=== PATIENT | female | born 1940 | race Caucasian/White ===

== ENCOUNTER 2017-02-14 12:35 | Inpatient (IN) | payer MEDICARE ==
[~2017-02-14] VITALS: Ht 157.5 cm; Wt 75.0 kg
[2017-02-14] MEDS ORDERED: FUROSEMIDE 40 MG INJ IV ONE (13:00)
--- NOTE | 2017-02-14 13:03 | ERD ---
ER Documentation Chief Complaint Chief Complaint SENT FROM [facility] FOR ELEVATED WBC. HPI 76-year-old woman with a history of congestive heart failure and tracheostomy, mechanical ventilator dependence presents with shortness of breath and pulmonary edema identified on recent chest x-ray. She was also sent here for evaluation of leukocytosis. She denies pain, no fevers or chills, no vomiting, no diarrhea, no headache or blurry vision. Patient was transported here by EMS without further complications ROS All systems reviewed and are negative except as per history of present illness. PMhx/Soc Obesity, CHF, atrial fibrillation, tracheostomy on mechanical ventilator dependence, hypertension, anemia, candidal infections of the urinary tract, GERD , hyperlipidemia, hypothyroidism, diffuse muscle weakness, depression, COPD Physical Exam Vitals Vital Signs Date Time Temp Pulse Resp B/P Pulse Ox O2 Delivery O2 Flow Rate FiO2 02/14/17 12:53 82 16 100 60 02/14/17 12:44 99.5 80 16 145/63 99 Physical Exam GENERAL: Well-developed, dyspneic, febrile HEENT: Moist mucous membranes, tracheostomy in place, pink conjunctiva, no cervical spine tenderness or step-off deformities, no goiter, no jaundice or icterus, extraocular movements intact without pain. No submandibular induration , and no pharyngeal erythema NEURO: Alert and oriented 3, cranial nerves II through XII intact bilaterally, pupils equal round reactive to light, no focal deficits or facial asymmetry, lower extremity paresis CARDIAC: Regular rate and rhythm, no murmurs rubs or gallops LUNGS: Poor breath sounds, crackles ABDOMEN: Soft nontender, no guarding, no rigidity, no rebound, no psoas sign no obturator sign. SKIN: Warm and dry to touch, no abrasions, contusions, or hematomas, no lacerations, no ecchymosis, no target lesions, and without ulcers EXTREMITIES: No clubbing cyanosis or edema, diffuse muscular wasting, calves are bilaterally symmetrical, no Homans sign, no popliteal cord sign. Distal pulses equal and bilateral PSYCH: Normal affect without agitation or irritability Result Diagram: 02/14/17 1300 02/14/17 1300 Results 24 hrs Laboratory Tests Test 02/14/17 13:00 02/14/17 13:51 White Blood Count 22.410^3/ul Red Blood Count 3.3110^6/ul Hemoglobin 10.3g/dl Hematocrit 32.4% Mean Corpuscular Volume 97.9fl Mean Corpuscular Hemoglobin 31.1pg Mean Corpuscular Hemoglobin Concent 31.8g/dl Red Cell Distribution Width 15.5% Platelet Count 37930^3/UL Mean Platelet Volume 9.9fl Neutrophils % 88.7% Lymphocytes % 3.7% Monocytes % 6.2% Eosinophils % 0.4% Basophils % 0.1% Nucleated Red Blood Cells % 0.0/100WBC Neutrophils # 19.810^3/ul Lymphocytes # 0.810^3/ul Monocytes # 1.410^3/ul Eosinophils # 0.110^3/ul Basophils # 0.010^3/ul Nucleated Red Blood Cells # 0.010^3/ul Prothrombin Time 16.4Sec Prothrombin Time Ratio 1.3 INR International Normalized Ratio 1.30 Sodium Level 134mmol/L Potassium Level 4.8mmol/L Chloride Level 96mmol/L Carbon Dioxide Level 24mmol/L Anion Gap 19 Blood Urea Nitrogen 20mg/dl Creatinine 0.70mg/dl Glucose Level 101mg/dl Lactic Acid Level 1.4mmol/L Calcium Level 9.0mg/dl Total Bilirubin 0.2mg/dl Direct Bilirubin 0.00mg/dl Indirect Bilirubin 0.2mg/dl Aspartate Amino Transf (AST/SGOT) 57IU/L Alanine Aminotransferase (ALT/SGPT) 63IU/L Alkaline Phosphatase 200IU/L Troponin I 0.041ng/ml B-Type Natriuretic Peptide 990PG/ML Total Protein 6.7g/dl Albumin 3.6g/dl Globulin 3.10g/dl Albumin/Globulin Ratio 1.16 Lipase 62U/L Urine Color YELLOW Urine Clarity CLEAR Urine pH 6.0 Urine Specific [place] 1.012 Urine Ketones NEGATIVEmg/dL Urine Nitrite NEGATIVEmg/dL Urine Bilirubin NEGATIVEmg/dL Urine Urobilinogen NEGATIVEmg/dL Urine Leukocyte Esterase NEGATIVELeu/ul Urine Microscopic RBC 6/HPF Urine Microscopic WBC 1/HPF Urine Hemoglobin 1+mg/dL Urine Glucose NEGATIVEmg/dL Urine Total Protein NEGATIVEmg/dl Current Medications Medications (Trade) Dose Ordered Sig/Kaykay Route PRN Reason Start Time Stop Time Status Last Admin Dose Admin Furosemide 60 mg 60 mg ONCE ONCE IV 02/14/17 13:00 02/14/17 13:01 DC 02/14/17 13:47 Cefepime HCl 50 ml @ 100 mls/hr ONCE ONCE IVPB 02/14/17 13:30 02/14/17 13:59 DC 02/14/17 13:47 Azithromycin (Zithromax 500mg/ NS (Pmx)) 250 ml @ 250 mls/hr ONCE ONCE IVPB 02/14/17 14:30 02/14/17 15:29 Procedures/MDM IV line was established patient was placed on bus driver/monitor rhythm strip revealed a sinus rhythm at about 80 bpm with upright P and T waves. Patient was febrile, blood and urine cultures have been ordered results are pending I will follow-up. I do not suspect sepsis. EKG performed, read by me revealed a normal sinus rhythm at 77 bpm, normal axis , narrow QRS complex, no concerning ST elevations or depressions noted. One view chest x-ray performed, read by me revealed pulmonary edema and early infiltrates at the bases bilaterally, no pneumothorax, no air under the diaphragm, tracheostomy tube in place. I administered cefepime 1 g IV and azithromycin 500 mg IV. Patient also also received furosemide 60 mg IV 1 for diuresis CBC revealed a leukocytosis at 22, electrolytes were unremarkable, liver function tests normal, troponin negative, BNP elevated consistent with decompensated heart failure. Lactic acid was low. Urine analysis was negative for infection. Patient is currently on a mechanical ventilator and has been treated with diuretics and IV antibiotics. She will be admitted to telemetry setting for continued medical management and antibiotic therapy. Departure Diagnosis: Primary Impression: Bilateral pneumonia Pneumonia type: due to unspecified organism Lung location: lower lobe of lung Qualified Code: J18.9 - Pneumonia of both lower lobes due to infectious organism Additional Impressions: Acute decompensated heart failure Tracheostomy tube present Leukocytosis Leukocytosis type: lymphocytosis Qualified Code: D72.820 - Lymphocytosis Condition: AMANDEEP Solomon MD Feb 14, 2017 13:03
--- NOTE | 2017-02-14 13:19 | RADRPT ---
PROCEDURE: XR Chest. CLINICAL INDICATION: Shortness of breath. TECHNIQUE: Single frontal view. COMPARISON: None. FINDINGS: The tracheostomy tube is noted. There is mild air space and interstitial disease at the lung bases. The lungs are otherwise clear. The heart size is normal. There is calcification in the aorta consistent with atherosclerosis. There is no pleural effusion. There is no pneumothorax. IMPRESSION: 1. Tracheostomy tube. 2. Mild air space and interstitial disease at the lung bases consistent with pulmonary edema or bib asilar pneumonia. 3. Atherosclerosis. 4. Otherwise unremarkable chest radiograph. RPTAT: QQ .Yahir Land MD, MD Date Time Electronically viewed and signed by .Yahir Land MD, MD on 02/14/2017 13:18 .R/
[2017-02-14] MEDS ORDERED: CEFEPIME 1GM/50 ML (PMX) 50 ML IVPB ONE (13:30)
[2017-02-14 13:31] LABS: BASOPHILS % 0.1 % (0.0-2.0); EOSINOPHILS # 0.1 10^3/ul (0.0-0.5); EOSINOPHILS % 0.4 % (0.0-7.0); HEMATOCRIT 32.4 % (37.0-47.0); HEMOGLOBIN 10.3 g/dl (12.0-16.0); LYMPHOCYTES # 0.8 10^3/ul (0.8-2.9); LYMPHOCYTES % 3.7 % (15.0-51.0); MEAN CORPUSCULAR HEMOGLOBIN 31.1 pg (29.0-33.0); MEAN CORPUSCULAR HGB CONC 31.8 g/dl (32.0-37.0); MEAN CORPUSCULAR VOLUME 97.9 fl (82.0-101.0); MEAN PLATELET VOLUME 9.9 fl (7.4-10.4); MONOCYTE # 1.4 10^3/ul (0.3-0.9); MONOCYTES % 6.2 % (0.0-11.0); NEUTROPHIL # 19.8 10^3/ul (1.6-7.5); NEUTROPHILS % 88.7 % (39.0-77.0); PLATELET COUNT 323 10^3/UL (140-415); RED BLOOD COUNT 3.31 10^6/ul (4.20-5.40); RED CELL DISTRIBUTION WIDTH 15.5 % (11.5-14.5); WHITE BLOOD COUNT 22.4 10^3/ul (4.8-10.8)
[2017-02-14 13:44] LABS: INR 1.3; PROTIME 16.4 Sec (11.9-14.9); PT RATIO 1.3
[2017-02-14 13:49] LABS: ALBUMIN 3.6 g/dl (3.3-4.9); ALBUMIN/GLOBULIN RATIO 1.16; BILIRUBIN,INDIRECT 0.2 mg/dl (0-1.1); BILIRUBIN,TOTAL 0.2 mg/dl (0.2-1.3); CREATININE 0.7 mg/dl (0.44-1.00); POTASSIUM 4.8 mmol/L (3.5-5.1); TOTAL PROTEIN 6.7 g/dl (6.1-8.1)
[2017-02-14 13:59] LABS: TROPONIN-I 0.041 ng/ml (0.00-0.12)
[2017-02-14 14:04] LABS: ADD UMIC YES; UR ASCORBIC ACID 40 mg/dL (NEGATIVE); UR BILIRUBIN (Dip) NEGATIVE (NEGATIVE); UR BLOOD (Dip) 1+ mg/dL (NEGATIVE); UR CLARITY CLEAR (CLEAR); UR COLOR YELLOW (YELLOW); UR GLUCOSE (Dip) NEGATIVE (NEGATIVE); UR KETONES (Dip) NEGATIVE (NEGATIVE); UR LEUKOCYTE ESTERASE (Dip) NEGATIVE Leu/ul (NEGATIVE); UR NITRITE (Dip) NEGATIVE (NEGATIVE); UR RBC 6 /HPF (0-5); UR SPECIFIC GRAVITY (Dip) 1.012 (1.003-1.030); UR TOTAL PROTEIN (Dip) NEGATIVE (NEGATIVE); UR UROBILINOGEN (Dip) NEGATIVE (NEGATIVE)
[2017-02-14] MEDS ORDERED: AZITHROMYCIN 500MG/NS (PMX) 250 ML IVPB ONE (14:30)
[2017-02-14] MEDS ORDERED: ALBU2.5V3 NEB (14:54)
[2017-02-14] MEDS ORDERED: ALLO100T GTB (14:54)
[2017-02-14] MEDS ORDERED: APIX2.5T GTB (14:54)
[2017-02-14] MEDS ORDERED: ASPI81TA3 GTB (14:55)
[2017-02-14] MEDS ORDERED: LORA-441 GTB (14:56)
[2017-02-14] MEDS ORDERED: ATOR20TA38 GTB (14:56)
[2017-02-14] MEDS ORDERED: CHLO473M4 MM (14:57)
[2017-02-14] MEDS ORDERED: DOCU-144 GTB (14:58)
[2017-02-14] MEDS ORDERED: BISA10SU75 PR (14:59)
--- NOTE | 2017-02-14 15:08 | HP ---
Date/Time of Note Date/Time of Note DATE: 02/14/17 TIME: 14:54 Assessment/Plan VTE Prophylaxis VTE Prophylaxis Intervention: other (eliquis) Assessment/Plan Assessment/Plan 76-year-old female who was sent from assisted facility for abnormal chest x-ray and leukocytosis chronically ventilator dependent now managed as follows: 1. Acute respiratory failure superimposed on chronic respiratory failure chronically ventilator dependent via tracheostomy (original indication unclear) 2. Sepsis evidenced by hypoxia, fever and leukocytosis secondary to #3 3. Bilateral pneumonia 4. Paroxysmal atrial fibrillation currently in sinus rhythm 5. GERD 6. Reported Hypothyroidism 7. Hyperlipidemia 8. History of CHF 9. Anemia of chronic disease stable 10. S/p PEG tube but eats using her mouth she says PLAN: * Admit patient for antibiotic treatment, ID review, also send pancultures. We will also continue ventilator management and get pulmonary consultation to help with that * Resume all home medications except aspirin as patient is on Eliquis * Also r/o ACS and get 2D echo to assess hx of CHF * Per reports patient has history of hypothyroidism but is not on any replacement, Send TSH. * Also provide gentle hydration and supportive care. * OK for icechips and meds for oral gratification otherwise patient will be n.p.o. for now until dietary and speech therapy review. * Patient will also require serial labs and interventions as indicated. * Further interventions per clinical course. Prognosis : Guarded HPI/ROS Admit Date/Time Admit Date/Time 02/14/17 Hx of Present Illness 76-year-old female who was sent from the assisted facility where she resides because of shortness of breath abnormal chest x-ray and leukocytosis. She has a history of chronic respiratory failure on mechanical ventilator dependent via tracheostomy. The reason is unclear, and the patient does not know either. Currently she is alert and oriented and in very good spirits and denies pain. She has a PEG tube but she assures me she eats via her mouth. She is able to move all extremities, but does not walk she tells me. Because of the tracheostomy it is very hard to get a good history from her. Her speech is interrupted by episodes of coughing. There was no report of fever, abdominal pain, hematuria, hematochezia, altered mentation or passing out episodes. ROS 12 point review if systems was done and pertinent findings are as noted. PMH/Family/Social Past Medical History 1. Chronic respiratory failure ventilator dependent 2. Paroxysmal atrial fibrillation 3. DYslipidemia 4. Congestive heart failure 5. GERD 6. Hypothyroidism 7. HLD 8. CHF 9. anemia of chronic disease Social History Smoking Status: Never smoker Exam/Review of Systems Vital Signs Vitals VS - Last 72 Hours, by Label Date Time Temp Pulse Resp B/P Pulse Ox O2 Delivery O2 Flow Rate FiO2 02/14/17 12:53 82 16 100 60 02/14/17 12:44 99.5 80 16 145/63 99 Vital Signs Date Time Temp Pulse Resp B/P Pulse Ox O2 Delivery O2 Flow Rate FiO2 02/14/17 12:53 82 16 100 60 02/14/17 12:44 99.5 145/63 Exam Constitutional: alert, oriented, other (obese), No distress Psych: nl mood/affect Head: normocephalic Eyes: PERRL Neck: other (trach to vent) Respiratory: diminished breath sounds, wheezing (occasional) Cardiovascular: regular rate and rhythm, No murmurs/extra sounds Gastrointestinal: bowel sounds, non-tender, other (PEG tube noted), soft Genitourinary - Female: other (motta to BS draining clear urine) Musculoskeletal: other (patient has arthritic changes in both hands) Extremities: No edema Neurological: No focal weakness Labs Result Diagram: 02/14/17 1300 02/14/17 1300 Medications Medications Current Medications Azithromycin (Zithromax 500mg/ NS (Pmx)) 250 ml @ 250 mls/hr ONCE ONCE IVPB ; Start 02/14/17 at 14:30; Stop 02/14/17 at 15:29 Procedures Procedures Laboratory Tests Test 02/14/17 13:00 02/14/17 13:51 White Blood Count 22.410^3/ul Red Blood Count 3.3110^6/ul Hemoglobin 10.3g/dl Hematocrit 32.4% Mean Corpuscular Volume 97.9fl Mean Corpuscular Hemoglobin 31.1pg Mean Corpuscular Hemoglobin Concent 31.8g/dl Red Cell Distribution Width 15.5% Platelet Count 12147^3/UL Mean Platelet Volume 9.9fl Neutrophils % 88.7% Lymphocytes % 3.7% Monocytes % 6.2% Eosinophils % 0.4% Basophils % 0.1% Nucleated Red Blood Cells % 0.0/100WBC Neutrophils # 19.810^3/ul Lymphocytes # 0.810^3/ul Monocytes # 1.410^3/ul Eosinophils # 0.110^3/ul Basophils # 0.010^3/ul Nucleated Red Blood Cells # 0.010^3/ul Prothrombin Time 16.4Sec Prothrombin Time Ratio 1.3 INR International Normalized Ratio 1.30 Sodium Level 134mmol/L Potassium Level 4.8mmol/L Chloride Level 96mmol/L Carbon Dioxide Level 24mmol/L Anion Gap 19 Blood Urea Nitrogen 20mg/dl Creatinine 0.70mg/dl Glucose Level 101mg/dl Lactic Acid Level 1.4mmol/L Calcium Level 9.0mg/dl Total Bilirubin 0.2mg/dl Direct Bilirubin 0.00mg/dl Indirect Bilirubin 0.2mg/dl Aspartate Amino Transf (AST/SGOT) 57IU/L Alanine Aminotransferase (ALT/SGPT) 63IU/L Alkaline Phosphatase 200IU/L Troponin I 0.041ng/ml B-Type Natriuretic Peptide 990PG/ML Total Protein 6.7g/dl Albumin 3.6g/dl Globulin 3.10g/dl Albumin/Globulin Ratio 1.16 Lipase 62U/L Urine Color YELLOW Urine Clarity CLEAR Urine pH 6.0 Urine Specific [place] 1.012 Urine Ketones NEGATIVEmg/dL Urine Nitrite NEGATIVEmg/dL Urine Bilirubin NEGATIVEmg/dL Urine Urobilinogen NEGATIVEmg/dL Urine Leukocyte Esterase NEGATIVELeu/ul Urine Microscopic RBC 6/HPF Urine Microscopic WBC 1/HPF Urine Hemoglobin 1+mg/dL Urine Glucose NEGATIVEmg/dL Urine Total Protein NEGATIVEmg/dl Current Medications Medications (Trade) Dose Ordered Sig/Kaykay Route PRN Reason Start Time Stop Time Status Last Admin Dose Admin Furosemide 60 mg 60 mg ONCE ONCE IV 02/14/17 13:00 02/14/17 13:01 DC 02/14/17 13:47 60 MG Cefepime HCl 50 ml @ 100 mls/hr ONCE ONCE IVPB 02/14/17 13:30 02/14/17 13:59 DC 02/14/17 13:47 100 MLS/HR Azithromycin (Zithromax 500mg/ NS (Pmx)) 250 ml @ 250 mls/hr ONCE ONCE IVPB 02/14/17 14:30 02/14/17 15:29 PROCEDURE: XR Chest. CLINICAL INDICATION: Shortness of breath. TECHNIQUE: Single frontal view. COMPARISON: None. FINDINGS: The tracheostomy tube is noted. There is mild air space and interstitial disease at the lung bases. The lungs are otherwise clear. The heart size is normal. There is calcification in the aorta consistent with atherosclerosis. There is no pleural effusion. There is no pneumothorax. IMPRESSION: 1. Tracheostomy tube. 2. Mild air space and interstitial disease at the lung bases consistent with pulmonary edema or bibasilar pneumonia. 3. Atherosclerosis. 4. Otherwise unremarkable chest radiograph. RPTAT: QQ .Yahir Land MD, MD Date Time Electronically viewed and signed by .Yahir Land MD, MD on 02/14/2017 13:18 .R/ CC: AMANDEEP GONZALEZ MD I reviewed EKG Rate: Within normal limits Rhythm: sinus Note: No ST elevation or depressions noted concerning for acute ischemic event. JEROME DUMAS Feb 14, 2017 15:05
[2017-02-14] MEDS ORDERED: FRS220B GTB (15:11)
[2017-02-14] MEDS ORDERED: MINE133E23 PR (15:13)
[2017-02-14] MEDS ORDERED: POTA20TA96 GTB (15:14)
[2017-02-14] MEDS ORDERED: HYDR-3670 PO (15:14)
[2017-02-14] MEDS ORDERED: LAMO200T GTB (15:15)
[2017-02-14] MEDS ORDERED: LEVO25TA53 GTB (15:16)
[2017-02-14] MEDS ORDERED: LOSA25TA5 GTB (15:17)
[2017-02-14] MEDS ORDERED: MAGN400O4 GTB (15:17)
[2017-02-14] MEDS ORDERED: MONT10TA24 GTB (15:17)
[2017-02-14] MEDS ORDERED: HYDR-906 GTB (15:18)
[2017-02-14] MEDS ORDERED: MULTI GTB (15:18)
[2017-02-14] MEDS ORDERED: PRAM0.5T GTB (15:19)
[2017-02-14] MEDS ORDERED: PRIM250T37 GTB (15:20)
[2017-02-14] MEDS ORDERED: BUDE1AMP INHALATION (15:20)
[2017-02-14] MEDS ORDERED: ACET-2047 GTB (15:21)
[2017-02-14] MEDS ORDERED: CRAN3875 GTB (15:21)
[2017-02-14] MEDS ORDERED: ASCO500C7 GTB (15:22)
[2017-02-14] MEDS ORDERED: BISACODYL 10 MG SUPP PR PRN (15:30)
[2017-02-14] MEDS ORDERED: ALBUTEROL 0.083% (NEB) 2.5 MG/3 ML AMP NEB PRN (15:30)
[2017-02-14] MEDS: SOD CHLORIDE 0.9% 1,000 ML IV SCH (15:30)
[2017-02-14] MEDS ORDERED: ONDANSETRON 4 MG INJ IV PRN (15:30)
[2017-02-14 19:32] LABS: PHOSPHORUS 3.4 mg/dl (2.5-4.9)
[2017-02-14 19:46] LABS: CK-MB 1.05 ng/ml (0.0-2.4); TROPONIN-I 0.037 ng/ml (0.00-0.12)
--- NOTE | 2017-02-14 20:34 | CONS ---
DATE OF ADMISSION: 02/14/2017 DATE OF CONSULTATION: 02/14/2017 TYPE FOR CONSULTATION: Infectious disease REASON FOR CONSULTATION: Antibiotic management. HISTORY OF PRESENT ILLNESS: Maribel Sin is an unfortunate 76-year-old female who was sent from [facility] for abnormal chest x-ray and leukocytosis. Her past problems include: 1. Chronic respiratory failure/ventilator dependent respiratory failure. 2. Status post tracheostomy. 3. Dysphagia status post G-tube placement. The patient is arousable and responsive. She has a G t ube as noted, but she can eat by mouth as well. She moves all extremities, but does not walk. She has a Kevin catheter in place at the present time as well. Other problems include dyslipidemia, TONY D, hypothyroidism, hyperlipidemia, congestive heart failure and anemia of chronic disease. PAST MEDICAL HISTORY: As outlined. FAMILY HISTORY: Noncontributory. SOCIAL HISTORY: She does not smoke, drink or abuse drugs. ALLERGIES: NONE TO PENICILLIN, SULFA OR FOODS. MEDICATIONS: Per chart. REVIEW OF SYSTEMS: As per HPI. PHYSICAL EXAMINATION: GENERAL: The patient is a well-developed, well-nourished elderly female who is awake, responsive, i n no acute distress. VITAL SIGNS: Stable. She is afebrile. SKIN: Without generalized rash. HEENT: Within normal limits. NECK: Supple. She has a tracheostomy without exudate. LYMPH NODES: None palpable. CHEST: Decreased breath sounds at the bases with occasional wheezes. HEART: Without murmur or gallop. ABDOMEN: Soft, nontender. G-tube in place without organosplenomegaly or masses. EXTREMITIES: Without cyanosis, clubbing, or edema. RECTAL AND GENITAL: Kevin catheter in place. NEUROLOGIC: No focal abnormalities. ANCILLARY LABORATORY DATA: Her white count was 22.4, H and H 10.3 and 32.4. Platelet count 323,000 . BUN and creatinine 20/0.7. Glucose is 101. Patient was initially started on azithromycin and ce fepime was added as well. Her chest x-ray shows some mild airspace and interstitial disease at the lung bases. We will continue her on her normal medications as well as cefepime. I will dictate my findings to Dr. Snyder.. Dictated By: LEVI STARK MD, JD/JORY Conf#: [id number] [facility]#: [id number] CC: LEVI STARK MD;*End*
[2017-02-14] MEDS ORDERED: CHLORHEXIDINE GLUCONATE 15 ML UD CUP MM SCH (21:00)
[2017-02-14] MEDS: DOCUSATE SODIUM 100 MG CAP PO SCH (21:00)
[2017-02-14] MEDS: ATORVASTATIN 20 MG TAB GTB SCH (22:04)
[2017-02-14] MEDS: CHLORHEXIDINE GLUCONATE 15 ML UD CUP MM SCH (22:04)
[2017-02-14] MEDS: FAMOTIDINE 20 MG INJ IV SCH (22:04)
[2017-02-14] MEDS: APIXABAN 5 MG TABLET GTB SCH (22:04)
[2017-02-14 23:00] VITALS: TEMP 98.9
[2017-02-14] MEDS: CEFEPIME 1GM/50 ML (PMX) 50 ML IVPB SCH (23:11)
[2017-02-15] VITALS (27 sets, daily range): BP systolic 91–164; BP diastolic 46–77; PULSE 46–89; RESP 16–20; Ht 157.5 cm; Wt 75.0 kg
[2017-02-15] MEDS ORDERED: ONDANSETRON 4 MG INJ IV PRN (01:30)
[2017-02-15] MEDS ORDERED: ACETAMINOPHEN 650MG/20.3ML CUP GTB PRN ×2 (01:30→17:30)
[2017-02-15 01:36] LABS: CK-MB 1.15 ng/ml (0.0-2.4); TROPONIN-I 0.045 ng/ml (0.00-0.12)
[2017-02-15] MEDS: TRIAMCINOLONE ACET 0.025% 15 GM OINT TOP SCH ×3 (03:06→20:36)
[2017-02-15] MEDS: DIPHENHYDRAMINE 1%/ZINC 28.3 GM CR TOP PRN ×2 (03:07→10:26)
[2017-02-15] MEDS: SOD CHLORIDE 0.9% 1,000 ML IV SCH (03:23)
[2017-02-15] MEDS: HYDROCODONE/APAP (5/325) TAB PO PRN (06:45)
[2017-02-15 08:29] LABS: BASOPHILS % 0.3 % (0.0-2.0); EOSINOPHILS # 0.2 10^3/ul (0.0-0.5); EOSINOPHILS % 1.6 % (0.0-7.0); HEMATOCRIT 27.4 % (37.0-47.0); HEMOGLOBIN 8.8 g/dl (12.0-16.0); LYMPHOCYTES # 0.7 10^3/ul (0.8-2.9); MEAN CORPUSCULAR HEMOGLOBIN 30.9 pg (29.0-33.0); MEAN CORPUSCULAR HGB CONC 32.1 g/dl (32.0-37.0); MEAN CORPUSCULAR VOLUME 96.1 fl (82.0-101.0); MEAN PLATELET VOLUME 9.9 fl (7.4-10.4); MONOCYTE # 0.9 10^3/ul (0.3-0.9); MONOCYTES % 7.4 % (0.0-11.0); NEUTROPHIL # 9.8 10^3/ul (1.6-7.5); NEUTROPHILS % 84.3 % (39.0-77.0); PLATELET COUNT 294 10^3/UL (140-415); RED BLOOD COUNT 2.85 10^6/ul (4.20-5.40); RED CELL DISTRIBUTION WIDTH 15.4 % (11.5-14.5); WHITE BLOOD COUNT 11.6 10^3/ul (4.8-10.8)
[2017-02-15] MEDS: CHLORHEXIDINE GLUCONATE 15 ML UD CUP MM SCH ×2 (08:50→20:31)
[2017-02-15] MEDS: CEFEPIME 1GM/50 ML (PMX) 50 ML IVPB SCH ×2 (08:51→20:30)
[2017-02-15] MEDS: ALLOPURINOL 100 MG TAB GTB SCH (08:51)
[2017-02-15] MEDS: APIXABAN 5 MG TABLET GTB SCH ×2 (08:51→20:32)
[2017-02-15] MEDS: FAMOTIDINE 20 MG INJ IV SCH ×2 (08:51→20:34)
[2017-02-15 08:57] LABS: IRON < 10 ug/dl (35-150)
[2017-02-15 09:00] LABS: CALCIUM 8.9 mg/dl (8.4-10.2); CHOL/HDL RATIO 2.1 RATIO; CREATININE 0.64 mg/dl (0.44-1.00); POTASSIUM 3.8 mmol/L (3.5-5.1); TOTAL IRON BINDING CAPACITY 229 ug/dl (241-421)
[2017-02-15 09:09] LABS: T3 UPTAKE 37.7 % (23.5-40.5)
[2017-02-15 09:35] LABS: THYROID STIMULATING HORMONE 2.84 MIU/L (0.465-4.680)
--- NOTE | 2017-02-15 12:16 | CONS ---
Date/Time of Note Date/Time of Note DATE: 02/15/17 TIME: 12:12 Assessment/Plan Assessment/Plan Additional Assessment/Plan Chest x-ray was reviewed which is showing bibasilar pneumonia more pronounced in the left lower lobe. Ventilator setting; AC of 16, tidal volume 600, PEEP of 5, 40% FiO2. Assessment and recommendations; 1. Patient with history of chronic respiratory failure admitted for bibasilar pneumonia, currently on appropriate antibiotic regimen. There has been significant decline in leukocytosis. 2. History of anemia, paroxysmal atrial fibrillation, patient however currently in sinus rhythm. 3. Compensated CHF. 4. History of hypothyroidism. 5. Generalized deconditioning. Continue current supportive care. She responding well to current treatment regimen. Consultation Date/Type/Reason Admit Date/Time 02/14/17 Date of Consultation: Feb 15, 2017 Type of Consultation: Pulmonary Reason for Consultation Pulmonary consultation requested for evaluation of chronic respiratory failure as well as pneumonia. Next History of presenting any; patient is a pleasant 76-year-old lady who was admitted yesterday from [facility] with complaints of fever. Upon evaluation further workup was done including a chest x-ray which is showing bibasilar pneumonia with significant leukocytosis. The patient has been started on appropriate antibiotic regimen with significant interval improvement over the last several hours. By the time I saw the patient the patient is on ventilator via tracheostomy is completely awake and alert and denies any shortness of breath or chest pain. Also denies any fever or chills. Denies any nausea or vomiting. Past medical history; 1. History of chronic respiratory failure which is ventilator dependent. 2. CHF. 3. Paroxysmal atrial fibrillation, patient currently in sinus rhythm. 4. Anemia. 5. Hypothyroidism. Medications; reviewed. Allergies; Quinolone antibiotics. Social history; no show any smoking. Family history; noncontributory. Review of systems; patient denies any headache, seizures. Any chest pain. Shortness of breath is improving. Denies any coughing or wheezing. Denies any abdominal pain. Any fever or chills. Any nausea or vomiting. Denies any orthopnea. General exam; elderly woman, on ventilator via tracheostomy, awake and alert. Currently in no distress. Social History Smoking Status: Never smoker Exam/Review of Systems Vital Signs Vitals Vital Signs Date Time Temp Pulse Resp B/P Pulse Ox O2 Delivery O2 Flow Rate FiO2 02/15/17 11:29 99.0 69 16 136/60 100 02/15/17 07:57 40 02/14/17 23:59 Mechanical Ventilator Intake and Output 02/14/17 02/14/17 02/15/17 15:00 23:00 07:00 Intake Total 1100 ml Output Total 450 ml Balance 650 ml Exam HEENT exam; supple neck, no JVD. No lymphadenopathy. Midline trachea. No thyromegaly. Patient has a tracheostomy in place insertion site is clean. Patient is edentulous and wears dentures. Chest exam; diminished breath sounds bilaterally. S1-S2 audible, no murmurs. Regular rhythm. Abdomen exam; soft, nondistended. No organomegaly. Bowel sounds audible. G- tube in place. Extremity exam; no edema. There is a small skin tear involving the left arm. 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 Results Result Diagram: 02/15/17 0759 02/15/17 0759 Results 24 hrs Laboratory Tests Test 02/14/17 13:00 02/14/17 13:51 02/14/17 19:05 02/15/17 01:01 White Blood Count 22.4 H Red Blood Count 3.31 L Hemoglobin 10.3 L Hematocrit 32.4 L Mean Corpuscular Volume 97.9 Mean Corpuscular Hemoglobin 31.1 Mean Corpuscular Hemoglobin Concent 31.8 L Red Cell Distribution Width 15.5 H Platelet Count 323 Mean Platelet Volume 9.9 Neutrophils % 88.7 H Lymphocytes % 3.7 L Monocytes % 6.2 Eosinophils % 0.4 Basophils % 0.1 Nucleated Red Blood Cells % 0.0 Neutrophils # 19.8 H Lymphocytes # 0.8 Monocytes # 1.4 H Eosinophils # 0.1 Basophils # 0.0 Nucleated Red Blood Cells # 0.0 Prothrombin Time 16.4 H Prothrombin Time Ratio 1.3 INR International Normalized Ratio 1.30 Sodium Level 134 L Potassium Level 4.8 Chloride Level 96 L Carbon Dioxide Level 24 Anion Gap 19 H Blood Urea Nitrogen 20 Creatinine 0.70 Glucose Level 101 Lactic Acid Level 1.4 1.8 Calcium Level 9.0 Total Bilirubin 0.2 Direct Bilirubin 0.00 Indirect Bilirubin 0.2 Aspartate Amino Transf (AST/SGOT) 57 H Alanine Aminotransferase (ALT/SGPT) 63 Alkaline Phosphatase 200 H Troponin I 0.041 0.037 0.045 B-Type Natriuretic Peptide 990 H Total Protein 6.7 Albumin 3.6 Globulin 3.10 Albumin/Globulin Ratio 1.16 Lipase 62 Urine Color YELLOW Urine Clarity CLEAR Urine pH 6.0 Urine Specific [place] 1.012 Urine Ketones NEGATIVE Urine Nitrite NEGATIVE Urine Bilirubin NEGATIVE Urine Urobilinogen NEGATIVE Urine Leukocyte Esterase NEGATIVE Urine Microscopic RBC 6 H Urine Microscopic WBC 1 Urine Hemoglobin 1+ H Urine Glucose NEGATIVE Urine Total Protein NEGATIVE Phosphorus Level 3.4 Magnesium Level 2.0 Creatine Kinase 45 31 Creatine Kinase Index 2.3 3.7 Creatinine Kinase MB (Mass) 1.05 1.15 Test 02/15/17 07:59 White Blood Count 11.6 #H Red Blood Count 2.85 L Hemoglobin 8.8 L Hematocrit 27.4 L Mean Corpuscular Volume 96.1 Mean Corpuscular Hemoglobin 30.9 Mean Corpuscular Hemoglobin Concent 32.1 Red Cell Distribution Width 15.4 H Platelet Count 294 Mean Platelet Volume 9.9 Neutrophils % 84.3 H Lymphocytes % 6.0 L Monocytes % 7.4 Eosinophils % 1.6 Basophils % 0.3 Nucleated Red Blood Cells % 0.0 Neutrophils # 9.8 H Lymphocytes # 0.7 L Monocytes # 0.9 Eosinophils # 0.2 Basophils # 0.0 Nucleated Red Blood Cells # 0.0 Sodium Level 136 Potassium Level 3.8 Chloride Level 102 Carbon Dioxide Level 26 Anion Gap 12 # Blood Urea Nitrogen 14 Creatinine 0.64 Glucose Level 97 Hemoglobin A1c 5.4 Calcium Level 8.9 Iron Level < 10 L Total Iron Binding Capacity 229 L Percent Iron Saturation Triglycerides Level 73 Cholesterol Level 148 LDL Cholesterol, Calculated 65 HDL Cholesterol 68 Cholesterol/HDL Ratio 2.1 Thyroid Stimulating Hormone (TSH) 2.840 Free Thyroxine Index 2.15 Thyroxine (T4) 5.7 Triiodothyronine (T3) Uptake 37.7 Medications Medications Current Medications Albuterol (Proventil 0.083% (Neb)) 2.5 mg Q3H PRN NEB WHEEZING AND SOB; Start 02/14/17 at 15:30 Allopurinol (Zyloprim) 100 mg DAILY GTB Last administered on 02/15/17 08:51; Admin Dose 100 MG; Start 02/15/17 at 09:00 Apixaban (Eliquis) 2.5 mg BID GTB Last administered on 02/15/17 08:51; Admin Dose 2.5 MG; Start 02/14/17 at 21:00 Atorvastatin Calcium (Lipitor) 20 mg QHS GTB Last administered on 02/14/17 22 :04; Admin Dose 20 MG; Start 02/14/17 at 21:00 Bisacodyl (Dulcolax Supp) 10 mg Q24H PRN [place] CONSTIPATION; Start 02/14/17 at 15 :30 Docusate Sodium (Colace) 100 mg QHS PO ; Start 02/14/17 at 21:00 Lorazepam (Ativan) 0.5 mg Q6 PRN GTB ANXIETY; Start 02/14/17 at 15:30 Famotidine 20 mg 20 mg BID IV Last administered on 02/15/17 08:51; Admin Dose 20 MG; Start 02/14/17 at 21:00 Cefepime HCl (Maxipime 1gm/50 ml (Pmx)) 50 ml @ 100 mls/hr Q12 IVPB Last administered on 02/15/17 08:51; Admin Dose 100 MLS/HR; Start 02/14/17 at 21: 00 Ondansetron HCl (Zofran Inj) 4 mg Q6H PRN IV NAUSEA AND/OR VOMITING Last administered on 02/15/17 03:06; Admin Dose 4 MG; Start 02/14/17 at 15:30 Chlorhexidine Gluconate (Peridex) 15 ml Q12 MM Last administered on 02/15/17 08:50; Admin Dose 15 ML; Start 02/14/17 at 22:00 Ondansetron HCl (Zofran Inj) 4 mg Q6H PRN IV NAUSEA AND/OR VOMITING; Start at 01:30 Triamcinolone Acetonide (Kenalog 0.025% Oint) 1 applic BID TOP Last administered on 02/15/17 08:51; Admin Dose 1 APPLIC; Start 02/15/17 at 01:30 ; Stop 02/17/17 at 08:00 Acetaminophen (Tylenol Liquid) 650 mg Q6H PRN GTB PAIN AND OR ELEVATED TEMP; Start 02/15/17 at 01:30 Diphenhydramine/ Zinc Oxide (Benadryl 1% Cr) 1 applic Q6H PRN TOP itching Last administered on 02/15/17 10:26; Admin Dose 1 APPLIC; Start 02/15/17 at 02:00 Acetaminophen/ Hydrocodone Bitart (Waite (5/325)) 1 tab Q6H PRN PO SEVERE PAIN LEVEL 7-10 Last administered on 02/15/17t 06:45; Admin Dose 1 TAB; Start 02/15 at 06:00 EDSON SOLORIO Feb 15, 2017 12:16
[2017-02-15] MEDS: HYDROCODONE/APAP (7.5/325) TAB GTB PRN ×2 (12:53→20:34)
[2017-02-15] MEDS: BACLOFEN 10 MG TAB PO SCH ×2 (12:53→20:32)
--- NOTE | 2017-02-15 13:52 | RADRPT ---
Echocardiogram Report Patient Name: EBONY ARAUJO Gender: Female Date: 1940 Study Date: 15-Feb-2017 Utility Specialist: MARIN Location: E Ref. Physician: JEROME DUMAS Quality: Technically Difficult Study Procedures: Transthoracic echocardiogram examination. Indications: Hypotension. 2D/M Mode Doppler Measurement Value Normal Range Measurement Value Normal Range IVSd 2D 1.4 0.6 - 1.1 cm AV Peak Geovanny 1.3 m/sec LA Dimen 2D 3.3 2.3 - 4.0 cm AV Peak PG 7.0 mmHg LVOT Peak Geovanny 1.1 m/sec MV E Peak Geovanny 0.5 m/sec MV A Peak Geovanny 0.6 m/sec MV E/A 0.9 MV Decel Time 319 msec MV Decel Daniels 2 MV E/A 0.9 Findings Left Ventricle: Normal left ventricular cavity size. Probably normal left ventricular systolic function, not all garcia are imaged clearly. Tissue Doppler/Mitral Doppler indices are consistent with impaired relaxation (Stage I diastolic dysfunction). Probably mild concentric left ventricular hypertrophy. The left ventricular ejection fraction is visually estimated at >60 %. Right Ventricle: Normal right ventricular size. Normal right ventricular systolic function. Left Atrium: The left atrium is normal in size and appearance. Right Atrium: The right atrium is normal in size and appearance. Atrial Septum: The atrial septum is not well visualized. Mitral Valve: The mitral valve is not well visualized. Mild mitral annular calcification. No mitral valve regurgitation is seen. Aortic Valve: The aortic valve is not well visualized. No aortic regurgitation. Tricuspid Valve: The tricuspid valve is not well visualized. No evidence of tricuspid regurgitation. Pulmonic Valve: The pulmonic valve is not well visualized. Pericardium: Normal pericardium with no significant pericardial effusion. Aorta: The aorta is not well visualized. IVC: The inferior vena cava is not well visualized. Pulmonary Artery: Pulmonary artery is not well visualized. Conclusions 1.Normal left ventricular cavity size. Probably normal left ventricular systolic function, not all garcia are imaged clearly. Tissue Doppler/Mitral Doppler indices are consistent with impaired relaxation (Stage I diastolic dysfunction). Probably mild concentric left ventricular hypertrophy. The left ventricular ejection fraction is visually estimated at >60 %. 2.The mitral valve is not well visualized. Mild mitral annular calcification. No mitral valve regurgitation is seen. 3.The aortic valve is not well visualized. No aortic regurgitation. 4.The tricuspid valve is not well visualized. No evidence of tricuspid regurgitation. 5.very suboptimal study. Electronically Signed By: Ankush Richard 15-Feb-2017 13:51:18 -0800 Patient Name: EBONY ARAUJO Study Date: 15-Feb-[id number]
--- NOTE | 2017-02-15 14:33 | PN ---
Date/Time of Note Date/Time of Note DATE: 02/15/17 TIME: 14:26 Assessment/Plan VTE Prophylaxis VTE Prophylaxis Intervention: other (Eliquis) Lines/Catheters IV Catheter Type (from Rust): Peripheral IV Urinary Cath still in place: Yes Reason Cath still needed: urinary retention Assessment/Plan Chief Complaint/Hosp Course S: Patient still on antibiotics, complaining of left arm rash. Had no acute events overnight, but in the last couple of hours as been having signs of possible suicidal ideation. O: VS (see below) PE: Constitutional: alert, oriented, lying in bed Head: normocephalic Eyes: PERRL Neck: other (trach to vent) Respiratory: some diminished breath sounds, wheezing (occasional) Cardiovascular: regular rate and rhythm, No murmurs/extra sounds Gastrointestinal: bowel sounds, non-tender, other (PEG tube noted), soft Genitourinary - Female: other (motta to BS draining clear urine) Musculoskeletal: other (patient has arthritic changes in both hands) Extremities: No edema Neurological: No focal weakness Assessment/Plan: 76-year-old female who was sent from senior care facility for abnormal chest x-ray and leukocytosis chronically ventilator dependent now managed as follows: 1. Acute respiratory failure superimposed on chronic respiratory failure chronically ventilator dependent via tracheostomy(original indication unclear) -Continue oxygen supplementation via mechanical ventilation, follow pulmonary recommendations -Duo nebs as needed 2. Sepsis evidenced by hypoxia, fever and leukocytosis secondary to bilateral pneumonia -WBC count slowly trending down, on antibiotic -Continue current antibiotics, follow pulmonary recommendations as well as infectious disease 3. Paroxysmal atrial fibrillation currently in sinus rhythm -Monitor heart rate, presently rate controlled, continue Eliquis as well 4. GERD -H2 brandy 5. Reported Hypothyroidism -thyroid labs are normal, continue to monitor 6. Hyperlipidemia -monitor 7. History of CHF -continue current meds 8. Anemia of chronic disease stable -for low iron levels, IV ferrous slit 9. S/p PEG tube but eats using her mouth she says -continue current feeds 10. Possible suicide ideation, social work assessment, and possible telemetry psychiatry consult Problems: Exam/Review of Systems Vital Signs Vitals Vital Signs Date Time Temp Pulse Resp B/P Pulse Ox O2 Delivery O2 Flow Rate FiO2 02/15/17 12:21 80 18 97 40 02/15/17 11:29 99.0 136/60 02/14/17 23:59 Mechanical Ventilator Intake and Output 02/14/17 02/14/17 02/15/17 14:59 22:59 06:59 Intake Total 1100 ml Output Total 450 ml Balance 650 ml Results Result Diagram: 02/15/17 0759 02/15/17 0759 Results 24 hrs Laboratory Tests Test 02/14/17 19:05 02/15/17 01:01 02/15/17 07:59 Lactic Acid Level 1.8 Phosphorus Level 3.4 Magnesium Level 2.0 Creatine Kinase 45 31 Creatine Kinase Index 2.3 3.7 Creatinine Kinase MB (Mass) 1.05 1.15 Troponin I 0.037 0.045 White Blood Count 11.6 #H Red Blood Count 2.85 L Hemoglobin 8.8 L Hematocrit 27.4 L Mean Corpuscular Volume 96.1 Mean Corpuscular Hemoglobin 30.9 Mean Corpuscular Hemoglobin Concent 32.1 Red Cell Distribution Width 15.4 H Platelet Count 294 Mean Platelet Volume 9.9 Neutrophils % 84.3 H Lymphocytes % 6.0 L Monocytes % 7.4 Eosinophils % 1.6 Basophils % 0.3 Nucleated Red Blood Cells % 0.0 Neutrophils # 9.8 H Lymphocytes # 0.7 L Monocytes # 0.9 Eosinophils # 0.2 Basophils # 0.0 Nucleated Red Blood Cells # 0.0 Sodium Level 136 Potassium Level 3.8 Chloride Level 102 Carbon Dioxide Level 26 Anion Gap 12 # Blood Urea Nitrogen 14 Creatinine 0.64 Glucose Level 97 Hemoglobin A1c 5.4 Calcium Level 8.9 Iron Level < 10 L Total Iron Binding Capacity 229 L Percent Iron Saturation Triglycerides Level 73 Cholesterol Level 148 LDL Cholesterol, Calculated 65 HDL Cholesterol 68 Cholesterol/HDL Ratio 2.1 Thyroid Stimulating Hormone (TSH) 2.840 Free Thyroxine Index 2.15 Thyroxine (T4) 5.7 Triiodothyronine (T3) Uptake 37.7 Medications Medications Current Medications Albuterol (Proventil 0.083% (Neb)) 2.5 mg Q3H PRN NEB WHEEZING AND SOB; Start 02/14/17 at 15:30 Allopurinol (Zyloprim) 100 mg DAILY GTB Last administered on 02/15/17 08:51; Admin Dose 100 MG; Start 02/15/17 at 09:00 Apixaban (Eliquis) 2.5 mg BID GTB Last administered on 02/15/17 08:51; Admin Dose 2.5 MG; Start 02/14/17 at 21:00 Atorvastatin Calcium (Lipitor) 20 mg QHS GTB Last administered on 02/14/17 22 :04; Admin Dose 20 MG; Start 02/14/17 at 21:00 Bisacodyl (Dulcolax Supp) 10 mg Q24H PRN [place] CONSTIPATION; Start 02/14/17 at 15 :30 Docusate Sodium (Colace) 100 mg QHS PO ; Start 02/14/17 at 21:00 Lorazepam (Ativan) 0.5 mg Q6 PRN GTB ANXIETY; Start 02/14/17 at 15:30 Famotidine 20 mg 20 mg BID IV Last administered on 02/15/17 08:51; Admin Dose 20 MG; Start 02/14/17 at 21:00 Cefepime HCl (Maxipime 1gm/50 ml (Pmx)) 50 ml @ 100 mls/hr Q12 IVPB Last administered on 02/15/17 08:51; Admin Dose 100 MLS/HR; Start 02/14/17 at 21: 00 Ondansetron HCl (Zofran Inj) 4 mg Q6H PRN IV NAUSEA AND/OR VOMITING Last administered on 02/15/17 03:06; Admin Dose 4 MG; Start 02/14/17 at 15:30 Chlorhexidine Gluconate (Peridex) 15 ml Q12 MM Last administered on 02/15/17 08:50; Admin Dose 15 ML; Start 02/14/17 at 22:00 Ondansetron HCl (Zofran Inj) 4 mg Q6H PRN IV NAUSEA AND/OR VOMITING; Start at 01:30 Triamcinolone Acetonide (Kenalog 0.025% Oint) 1 applic BID TOP Last administered on 02/15/17 08:51; Admin Dose 1 APPLIC; Start 02/15/17 at 01:30 ; Stop 02/17/17 at 08:00 Acetaminophen (Tylenol Liquid) 650 mg Q6H PRN GTB PAIN AND OR ELEVATED TEMP; Start 02/15/17 at 01:30 Diphenhydramine/ Zinc Oxide (Benadryl 1% Cr) 1 applic Q6H PRN TOP itching Last administered on 02/15/17 10:26; Admin Dose 1 APPLIC; Start 02/15/17 at 02:00 Acetaminophen/ Hydrocodone Bitart ([place] (5/325)) 1 tab Q6H PRN PO SEVERE PAIN LEVEL 7-10 Last administered on 02/15/17 06:45; Admin Dose 1 TAB; Start 02/15 at 06:00 Baclofen (Lioresal) 10 mg TID PO Last administered on 02/15/17 12:53; Admin Dose 10 MG; Start 02/15/17 at 13:00 Acetaminophen/ Hydrocodone Bitart ([place] (7.5-325)) 1 tab Q6H PRN GTB PAIN Last administered on 02/15/17 12:53; Admin Dose 1 TAB; Start 02/15/17 at 12: 30 Hydroxyzine HCl (Atarax) 25 mg Q8 PRN PO ITCHING; Start 02/15/17 at 12:30 ARETHA OSUNA Feb 15, 2017 14:33
[2017-02-15] MEDS: SOD FERRIC GLUC COMPLX 125 MG in SOD CHLORIDE 0.9% 100 ML IVPB SCH (16:52)
[2017-02-15] MEDS ORDERED: MINERAL OIL 133 ML ENEMA PR PRN (17:30)
[2017-02-15] MEDS ORDERED: MAGNESIUM HYDROXIDE 30ML CUP GTB PRN (17:30)
[2017-02-15] MEDS: POTASSIUM CHLORIDE 20 MEQ POWDER FOR ORAL SOLN GTB SCH (18:20)
[2017-02-15] MEDS: PRIMIDONE 250 MG TAB GTB SCH (20:31)
[2017-02-15] MEDS: FERROUS SULFATE 60 MG/ML 5ML CUP GTB SCH (20:31)
[2017-02-15] MEDS: ATORVASTATIN 20 MG TAB GTB SCH (20:32)
[2017-02-15] MEDS: PRAMIPEXOLE 0.25 MG TAB GTB SCH (20:33)
[2017-02-15] MEDS: MONTELUKAST 10 MG TAB GTB SCH (20:33)
[2017-02-15] MEDS: DOCUSATE SODIUM 100 MG CAP PO SCH (20:34)
[2017-02-15] MEDS: BUDESONIDE (NEB) 0.5MG/2ML AMP INH SCH (21:24)
[2017-02-16] VITALS (25 sets, daily range): BP systolic 98–145; BP diastolic 54–70; PULSE 55–91; RESP 16–24
--- NOTE | 2017-02-16 03:20 | PN ---
DATE: 02/15/2017 INFECTIOUS DISEASE PROGRESS NOTE SUBJECTIVE: No acute changes overnight. The patient is awake, looks comfortable, denies pain. She is afebrile. WBC today 11.6, H and H 8.8 and 27.4, platelets 294, neutrophils 84.3. BUN 14, creat inine 0.64. MICROBIOLOGY: Blood and urine culture preliminary negative. DIAGNOSTICS: Chest x-ray from admission revealed mild airspace and interstitial disease at the lung bases consistent with pulmonary edema or basilar pneumonia. INDWELLINGS: The patient has trach, PEG, Kevin catheter. ANTIMICROBIALS: She was started on cefepime. PHYSICAL EXAMINATION: GENERAL: This is an obese, well-developed, elderly woman who is awake, in no distress. HEENT: Head atraumatic, normocephalic. Sclerae anicteric. Buccal mucosa dry. NECK: Supple. CHEST: Rise symmetrical. Breath sounds diminished to bases. HEART: S1, S2. ABDOMEN: Soft. Bowel tones present. ASSESSMENT: 1. Sepsis secondary to #2. 2. Bibasilar healthcare-associated pneumonia. 3. Chronic respiratory failure. 4. Anemia. 5. Dysphagia. 6. Obesity. PLAN: The patient is doing better on appropriate antibiotics. Pulmonary on case. Continue present care. Dictated By: DAVID BEATTY MEDICAL BILLER for LEVI STARK MD NI/NTS Conf#: [id number] DID#: [id number] CC: JEROME DUMAS MD;*EndCC*
[2017-02-16 06:41] LABS: BASOPHILS % 0.2 % (0.0-2.0); EOSINOPHILS # 0.2 10^3/ul (0.0-0.5); EOSINOPHILS % 2.4 % (0.0-7.0); HEMATOCRIT 27.9 % (37.0-47.0); HEMOGLOBIN 8.9 g/dl (12.0-16.0); LYMPHOCYTES # 0.6 10^3/ul (0.8-2.9); LYMPHOCYTES % 7.1 % (15.0-51.0); MEAN CORPUSCULAR HEMOGLOBIN 31.1 pg (29.0-33.0); MEAN CORPUSCULAR HGB CONC 31.9 g/dl (32.0-37.0); MEAN CORPUSCULAR VOLUME 97.6 fl (82.0-101.0); MONOCYTE # 0.8 10^3/ul (0.3-0.9); MONOCYTES % 9.1 % (0.0-11.0); NEUTROPHIL # 7.1 10^3/ul (1.6-7.5); NEUTROPHILS % 80.7 % (39.0-77.0); PLATELET COUNT 292 10^3/UL (140-415); RED BLOOD COUNT 2.86 10^6/ul (4.20-5.40); RED CELL DISTRIBUTION WIDTH 15.4 % (11.5-14.5); WHITE BLOOD COUNT 8.8 10^3/ul (4.8-10.8)
[2017-02-16] MEDS: LEVOTHYROXINE 25 MCG TAB GTB SCH (07:05)
[2017-02-16 07:07] LABS: CALCIUM 9.4 mg/dl (8.4-10.2); CREATININE 0.61 mg/dl (0.44-1.00)
[2017-02-16] MEDS: MULTIVITAMINS 30 ML CUP GTB SCH (08:22)
[2017-02-16] MEDS: CHLORHEXIDINE GLUCONATE 15 ML UD CUP MM SCH ×2 (08:23→21:24)
[2017-02-16] MEDS: FERROUS SULFATE 60 MG/ML 5ML CUP GTB SCH ×3 (08:23→21:24)
[2017-02-16] MEDS: CEFEPIME 1GM/50 ML (PMX) 50 ML IVPB SCH ×2 (08:23→21:23)
[2017-02-16] MEDS: ASPIRIN 81 MG TAB GTB SCH (08:23)
[2017-02-16] MEDS: LAMOTRIGINE 100 MG TAB GTB SCH (08:23)
[2017-02-16] MEDS: ASCORBIC ACID 500 MG TAB GTB SCH (08:23)
[2017-02-16] MEDS: FAMOTIDINE 20 MG INJ IV SCH ×2 (08:23→21:23)
[2017-02-16] MEDS: POTASSIUM CHLORIDE 20 MEQ POWDER FOR ORAL SOLN GTB SCH (08:23)
[2017-02-16] MEDS: APIXABAN 5 MG TABLET GTB SCH ×2 (08:24→21:24)
[2017-02-16] MEDS: BACLOFEN 10 MG TAB PO SCH ×3 (08:24→21:25)
[2017-02-16] MEDS: ALLOPURINOL 100 MG TAB GTB SCH (08:24)
[2017-02-16] MEDS: TRIAMCINOLONE ACET 0.025% 15 GM OINT TOP SCH ×2 (08:24→21:25)
--- NOTE | 2017-02-16 10:07 | PSY ---
Date/Time of Note Date/Time of Note DATE: 02/16/17 TIME: 09:59 Psychiatric Subjective Eval Consent Pt consented to telemedicine: Yes Subjective Evaluation Patient location: inpatient Chief Complaint: SENT FROM [facility] FOR ELEVATED WBC. History of present illness d/w Dr eDnt. 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 Pt has tracheostomy. Pt told MD she is deprssed. Apparently there was a mentioning of Si even tough the pt denies it. Pt was evaluated with a help of MEGHAN Pozo at bedside since the patinet has difficulties speaking due to tracheostomy. Pt says she has been 'depressed" for 3 days since she was transferred to [facility] from [facility] because she left her makeup at the SNF. She says she doesn't like it here and wants to go back to SNF. She denies SI. She also said, she has not been able to speak due to tracheostomy and it makes her angry. Denies AH ro Vh. No paranoia. Orieted to month and date, place, but does not know the name of the hospital and doesn;t know the year. Pt denies feeling hopeless or helpless; she sys she was fine until admitted 3 days ago. Howver, later she stated, she feels upset because people can't understand her and she felt like that since the tracheostomy was placed. 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 Psychiatric Objective Eval Review of Systems: Review of Systems: Not Applicable Physical Examination: Physical Examination: Not Applicable Appetite: Adequate Energy: Adequate Interest: Adequate Mental Status Examination: Appearance: Groomed Eye Contact: Good Psychomotor Activity: Normal Behavior: Cooperative Speech: Clear Mood: Depressed Though Process: Linear Thought Content: Normal Suicidal: No Homicidal: No On 72 hour hold: No Orientation: x3 Cognition: Alert Insight: Impared Judgement: Intact Laboratory Results Laboratory Tests Test 02/14/17 13:00 02/14/17 13:51 02/14/17 19:05 02/15/17 01:01 White Blood Count 22.410^3/ul Red Blood Count 3.3110^6/ul Hemoglobin 10.3g/dl Hematocrit 32.4% Mean Corpuscular Volume 97.9fl Mean Corpuscular Hemoglobin 31.1pg Mean Corpuscular Hemoglobin Concent 31.8g/dl Red Cell Distribution Width 15.5% Platelet Count 66070^3/UL Mean Platelet Volume 9.9fl Neutrophils % 88.7% Lymphocytes % 3.7% Monocytes % 6.2% Eosinophils % 0.4% Basophils % 0.1% Nucleated Red Blood Cells % 0.0/100WBC Neutrophils # 19.810^3/ul Lymphocytes # 0.810^3/ul Monocytes # 1.410^3/ul Eosinophils # 0.110^3/ul Basophils # 0.010^3/ul Nucleated Red Blood Cells # 0.010^3/ul Prothrombin Time 16.4Sec Prothrombin Time Ratio 1.3 INR International Normalized Ratio 1.30 Sodium Level 134mmol/L Potassium Level 4.8mmol/L Chloride Level 96mmol/L Carbon Dioxide Level 24mmol/L Anion Gap 19 Blood Urea Nitrogen 20mg/dl Creatinine 0.70mg/dl Glucose Level 101mg/dl Lactic Acid Level 1.4mmol/L 1.8mmol/L Calcium Level 9.0mg/dl Total Bilirubin 0.2mg/dl Direct Bilirubin 0.00mg/dl Indirect Bilirubin 0.2mg/dl Aspartate Amino Transf (AST/SGOT) 57IU/L Alanine Aminotransferase (ALT/SGPT) 63IU/L Alkaline Phosphatase 200IU/L Troponin I 0.041ng/ml 0.037ng/ml 0.045ng/ml B-Type Natriuretic Peptide 990PG/ML Total Protein 6.7g/dl Albumin 3.6g/dl Globulin 3.10g/dl Albumin/Globulin Ratio 1.16 Lipase 62U/L Urine Color YELLOW Urine Clarity CLEAR Urine pH 6.0 Urine Specific Whitney 1.012 Urine Ketones NEGATIVEmg/dL Urine Nitrite NEGATIVEmg/dL Urine Bilirubin NEGATIVEmg/dL Urine Urobilinogen NEGATIVEmg/dL Urine Leukocyte Esterase NEGATIVELeu/ul Urine Microscopic RBC 6/HPF Urine Microscopic WBC 1/HPF Urine Hemoglobin 1+mg/dL Urine Glucose NEGATIVEmg/dL Urine Total Protein NEGATIVEmg/dl Phosphorus Level 3.4mg/dl Magnesium Level 2.0mg/dl Creatine Kinase 45IU/L 31IU/L Creatine Kinase Index 2.3 3.7 Creatinine Kinase MB (Mass) 1.05ng/ml 1.15ng/ml Test 02/15/17 07:59 02/16/17 06:02 White Blood Count 11.610^3/ul 8.810^3/ul Red Blood Count 2.8510^6/ul 2.8610^6/ul Hemoglobin 8.8g/dl 8.9g/dl Hematocrit 27.4% 27.9% Mean Corpuscular Volume 96.1fl 97.6fl Mean Corpuscular Hemoglobin 30.9pg 31.1pg Mean Corpuscular Hemoglobin Concent 32.1g/dl 31.9g/dl Red Cell Distribution Width 15.4% 15.4% Platelet Count 00179^3/UL 57270^3/UL Mean Platelet Volume 9.9fl 10.0fl Neutrophils % 84.3% 80.7% Lymphocytes % 6.0% 7.1% Monocytes % 7.4% 9.1% Eosinophils % 1.6% 2.4% Basophils % 0.3% 0.2% Nucleated Red Blood Cells % 0.0/100WBC 0.0/100WBC Neutrophils # 9.810^3/ul 7.110^3/ul Lymphocytes # 0.710^3/ul 0.610^3/ul Monocytes # 0.910^3/ul 0.810^3/ul Eosinophils # 0.210^3/ul 0.210^3/ul Basophils # 0.010^3/ul 0.010^3/ul Nucleated Red Blood Cells # 0.010^3/ul 0.010^3/ul Sodium Level 136mmol/L 140mmol/L Potassium Level 3.8mmol/L 4.0mmol/L Chloride Level 102mmol/L 103mmol/L Carbon Dioxide Level 26mmol/L 28mmol/L Anion Gap 12 13 Blood Urea Nitrogen 14mg/dl 11mg/dl Creatinine 0.64mg/dl 0.61mg/dl Glucose Level 97mg/dl 90mg/dl Hemoglobin A1c 5.4% Calcium Level 8.9mg/dl 9.4mg/dl Iron Level < 10ug/dl Total Iron Binding Capacity 229ug/dl Percent Iron Saturation % SAT Triglycerides Level 73mg/dl Cholesterol Level 148mg/dl LDL Cholesterol, Calculated 65mg/dl HDL Cholesterol 68mg/dl Cholesterol/HDL Ratio 2.1RATIO Thyroid Stimulating Hormone (TSH) 2.840MIU/L Free Thyroxine Index 2.15ug/ml Thyroxine (T4) 5.7ug/dl Triiodothyronine (T3) Uptake 37.7% Assessment and Plan Assessment/Diagnosis Finlayson I: Adjustment disorder with depressed mood. Finlayson II: defered Finlayson III: as per record Finlayson IV: severe Finlayson V: gaf 35 Recommendation/Plan Medication Management Please consider starting on an ssri, i.e. Lexapro 5 mg poqhs or paxil 10 mg poqhs Psychotherapy defer to outpt Pt. Caregiver/Family Education n/a Follow-up/Disposition no dts, dto,gd; pt can be discharged to snf after medically cleared. ANKIT BEAN MD Feb 16, 2017 10:07
--- NOTE | 2017-02-16 10:11 | PN ---
Date/Time of Note Date/Time of Note DATE: 02/16/17 TIME: 10:08 Assessment/Plan VTE Prophylaxis VTE Prophylaxis Intervention: other (Eliquis) Lines/Catheters IV Catheter Type (from Nrs): Peripheral IV Urinary Cath still in place: Yes Reason Cath still needed: urinary retention Assessment/Plan Chief Complaint/Hosp Course S: Patient still on antibiotics, complaining of left arm rash. Had no acute events overnight, but in the last couple of hours as been having signs of possible suicidal ideation. O: VS (see below) PE: Constitutional: alert, oriented, lying in bed Head: normocephalic Eyes: PERRL Neck: other (trach to vent) Respiratory: less diminished breath sounds, mild + wheezing L>R Cardiovascular: regular rate and rhythm, No murmurs/extra sounds Gastrointestinal: bowel sounds, non-tender, other (PEG tube noted), soft Genitourinary - Female: other (motta to BS draining clear urine) Musculoskeletal: other (patient has arthritic changes in both hands) Extremities: No edema Neurological: No focal weakness Assessment/Plan: 76-year-old female who was sent from [facility] for abnormal chest x-ray and leukocytosis chronically ventilator dependent now managed as follows: 1. Acute respiratory failure superimposed on chronic respiratory failure chronically ventilator dependent via tracheostomy (original indication unclear) -Continue oxygen supplementation via mechanical ventilation, follow pulmonary recommendations -Duo nebs as needed 2. Sepsis evidenced by hypoxia, fever and leukocytosis secondary to bilateral pneumonia -WBC count slowly trending down, on antibiotic -Continue current antibiotics, follow pulmonary recommendations as well as infectious disease 3. Paroxysmal atrial fibrillation currently in sinus rhythm -Monitor heart rate, presently rate controlled, continue Eliquis as well 4. GERD -H2 brandy 5. Reported Hypothyroidism -thyroid labs are normal, continue to monitor 6. Hyperlipidemia -monitor 7. History of CHF -continue current meds 8. Anemia of chronic disease stable -for low iron levels, IV ferrous slit 9. S/p PEG tube but eats using her mouth she says -continue current feeds 10. Possible suicide ideation -evaluated by social work and now telemetry psychiatry consult -Follow-up final results of telemetry psychiatrist Problems: Exam/Review of Systems Vital Signs Vitals Vital Signs Date Time Temp Pulse Resp B/P Pulse Ox O2 Delivery O2 Flow Rate FiO2 02/16/17 08:05 62 02/16/17 07:50 16 99 30 02/16/17 07:33 98.6 127/56 02/15/17 16:22 Mechanical Ventilator Intake and Output 02/15/17 02/15/17 02/16/17 15:00 23:00 07:00 Intake Total 150 ml Output Total 300 ml Balance -150 ml Results Result Diagram: 02/16/17 0602 02/16/17 0602 Results 24 hrs Laboratory Tests Test 02/16/17 06:02 White Blood Count 8.8 # Red Blood Count 2.86 L Hemoglobin 8.9 L Hematocrit 27.9 L Mean Corpuscular Volume 97.6 Mean Corpuscular Hemoglobin 31.1 Mean Corpuscular Hemoglobin Concent 31.9 L Red Cell Distribution Width 15.4 H Platelet Count 292 Mean Platelet Volume 10.0 Neutrophils % 80.7 H Lymphocytes % 7.1 L Monocytes % 9.1 Eosinophils % 2.4 Basophils % 0.2 Nucleated Red Blood Cells % 0.0 Neutrophils # 7.1 Lymphocytes # 0.6 L Monocytes # 0.8 Eosinophils # 0.2 Basophils # 0.0 Nucleated Red Blood Cells # 0.0 Sodium Level 140 Potassium Level 4.0 Chloride Level 103 Carbon Dioxide Level 28 Anion Gap 13 Blood Urea Nitrogen 11 Creatinine 0.61 Glucose Level 90 Calcium Level 9.4 Medications Medications Current Medications Albuterol (Proventil 0.083% (Neb)) 2.5 mg Q3H PRN NEB WHEEZING AND SOB; Start 02/14/17 at 15:30 Allopurinol (Zyloprim) 100 mg DAILY GTB Last administered on 02/16/17 08:24; Admin Dose 100 MG; Start 02/15/17 at 09:00 Apixaban (Eliquis) 2.5 mg BID GTB Last administered on 02/16/17 08:24; Admin Dose 2.5 MG; Start 02/14/17 at 21:00 Atorvastatin Calcium (Lipitor) 20 mg QHS GTB Last administered on 02/15/17 20 :32; Admin Dose 20 MG; Start 02/14/17 at 21:00 Bisacodyl (Dulcolax Supp) 10 mg Q24H PRN [place] CONSTIPATION; Start 02/14/17 at 15 :30 Docusate Sodium (Colace) 100 mg QHS PO Last administered on 02/15/17 20:34; Admin Dose 100 MG; Start 02/14/17 at 21:00 Lorazepam (Ativan) 0.5 mg Q6 PRN GTB ANXIETY; Start 02/14/17 at 15:30 Famotidine 20 mg 20 mg BID IV Last administered on 02/16/17 08:23; Admin Dose 20 MG; Start 02/14/17 at 21:00 Cefepime HCl (Maxipime 1gm/50 ml (Pmx)) 50 ml @ 100 mls/hr Q12 IVPB Last administered on 02/16/17 08:23; Admin Dose 100 MLS/HR; Start 02/14/17 at 21: 00 Chlorhexidine Gluconate (Peridex) 15 ml Q12 MM Last administered on 02/16/17 08:23; Admin Dose 15 ML; Start 02/14/17 at 22:00 Ondansetron HCl (Zofran Inj) 4 mg Q6H PRN IV NAUSEA AND/OR VOMITING; Start at 01:30 Triamcinolone Acetonide (Kenalog 0.025% Oint) 1 applic BID TOP Last administered on 02/16/17 08:24; Admin Dose 1 APPLIC; Start 02/15/17 at 01:30 ; Stop 02/17/17 at 08:00 Diphenhydramine/ Zinc Oxide (Benadryl 1% Cr) 1 applic Q6H PRN TOP itching Last administered on 02/15/17 10:26; Admin Dose 1 APPLIC; Start 02/15/17 at 02:00 Acetaminophen/ Hydrocodone Bitart ([place] (5/325)) 1 tab Q6H PRN PO SEVERE PAIN LEVEL 7-10 Last administered on 02/15/17 06:45; Admin Dose 1 TAB; Start 02/15 at 06:00 Baclofen (Lioresal) 10 mg TID PO Last administered on 02/16/17 08:24; Admin Dose 10 MG; Start 02/15/17 at 13:00 Acetaminophen/ Hydrocodone Bitart ([place] (7.5-325)) 1 tab Q6H PRN GTB PAIN Last administered on 02/15/17 20:34; Admin Dose 1 TAB; Start 02/15/17 at 12: 30 Hydroxyzine HCl 25 mg 25 mg Q8 PRN PO ITCHING; Start 02/15/17 at 12:30 Ferric Sodium Gluconate Complex/ Sodium Chloride (Ferrlecit/NS) 110 ml @ 100 mls/hr Q24H IVPB Last administered on 02/15/17 16:52; Admin Dose 100 MLS/HR; Start 02/15/17 at 16:00; Stop 02/17/17 at 17:05 Acetaminophen (Tylenol Liquid) 650 mg Q6H PRN GTB PAIN AND OR ELEVATED TEMP; Start 02/15/17 at 17:30 Ascorbic Acid (Vitamin C) 500 mg DAILY GTB Last administered on 02/16/17 08: 23; Admin Dose 500 MG; Start 02/16/17 at 09:00 Aspirin (Aspirin) 81 mg DAILY GTB Last administered on 02/16/17 08:23; Admin Dose 81 MG; Start 02/16/17 at 09:00 Budesonide (Pulmicort (Neb)) 1 mg BID INH Last administered on 02/15/17 21:24 ; Admin Dose 1 MG; Start 02/15/17 at 21:00 Ferrous Sulfate (Feosol Liquid Cup) 300 mg TID GTB Last administered on 08:23; Admin Dose 300 MG; Start 02/15/17 at 21:00 Lamotrigine (Lamictal) 200 mg DAILY GTB Last administered on 02/16/17 08:23; Admin Dose 200 MG; Start 02/16/17 at 09:00 Magnesium Hydroxide (Milk Of Mag) 30 ml DAILY PRN GTB CONSTIPATION; Start at 17:30 Mineral Oil (Fleet Mineral Oil Enema) 133 ml DAILY PRN [place] CONSTIPATION; Start 02/15/17 at 17:30 Montelukast Sodium (Singulair) 10 mg QHS GTB Last administered on 02/15/17 20 :33; Admin Dose 10 MG; Start 02/15/17 at 21:00 Multivitamins (Multivitamin) 30 ml DAILY GTB Last administered on 02/16/17 08 :22; Admin Dose 30 ML; Start 02/16/17 at 09:00 Potassium Chloride (Potassium Chloride Pwd/Soln) 20 meq DAILY GTB Last administered on 02/16/17 08:23; Admin Dose 20 MEQ; Start 12/23/17 at 18:00 Pramipexole (Mirapex) 0.5 mg HS GTB Last administered on 02/15/17 20:33; Admin Dose 0.5 MG; Start 02/15/17 at 21:00 Primidone (Mysoline) 250 mg QHS GTB Last administered on 02/15/17 20:31; Admin Dose 250 MG; Start 02/15/17 at 21:00 ARETHA OSUNA Feb 16, 2017 10:11
[2017-02-16] MEDS: BUDESONIDE (NEB) 0.5MG/2ML AMP INH SCH ×2 (10:54→21:04)
--- NOTE | 2017-02-16 11:40 | CONS ---
Date/Time of Note Date/Time of Note DATE: 02/16/17 TIME: 11:38 Assessment/Plan Assessment/Plan Additional Assessment/Plan Ventilator setting; AC of 16, tidal volume 600, PEEP of 5, 30% FiO2. Assessment and recommendations; 1. Patient admitted with bibasilar pneumonia currently on appropriate antibiotic regimen. 2. Chronic respiratory failure. 3. Paroxysmal atrial fibrillation, patient currently in sinus rhythm. 4. History of hypothyroidism. 5. Anemia. Continue current treatment. Will obtain follow-up chest x-ray in 48 hours. I did have a detailed discussion with the patient's at bedside and answered all his questions. Consultation Date/Type/Reason Admit Date/Time Feb 14, 2017 at 14:32 Initial Consult Date 02/15/17 Type of Consultation: Pulmonary 24 HR Interval Summary Free Text/Dictation Patient's condition is stable. Complains of occasional shortness of breath. General exam; elderly woman, on ventilator via tracheostomy, awake and alert. Currently in no distress. Exam/Review of Systems Vital Signs Vitals Vital Signs Date Time Temp Pulse Resp B/P Pulse Ox O2 Delivery O2 Flow Rate FiO2 02/16/17 11:24 98.0 64 16 108/55 99 02/16/17 10:56 30 02/15/17 16:22 Mechanical Ventilator Intake and Output 02/15/17 02/15/17 02/16/17 15:00 23:00 07:00 Intake Total 150 ml Output Total 300 ml Balance -150 ml Exam HEENT exam; supple neck, no JVD. No lymphadenopathy. Midline trachea. No thyromegaly. Tracheostomy in place. Patient is edentulous and wears dentures. Chest exam; diminished but clear breath sounds. S1-S2 audible, no murmurs. Regular rhythm. Abdomen exam; soft, nondistended. Nontender. No organomegaly. G-tube in place. Bowel sounds audible. Extremity exam; no edema. 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 Results Result Diagram: 02/16/17 0602 02/16/17 0602 Results 24 hrs Laboratory Tests Test 02/16/17 06:02 White Blood Count 8.8 # Red Blood Count 2.86 L Hemoglobin 8.9 L Hematocrit 27.9 L Mean Corpuscular Volume 97.6 Mean Corpuscular Hemoglobin 31.1 Mean Corpuscular Hemoglobin Concent 31.9 L Red Cell Distribution Width 15.4 H Platelet Count 292 Mean Platelet Volume 10.0 Neutrophils % 80.7 H Lymphocytes % 7.1 L Monocytes % 9.1 Eosinophils % 2.4 Basophils % 0.2 Nucleated Red Blood Cells % 0.0 Neutrophils # 7.1 Lymphocytes # 0.6 L Monocytes # 0.8 Eosinophils # 0.2 Basophils # 0.0 Nucleated Red Blood Cells # 0.0 Sodium Level 140 Potassium Level 4.0 Chloride Level 103 Carbon Dioxide Level 28 Anion Gap 13 Blood Urea Nitrogen 11 Creatinine 0.61 Glucose Level 90 Calcium Level 9.4 Medications Medications Current Medications Albuterol (Proventil 0.083% (Neb)) 2.5 mg Q3H PRN NEB WHEEZING AND SOB; Start 02/14/17 at 15:30 Allopurinol (Zyloprim) 100 mg DAILY GTB Last administered on 02/16/17 08:24; Admin Dose 100 MG; Start 02/15/17 at 09:00 Apixaban (Eliquis) 2.5 mg BID GTB Last administered on 02/16/17 08:24; Admin Dose 2.5 MG; Start 02/14/17 at 21:00 Atorvastatin Calcium (Lipitor) 20 mg QHS GTB Last administered on 02/15/17 20 :32; Admin Dose 20 MG; Start 02/14/17 at 21:00 Bisacodyl (Dulcolax Supp) 10 mg Q24H PRN [place] CONSTIPATION; Start 02/14/17 at 15 :30 Docusate Sodium (Colace) 100 mg QHS PO Last administered on 02/15/17 20:34; Admin Dose 100 MG; Start 02/14/17 at 21:00 Lorazepam (Ativan) 0.5 mg Q6 PRN GTB ANXIETY; Start 02/14/17 at 15:30 Famotidine 20 mg 20 mg BID IV Last administered on 02/16/17 08:23; Admin Dose 20 MG; Start 02/14/17 at 21:00 Cefepime HCl (Maxipime 1gm/50 ml (Pmx)) 50 ml @ 100 mls/hr Q12 IVPB Last administered on 02/16/17 08:23; Admin Dose 100 MLS/HR; Start 02/14/17 at 21: 00 Chlorhexidine Gluconate (Peridex) 15 ml Q12 MM Last administered on 02/16/17 08:23; Admin Dose 15 ML; Start 02/14/17 at 22:00 Ondansetron HCl (Zofran Inj) 4 mg Q6H PRN IV NAUSEA AND/OR VOMITING; Start at 01:30 Triamcinolone Acetonide (Kenalog 0.025% Oint) 1 applic BID TOP Last administered on 02/16/17 08:24; Admin Dose 1 APPLIC; Start 02/15/17 at 01:30 ; Stop 02/17/17 at 08:00 Diphenhydramine/ Zinc Oxide (Benadryl 1% Cr) 1 applic Q6H PRN TOP itching Last administered on 02/15/17 10:26; Admin Dose 1 APPLIC; Start 02/15/17 at 02:00 Acetaminophen/ Hydrocodone Bitart ([place] (5/325)) 1 tab Q6H PRN PO SEVERE PAIN LEVEL 7-10 Last administered on 02/15/17 06:45; Admin Dose 1 TAB; Start 02/15 at 06:00 Baclofen (Lioresal) 10 mg TID PO Last administered on 02/16/17 08:24; Admin Dose 10 MG; Start 02/15/17 at 13:00 Acetaminophen/ Hydrocodone Bitart ([place] (7.5-325)) 1 tab Q6H PRN GTB PAIN Last administered on 02/15/17 20:34; Admin Dose 1 TAB; Start 02/15/17 at 12: 30 Hydroxyzine HCl 25 mg 25 mg Q8 PRN PO ITCHING; Start 02/15/17 at 12:30 Ferric Sodium Gluconate Complex/ Sodium Chloride (Ferrlecit/NS) 110 ml @ 100 mls/hr Q24H IVPB Last administered on 02/15/17 16:52; Admin Dose 100 MLS/HR; Start 02/15/17 at 16:00; Stop 02/17/17 at 17:05 Acetaminophen (Tylenol Liquid) 650 mg Q6H PRN GTB PAIN AND OR ELEVATED TEMP; Start 02/15/17 at 17:30 Ascorbic Acid (Vitamin C) 500 mg DAILY GTB Last administered on 02/16/17 08: 23; Admin Dose 500 MG; Start 02/16/17 at 09:00 Aspirin (Aspirin) 81 mg DAILY GTB Last administered on 02/16/17 08:23; Admin Dose 81 MG; Start 02/16/17 at 09:00 Budesonide (Pulmicort (Neb)) 1 mg BID INH Last administered on 02/16/17 10:54 ; Admin Dose 1 MG; Start 02/15/17 at 21:00 Ferrous Sulfate (Feosol Liquid Cup) 300 mg TID GTB Last administered on 08:23; Admin Dose 300 MG; Start 02/15/17 at 21:00 Lamotrigine (Lamictal) 200 mg DAILY GTB Last administered on 02/16/17 08:23; Admin Dose 200 MG; Start 02/16/17 at 09:00 Magnesium Hydroxide (Milk Of Mag) 30 ml DAILY PRN GTB CONSTIPATION; Start at 17:30 Mineral Oil (Fleet Mineral Oil Enema) 133 ml DAILY PRN [place] CONSTIPATION; Start 02/15/17 at 17:30 Montelukast Sodium (Singulair) 10 mg QHS GTB Last administered on 02/15/17 20 :33; Admin Dose 10 MG; Start 02/15/17 at 21:00 Multivitamins (Multivitamin) 30 ml DAILY GTB Last administered on 02/16/17 08 :22; Admin Dose 30 ML; Start 02/16/17 at 09:00 Potassium Chloride (Potassium Chloride Pwd/Soln) 20 meq DAILY GTB Last administered on 02/16/17 08:23; Admin Dose 20 MEQ; Start 02/15/17 at 18:00 Pramipexole (Mirapex) 0.5 mg HS GTB Last administered on 02/15/17 20:33; Admin Dose 0.5 MG; Start 02/15/17 at 21:00 Primidone (Mysoline) 250 mg QHS GTB Last administered on 02/15/17 20:31; Admin Dose 250 MG; Start 02/15/17 at 21:00 EDSON SOLORIO Feb 16, 2017 11:40
[2017-02-16] MEDS: SOD FERRIC GLUC COMPLX 125 MG in SOD CHLORIDE 0.9% 100 ML IVPB SCH (15:41)
[2017-02-16] MEDS: ESCITALOPRAM 10 MG TAB PO SCH (17:40)
--- NOTE | 2017-02-16 18:11 | CONS ---
Date/Time of Note Date/Time of Note DATE: 02/16/17 TIME: 18:09 Assessment/Plan Assessment/Plan Chief Complaint/Hosp Course SUBJECTIVE: No acute changes overnight. The patient is alert, feels ok, no fevers MICROBIOLOGY: Blood and urine culture negative. DIAGNOSTICS: Chest x-ray from admission revealed mild airspace and interstitial disease at the lung bases consistent with pulmonary edema or basilar pneumonia. INDWELLINGS: The patient has trach, PEG, Kevin catheter. ANTIMICROBIALS: Cefepime. PHYSICAL EXAMINATION: GENERAL: This is an obese, well-developed, elderly woman who is awake, in no distress. HEENT: Head atraumatic, normocephalic. Sclerae anicteric. Buccal mucosa dry. NECK: Supple. CHEST: Rise symmetrical. Breath sounds diminished to bases. HEART: S1, S2. ABDOMEN: Soft. Bowel tones present. ASSESSMENT: 1. Sepsis secondary to #2. 2. Bibasilar healthcare-associated pneumonia. 3. Chronic respiratory failure. 4. Anemia. 5. Dysphagia. 6. Obesity. PLAN: The patient is doing better, continue antibiotics. DW staff Problems: Consultation Date/Type/Reason Admit Date/Time Feb 14, 2017 at 14:32 Initial Consult Date 02/15/17 Type of Consultation: ID Exam/Review of Systems Vital Signs Vitals Vital Signs Date Time Temp Pulse Resp B/P Pulse Ox O2 Delivery O2 Flow Rate FiO2 02/16/17 18:06 56 24 98 30 02/16/17 15:04 98.4 145/63 02/15/17 16:22 Mechanical Ventilator Intake and Output 02/15/17 02/15/17 02/16/17 15:00 23:00 07:00 Intake Total 150 ml Output Total 300 ml Balance -150 ml Results Result Diagram: 02/16/17 0602 02/16/17 0602 Results 24 hrs Laboratory Tests Test 02/16/17 06:02 White Blood Count 8.8 # Red Blood Count 2.86 L Hemoglobin 8.9 L Hematocrit 27.9 L Mean Corpuscular Volume 97.6 Mean Corpuscular Hemoglobin 31.1 Mean Corpuscular Hemoglobin Concent 31.9 L Red Cell Distribution Width 15.4 H Platelet Count 292 Mean Platelet Volume 10.0 Neutrophils % 80.7 H Lymphocytes % 7.1 L Monocytes % 9.1 Eosinophils % 2.4 Basophils % 0.2 Nucleated Red Blood Cells % 0.0 Neutrophils # 7.1 Lymphocytes # 0.6 L Monocytes # 0.8 Eosinophils # 0.2 Basophils # 0.0 Nucleated Red Blood Cells # 0.0 Sodium Level 140 Potassium Level 4.0 Chloride Level 103 Carbon Dioxide Level 28 Anion Gap 13 Blood Urea Nitrogen 11 Creatinine 0.61 Glucose Level 90 Calcium Level 9.4 Medications Medications Current Medications Albuterol (Proventil 0.083% (Neb)) 2.5 mg Q3H PRN NEB WHEEZING AND SOB; Start 02/14/17 at 15:30 Allopurinol (Zyloprim) 100 mg DAILY GTB Last administered on 02/16/17 08:24; Admin Dose 100 MG; Start 02/15/17 at 09:00 Apixaban (Eliquis) 2.5 mg BID GTB Last administered on 02/16/17 08:24; Admin Dose 2.5 MG; Start 02/14/17 at 21:00 Atorvastatin Calcium (Lipitor) 20 mg QHS GTB Last administered on 02/15/17 20 :32; Admin Dose 20 MG; Start 02/14/17 at 21:00 Bisacodyl (Dulcolax Supp) 10 mg Q24H PRN [place] CONSTIPATION; Start 02/14/17 at 15 :30 Docusate Sodium (Colace) 100 mg QHS PO Last administered on 02/15/17 20:34; Admin Dose 100 MG; Start 02/14/17 at 21:00 Lorazepam (Ativan) 0.5 mg Q6 PRN GTB ANXIETY; Start 02/14/17 at 15:30 Famotidine 20 mg 20 mg BID IV Last administered on 02/16/17 08:23; Admin Dose 20 MG; Start 02/14/17 at 21:00 Cefepime HCl (Maxipime 1gm/50 ml (Pmx)) 50 ml @ 100 mls/hr Q12 IVPB Last administered on 02/16/17 08:23; Admin Dose 100 MLS/HR; Start 02/14/17 at 21: 00 Chlorhexidine Gluconate (Peridex) 15 ml Q12 MM Last administered on 02/16/17 08:23; Admin Dose 15 ML; Start 02/14/17 at 22:00 Ondansetron HCl (Zofran Inj) 4 mg Q6H PRN IV NAUSEA AND/OR VOMITING; Start at 01:30 Triamcinolone Acetonide (Kenalog 0.025% Oint) 1 applic BID TOP Last administered on 02/16/17 08:24; Admin Dose 1 APPLIC; Start 02/15/17 at 01:30 ; Stop 02/17/17 at 08:00 Diphenhydramine/ Zinc Oxide (Benadryl 1% Cr) 1 applic Q6H PRN TOP itching Last administered on 02/15/17 10:26; Admin Dose 1 APPLIC; Start 02/15/17 at 02:00 Acetaminophen/ Hydrocodone Bitart ([place] (5/325)) 1 tab Q6H PRN PO SEVERE PAIN LEVEL 7-10 Last administered on 02/15/17 06:45; Admin Dose 1 TAB; Start 02/15 at 06:00 Baclofen (Lioresal) 10 mg TID PO Last administered on 02/16/17 12:45; Admin Dose 10 MG; Start 02/15/17 at 13:00 Acetaminophen/ Hydrocodone Bitart ([place] (7.5-325)) 1 tab Q6H PRN GTB PAIN Last administered on 02/15/17 20:34; Admin Dose 1 TAB; Start 02/15/17 at 12: 30 Hydroxyzine HCl 25 mg 25 mg Q8 PRN PO ITCHING; Start 02/15/17 at 12:30 Ferric Sodium Gluconate Complex/ Sodium Chloride (Ferrlecit/NS) 110 ml @ 100 mls/hr Q24H IVPB Last administered on 02/16/17 15:41; Admin Dose 100 MLS/HR; Start 02/15/17 at 16:00; Stop 02/17/17 at 17:05 Acetaminophen (Tylenol Liquid) 650 mg Q6H PRN GTB PAIN AND OR ELEVATED TEMP; Start 02/15/17 at 17:30 Ascorbic Acid (Vitamin C) 500 mg DAILY GTB Last administered on 02/16/17 08: 23; Admin Dose 500 MG; Start 02/16/17 at 09:00 Aspirin (Aspirin) 81 mg DAILY GTB Last administered on 02/16/17 08:23; Admin Dose 81 MG; Start 02/16/17 at 09:00 Budesonide (Pulmicort (Neb)) 1 mg BID INH Last administered on 02/16/17 10:54 ; Admin Dose 1 MG; Start 02/15/17 at 21:00 Ferrous Sulfate (Feosol Liquid Cup) 300 mg TID GTB Last administered on 12:45; Admin Dose 300 MG; Start 02/15/17 at 21:00 Lamotrigine (Lamictal) 200 mg DAILY GTB Last administered on 02/16/17 08:23; Admin Dose 200 MG; Start 02/16/17 at 09:00 Magnesium Hydroxide (Milk Of Mag) 30 ml DAILY PRN GTB CONSTIPATION; Start at 17:30 Mineral Oil (Fleet Mineral Oil Enema) 133 ml DAILY PRN [place] CONSTIPATION; Start 02/15/17 at 17:30 Montelukast Sodium (Singulair) 10 mg QHS GTB Last administered on 02/15/17 20 :33; Admin Dose 10 MG; Start 02/15/17 at 21:00 Multivitamins (Multivitamin) 30 ml DAILY GTB Last administered on 02/16/17 08 :22; Admin Dose 30 ML; Start 02/16/17 at 09:00 Potassium Chloride (Potassium Chloride Pwd/Soln) 20 meq DAILY GTB Last administered on 02/16/17 08:23; Admin Dose 20 MEQ; Start 02/15/17 at 18:00 Pramipexole (Mirapex) 0.5 mg HS GTB Last administered on 02/15/17 20:33; Admin Dose 0.5 MG; Start 02/15/17 at 21:00 Primidone (Mysoline) 250 mg QHS GTB Last administered on 02/15/17 20:31; Admin Dose 250 MG; Start 02/15/17 at 21:00 Escitalopram Oxalate (Lexapro) 5 mg DAILY@17 PO Last administered on 17:40; Admin Dose 5 MG; Start 02/16/17 at 17:00 DAVID BEATTY NP Feb 16, 2017 18:11
[2017-02-16] MEDS: HYDROCODONE/APAP (5/325) TAB PO PRN (18:31)
[2017-02-16] MEDS: PRAMIPEXOLE 0.25 MG TAB GTB SCH (21:24)
[2017-02-16] MEDS: ATORVASTATIN 20 MG TAB GTB SCH (21:24)
[2017-02-16] MEDS: PRIMIDONE 250 MG TAB GTB SCH (21:25)
[2017-02-16] MEDS: DOCUSATE SODIUM 100 MG CAP PO SCH (21:25)
[2017-02-16] MEDS: MONTELUKAST 10 MG TAB GTB SCH (21:25)
[2017-02-17] VITALS (22 sets, daily range): BP systolic 108–137; BP diastolic 58–71; PULSE 59–97; RESP 16–20
[2017-02-17] MEDS: LEVOTHYROXINE 25 MCG TAB GTB SCH (07:23)
[2017-02-17] MEDS: BUDESONIDE (NEB) 0.5MG/2ML AMP INH SCH (08:41)
[2017-02-17] MEDS: MULTIVITAMINS 30 ML CUP GTB SCH (08:57)
[2017-02-17] MEDS: POTASSIUM CHLORIDE 20 MEQ POWDER FOR ORAL SOLN GTB SCH (08:57)
[2017-02-17] MEDS: CHLORHEXIDINE GLUCONATE 15 ML UD CUP MM SCH ×2 (08:57→22:29)
[2017-02-17] MEDS: CEFEPIME 1GM/50 ML (PMX) 50 ML IVPB SCH ×2 (08:57→22:22)
[2017-02-17] MEDS: ALLOPURINOL 100 MG TAB GTB SCH (08:58)
[2017-02-17] MEDS: FERROUS SULFATE 60 MG/ML 5ML CUP GTB SCH ×3 (08:58→22:00)
[2017-02-17] MEDS: LAMOTRIGINE 100 MG TAB GTB SCH (08:58)
[2017-02-17] MEDS: DIPHENHYDRAMINE 1%/ZINC 28.3 GM CR TOP PRN (08:58)
[2017-02-17] MEDS: BACLOFEN 10 MG TAB PO SCH ×3 (09:00→22:22)
[2017-02-17] MEDS: APIXABAN 5 MG TABLET GTB SCH ×2 (09:00→22:23)
[2017-02-17] MEDS: FAMOTIDINE 20 MG TAB GTB SCH ×2 (09:00→22:33)
[2017-02-17] MEDS: ASPIRIN 81 MG TAB GTB SCH (09:00)
[2017-02-17] MEDS: ASCORBIC ACID 500 MG TAB GTB SCH (09:00)
[2017-02-17 10:23] LABS: BASOPHIL # 0.1 10^3/ul (0.0-0.1); BASOPHILS % 0.7 % (0.0-2.0); EOSINOPHILS # 0.2 10^3/ul (0.0-0.5); EOSINOPHILS % 2.1 % (0.0-7.0); HEMATOCRIT 32.8 % (37.0-47.0); HEMOGLOBIN 10.5 g/dl (12.0-16.0); LYMPHOCYTES # 0.8 10^3/ul (0.8-2.9); LYMPHOCYTES % 9.7 % (15.0-51.0); MEAN CORPUSCULAR VOLUME 96.8 fl (82.0-101.0); MEAN PLATELET VOLUME 10.2 fl (7.4-10.4); MONOCYTE # 0.8 10^3/ul (0.3-0.9); MONOCYTES % 9.9 % (0.0-11.0); NEUTROPHIL # 6.4 10^3/ul (1.6-7.5); PLATELET COUNT 364 10^3/UL (140-415); RED BLOOD COUNT 3.39 10^6/ul (4.20-5.40); WHITE BLOOD COUNT 8.3 10^3/ul (4.8-10.8)
[2017-02-17 10:53] LABS: CALCIUM 9.9 mg/dl (8.4-10.2); CREATININE 0.58 mg/dl (0.44-1.00); POTASSIUM 4.1 mmol/L (3.5-5.1)
--- NOTE | 2017-02-17 12:20 | CONS ---
Date/Time of Note Date/Time of Note DATE: 02/17/17 TIME: 12:18 Assessment/Plan Assessment/Plan Additional Assessment/Plan Ventilator setting; AC of 16, tidal volume 600, PEEP of 5, 30% FiO2. Assessment and recommendations; 1. Patient admitted with sepsis likely from pneumonia with significant clinical improvement. Patient off antibiotics now. 2. Likely interstitial lung disease. 3. Chronic respiratory failure which is ventilator dependent. 4. History of paroxysmal atrial fibrillation, patient currently in sinus rhythm. Continue current treatment. Consider discharge. Consultation Date/Type/Reason Admit Date/Time Feb 14, 2017 at 14:32 Initial Consult Date 02/15/17 Type of Consultation: Pulmonary 24 HR Interval Summary Free Text/Dictation Patient's condition is stable. Remains awake and alert. Complains of occasional shortness of breath. Denies any fever or chills. General exam; elderly woman, on ventilator via tracheostomy, currently in no distress. Awake and alert. Exam/Review of Systems Vital Signs Vitals Vital Signs Date Time Temp Pulse Resp B/P Pulse Ox O2 Delivery O2 Flow Rate FiO2 02/17/17 12:16 97.0 74 18 134/58 97 02/17/17 11:15 30 02/15/17 16:22 Mechanical Ventilator Intake and Output 02/16/17 02/16/17 02/17/17 15:00 23:00 07:00 Intake Total 460 ml 100 ml Output Total 700 ml 800 ml Balance -240 ml -700 ml Exam H ENT exam; supple neck, no JVD. No lymphadenopathy. Midline trachea. No thyromegaly. Patient is edentulous and wears dentures. Tracheostomy in place. Chest exam; diminished but clear breath sounds. S1-S2 audible, no murmurs. Regular rhythm. Abdomen exam; soft, nondistended. G-tube in place. Bowel sounds audible. Extremity exam; no edema. DIAL PRINTER exam; no focal motor deficit. Results Result Diagram: 02/17/1748 02/17/17 0948 Results 24 hrs Laboratory Tests Test 02/17/17 09:48 White Blood Count 8.3 Red Blood Count 3.39 L Hemoglobin 10.5 L Hematocrit 32.8 L Mean Corpuscular Volume 96.8 Mean Corpuscular Hemoglobin 31.0 Mean Corpuscular Hemoglobin Concent 32.0 Red Cell Distribution Width 15.0 H Platelet Count 364 # Mean Platelet Volume 10.2 Neutrophils % 77.0 Lymphocytes % 9.7 L Monocytes % 9.9 Eosinophils % 2.1 Basophils % 0.7 Nucleated Red Blood Cells % 0.0 Neutrophils # 6.4 Lymphocytes # 0.8 Monocytes # 0.8 Eosinophils # 0.2 Basophils # 0.1 Nucleated Red Blood Cells # 0.0 Sodium Level 138 Potassium Level 4.1 Chloride Level 101 Carbon Dioxide Level 26 Anion Gap 15 Blood Urea Nitrogen 8 Creatinine 0.58 Glucose Level 147 # Calcium Level 9.9 Medications Medications Current Medications Albuterol (Proventil 0.083% (Neb)) 2.5 mg Q3H PRN NEB WHEEZING AND SOB; Start 02/14/17 at 15:30 Allopurinol (Zyloprim) 100 mg DAILY GTB Last administered on 02/17/17 08:58; Admin Dose 100 MG; Start 02/15/17 at 09:00 Apixaban (Eliquis) 2.5 mg BID GTB Last administered on 02/17/17 09:00; Admin Dose 2.5 MG; Start 02/14/17 at 21:00 Atorvastatin Calcium (Lipitor) 20 mg QHS GTB Last administered on 02/16/17 21 :24; Admin Dose 20 MG; Start 02/14/17 at 21:00 Bisacodyl (Dulcolax Supp) 10 mg Q24H PRN [place] CONSTIPATION; Start 02/14/17 at 15 :30 Docusate Sodium (Colace) 100 mg QHS PO Last administered on 02/16/17 21:25; Admin Dose 100 MG; Start 02/14/17 at 21:00 Lorazepam (Ativan) 0.5 mg Q6 PRN GTB ANXIETY; Start 02/14/17 at 15:30 Chlorhexidine Gluconate (Peridex) 15 ml Q12 MM Last administered on 02/17/17 08:57; Admin Dose 15 ML; Start 02/14/17 at 22:00 Ondansetron HCl (Zofran Inj) 4 mg Q6H PRN IV NAUSEA AND/OR VOMITING; Start at 01:30 Diphenhydramine/ Zinc Oxide (Benadryl 1% Cr) 1 applic Q6H PRN TOP itching Last administered on 02/17/17 08:58; Admin Dose 1 APPLIC; Start 02/15/17 at 02:00 Acetaminophen/ Hydrocodone Bitart ([place] (5/325)) 1 tab Q6H PRN PO SEVERE PAIN LEVEL 7-10 Last administered on 02/16/17 18:31; Admin Dose 1 TAB; Start 02/15 at 06:00 Baclofen (Lioresal) 10 mg TID PO Last administered on 02/17/17 09:00; Admin Dose 10 MG; Start 02/15/17 at 13:00 Acetaminophen/ Hydrocodone Bitart ([place] (7.5-325)) 1 tab Q6H PRN GTB PAIN Last administered on 02/15/17 20:34; Admin Dose 1 TAB; Start 02/15/17 at 12: 30 Hydroxyzine HCl 25 mg 25 mg Q8 PRN PO ITCHING; Start 02/15/17 at 12:30 Ferric Sodium Gluconate Complex/ Sodium Chloride (Ferrlecit/NS) 110 ml @ 100 mls/hr Q24H IVPB Last administered on 02/16/17 15:41; Admin Dose 100 MLS/HR; Start 02/15/17 at 16:00; Stop 02/17/17 at 17:05 Acetaminophen (Tylenol Liquid) 650 mg Q6H PRN GTB PAIN AND OR ELEVATED TEMP; Start 02/15/17 at 17:30 Ascorbic Acid (Vitamin C) 500 mg DAILY GTB Last administered on 02/17/17 09: 00; Admin Dose 500 MG; Start 02/16/17 at 09:00 Aspirin (Aspirin) 81 mg DAILY GTB Last administered on 02/17/17 09:00; Admin Dose 81 MG; Start 02/16/17 at 09:00 Budesonide (Pulmicort (Neb)) 1 mg BID INH Last administered on 02/17/17 08:41 ; Admin Dose 0.5 MG; Start 02/15/17 at 21:00 Ferrous Sulfate (Feosol Liquid Cup) 300 mg TID GTB Last administered on 08:58; Admin Dose 300 MG; Start 02/15/17 at 21:00 Lamotrigine (Lamictal) 200 mg DAILY GTB Last administered on 02/17/17 08:58; Admin Dose 200 MG; Start 02/16/17 at 09:00 Magnesium Hydroxide (Milk Of Mag) 30 ml DAILY PRN GTB CONSTIPATION; Start at 17:30 Mineral Oil (Fleet Mineral Oil Enema) 133 ml DAILY PRN [place] CONSTIPATION; Start 02/15/17 at 17:30 Montelukast Sodium (Singulair) 10 mg QHS GTB Last administered on 02/16/17 21 :25; Admin Dose 10 MG; Start 02/15/17 at 21:00 Multivitamins (Multivitamin) 30 ml DAILY GTB Last administered on 02/17/17 08 :57; Admin Dose 30 ML; Start 02/16/17 at 09:00 Potassium Chloride (Potassium Chloride Pwd/Soln) 20 meq DAILY GTB Last administered on 02/17/17 08:57; Admin Dose 20 MEQ; Start 02/15/17 at 18:00 Pramipexole (Mirapex) 0.5 mg HS GTB Last administered on 02/16/17 21:24; Admin Dose 0.5 MG; Start 02/15/17 at 21:00 Primidone (Mysoline) 250 mg QHS GTB Last administered on 02/16/17 21:25; Admin Dose 250 MG; Start 02/15/17 at 21:00 Escitalopram Oxalate (Lexapro) 5 mg DAILY@17 PO Last administered on 17:40; Admin Dose 5 MG; Start 02/16/17 at 17:00 Famotidine (Pepcid) 20 mg BID GTB Last administered on 02/17/17 09:00; Admin Dose 20 MG; Start 02/17/17 at 09:00 Nystatin (Nystatin Powder) 1 applic BID TOP ; Start 02/17/17 at 21:00 EDSON SOLORIO Feb 17, 2017 12:20
--- NOTE | 2017-02-17 15:35 | PN ---
Date/Time of Note Date/Time of Note DATE: 02/17/17 TIME: 15:32 Assessment/Plan VTE Prophylaxis VTE Prophylaxis Intervention: SCD's Lines/Catheters IV Catheter Type (from Nrsg): Peripheral IV Urinary Cath still in place: Yes Reason Cath still needed: skin wounds contaminated by urine Assessment/Plan Assessment/Plan 76 yo F with chronic respiratory failure with trach transferred from facility for sepsis, found to have pulm infiltrate concerning for VAP #VAP: cont cefepime. anticipate 7 days of therapy. -respiratory culture ordered (unclear why not done earlier) #chronic conditions including pAF, CHF, HTN, HL: cint home meds #depression: sp telepsych eval. no indication for psych hospitalization. SSRI started Pt medically stable for xfer to [facility] IV abx course ends 12. Subjective 24 Hr Interval Summary Free Text/Dictation Requesting some powder for rash under L breast Exam/Review of Systems Vital Signs Vitals Vital Signs Date Time Temp Pulse Resp B/P Pulse Ox O2 Delivery O2 Flow Rate FiO2 02/17/17 13:50 87 20 96 30 02/17/17 12:16 97.0 134/58 02/15/17 16:22 Mechanical Ventilator Intake and Output 02/16/17 02/16/17 02/17/17 15:00 23:00 07:00 Intake Total 460 ml 100 ml Output Total 700 ml 800 ml Balance -240 ml -700 ml Exam nad trach site c/d/i. able to repsond to questions appropriately coarse breath sounds +tuan under L breast no edema Results Result Diagram: 02/17/17 0948 02/17/17 0948 Results 24 hrs Laboratory Tests Test 02/17/17 09:48 White Blood Count 8.3 Red Blood Count 3.39 L Hemoglobin 10.5 L Hematocrit 32.8 L Mean Corpuscular Volume 96.8 Mean Corpuscular Hemoglobin 31.0 Mean Corpuscular Hemoglobin Concent 32.0 Red Cell Distribution Width 15.0 H Platelet Count 364 # Mean Platelet Volume 10.2 Neutrophils % 77.0 Lymphocytes % 9.7 L Monocytes % 9.9 Eosinophils % 2.1 Basophils % 0.7 Nucleated Red Blood Cells % 0.0 Neutrophils # 6.4 Lymphocytes # 0.8 Monocytes # 0.8 Eosinophils # 0.2 Basophils # 0.1 Nucleated Red Blood Cells # 0.0 Sodium Level 138 Potassium Level 4.1 Chloride Level 101 Carbon Dioxide Level 26 Anion Gap 15 Blood Urea Nitrogen 8 Creatinine 0.58 Glucose Level 147 # Calcium Level 9.9 Medications Medications Current Medications Albuterol (Proventil 0.083% (Neb)) 2.5 mg Q3H PRN NEB WHEEZING AND SOB; Start 02/14/17 at 15:30 Allopurinol (Zyloprim) 100 mg DAILY GTB Last administered on 02/17/17 08:58; Admin Dose 100 MG; Start 02/15/17 at 09:00 Apixaban (Eliquis) 2.5 mg BID GTB Last administered on 02/17/17 09:00; Admin Dose 2.5 MG; Start 02/14/17 at 21:00 Atorvastatin Calcium (Lipitor) 20 mg QHS GTB Last administered on 02/16/17 21 :24; Admin Dose 20 MG; Start 02/14/17 at 21:00 Bisacodyl (Dulcolax Supp) 10 mg Q24H PRN [place] CONSTIPATION; Start 02/14/17 at 15 :30 Docusate Sodium (Colace) 100 mg QHS PO Last administered on 02/16/17 21:25; Admin Dose 100 MG; Start 02/14/17 at 21:00 Lorazepam (Ativan) 0.5 mg Q6 PRN GTB ANXIETY; Start 02/14/17 at 15:30 Chlorhexidine Gluconate (Peridex) 15 ml Q12 MM Last administered on 02/17/17 08:57; Admin Dose 15 ML; Start 02/14/17 at 22:00 Ondansetron HCl (Zofran Inj) 4 mg Q6H PRN IV NAUSEA AND/OR VOMITING; Start at 01:30 Diphenhydramine/ Zinc Oxide (Benadryl 1% Cr) 1 applic Q6H PRN TOP itching Last administered on 02/17/17 08:58; Admin Dose 1 APPLIC; Start 02/15/17 at 02:00 Acetaminophen/ Hydrocodone Bitart ([place] (5/325)) 1 tab Q6H PRN PO SEVERE PAIN LEVEL 7-10 Last administered on 02/16/17 18:31; Admin Dose 1 TAB; Start 02/15 at 06:00 Baclofen (Lioresal) 10 mg TID PO Last administered on 02/17/17 12:36; Admin Dose 10 MG; Start 02/15/17 at 13:00 Acetaminophen/ Hydrocodone Bitart ([place] (7.5-325)) 1 tab Q6H PRN GTB PAIN Last administered on 02/15/17 20:34; Admin Dose 1 TAB; Start 02/15/17 at 12: 30 Hydroxyzine HCl 25 mg 25 mg Q8 PRN PO ITCHING; Start 02/15/17 at 12:30 Ferric Sodium Gluconate Complex/ Sodium Chloride (Ferrlecit/NS) 110 ml @ 100 mls/hr Q24H IVPB Last administered on 02/16/17 15:41; Admin Dose 100 MLS/HR; Start 02/15/17 at 16:00; Stop 02/17/17 at 17:05 Acetaminophen (Tylenol Liquid) 650 mg Q6H PRN GTB PAIN AND OR ELEVATED TEMP; Start 02/15/17 at 17:30 Ascorbic Acid (Vitamin C) 500 mg DAILY GTB Last administered on 02/17/17 09: 00; Admin Dose 500 MG; Start 02/16/17 at 09:00 Aspirin (Aspirin) 81 mg DAILY GTB Last administered on 02/17/17 09:00; Admin Dose 81 MG; Start 02/16/17 at 09:00 Budesonide (Pulmicort (Neb)) 1 mg BID INH Last administered on 02/17/17 08:41 ; Admin Dose 0.5 MG; Start 02/15/17 at 21:00 Ferrous Sulfate (Feosol Liquid Cup) 300 mg TID GTB Last administered on 12:36; Admin Dose 300 MG; Start 02/15/17 at 21:00 Lamotrigine (Lamictal) 200 mg DAILY GTB Last administered on 02/17/17 08:58; Admin Dose 200 MG; Start 02/16/17 at 09:00 Magnesium Hydroxide (Milk Of Mag) 30 ml DAILY PRN GTB CONSTIPATION; Start at 17:30 Mineral Oil (Fleet Mineral Oil Enema) 133 ml DAILY PRN [place] CONSTIPATION; Start 02/15/17 at 17:30 Montelukast Sodium (Singulair) 10 mg QHS GTB Last administered on 02/16/17 21 :25; Admin Dose 10 MG; Start 02/15/17 at 21:00 Multivitamins (Multivitamin) 30 ml DAILY GTB Last administered on 02/17/17 08 :57; Admin Dose 30 ML; Start 02/16/17 at 09:00 Potassium Chloride (Potassium Chloride Pwd/Soln) 20 meq DAILY GTB Last administered on 02/17/17 08:57; Admin Dose 20 MEQ; Start 02/15/17 at 18:00 Pramipexole (Mirapex) 0.5 mg HS GTB Last administered on 02/16/17 21:24; Admin Dose 0.5 MG; Start 02/15/17 at 21:00 Primidone (Mysoline) 250 mg QHS GTB Last administered on 02/16/17 21:25; Admin Dose 250 MG; Start 02/15/17 at 21:00 Escitalopram Oxalate (Lexapro) 5 mg DAILY@17 PO Last administered on 17:40; Admin Dose 5 MG; Start 02/16/17 at 17:00 Famotidine (Pepcid) 20 mg BID GTB Last administered on 02/17/17 09:00; Admin Dose 20 MG; Start 02/17/17 at 09:00 Nystatin (Nystatin Powder) 1 applic BID TOP ; Start 02/17/17 at 21:00 ANNABEL COLLINS MD Feb 17, 2017 15:35
[2017-02-17] MEDS: SOD FERRIC GLUC COMPLX 125 MG in SOD CHLORIDE 0.9% 100 ML IVPB SCH (15:54)
[2017-02-17] MEDS: hydrOXYzine HCL 25 MG TAB PO PRN (15:55)
[2017-02-17] MEDS: ESCITALOPRAM 10 MG TAB PO SCH (16:33)
--- NOTE | 2017-02-17 17:51 | CONS ---
Date/Time of Note Date/Time of Note DATE: 02/17/17 TIME: 17:50 Assessment/Plan Assessment/Plan Chief Complaint/Hosp Course SUBJECTIVE: No acute changes overnight. The patient is alert, feels better, no fevers MICROBIOLOGY: Blood and urine culture negative. DIAGNOSTICS: Chest x-ray from admission revealed mild airspace and interstitial disease at the lung bases consistent with pulmonary edema or basilar pneumonia. INDWELLINGS: The patient has trach, PEG, Kevin catheter. ANTIMICROBIALS: Cefepime. PHYSICAL EXAMINATION: GENERAL: This is an obese, well-developed, elderly woman who is awake, in no distress. HEENT: Head atraumatic, normocephalic. Sclerae anicteric. Buccal mucosa dry. NECK: Supple. CHEST: Rise symmetrical. Breath sounds diminished to bases. HEART: S1, S2. ABDOMEN: Soft. Bowel tones present. ASSESSMENT: 1. Sepsis secondary to #2. 2. Bibasilar healthcare-associated pneumonia. 3. Chronic respiratory failure. 4. Anemia. 5. Dysphagia. 6. Obesity. PLAN: The patient is doing better, continue antibiotics, f/u pulmonary rec-s. DW staff Problems: Consultation Date/Type/Reason Admit Date/Time Feb 14, 2017 at 14:32 Initial Consult Date 02/15/17 Type of Consultation: id Exam/Review of Systems Vital Signs Vitals Vital Signs Date Time Temp Pulse Resp B/P Pulse Ox O2 Delivery O2 Flow Rate FiO2 02/17/17 17:20 84 16 97 30 02/17/17 15:53 98.4 125/60 02/15/17 16:22 Mechanical Ventilator Intake and Output 02/16/17 02/16/17 02/17/17 15:00 23:00 07:00 Intake Total 460 ml 100 ml Output Total 700 ml 800 ml Balance -240 ml -700 ml Results Result Diagram: 02/17/1748 02/17/17 0948 Results 24 hrs Laboratory Tests Test 02/17/17 09:48 White Blood Count 8.3 Red Blood Count 3.39 L Hemoglobin 10.5 L Hematocrit 32.8 L Mean Corpuscular Volume 96.8 Mean Corpuscular Hemoglobin 31.0 Mean Corpuscular Hemoglobin Concent 32.0 Red Cell Distribution Width 15.0 H Platelet Count 364 # Mean Platelet Volume 10.2 Neutrophils % 77.0 Lymphocytes % 9.7 L Monocytes % 9.9 Eosinophils % 2.1 Basophils % 0.7 Nucleated Red Blood Cells % 0.0 Neutrophils # 6.4 Lymphocytes # 0.8 Monocytes # 0.8 Eosinophils # 0.2 Basophils # 0.1 Nucleated Red Blood Cells # 0.0 Sodium Level 138 Potassium Level 4.1 Chloride Level 101 Carbon Dioxide Level 26 Anion Gap 15 Blood Urea Nitrogen 8 Creatinine 0.58 Glucose Level 147 # Calcium Level 9.9 Medications Medications Current Medications Albuterol (Proventil 0.083% (Neb)) 2.5 mg Q3H PRN NEB WHEEZING AND SOB; Start 02/14/17 at 15:30 Allopurinol (Zyloprim) 100 mg DAILY GTB Last administered on 02/17/17 08:58; Admin Dose 100 MG; Start 02/15/17 at 09:00 Apixaban (Eliquis) 2.5 mg BID GTB Last administered on 02/17/17 09:00; Admin Dose 2.5 MG; Start 02/14/17 at 21:00 Atorvastatin Calcium (Lipitor) 20 mg QHS GTB Last administered on 02/16/17 21 :24; Admin Dose 20 MG; Start 02/14/17 at 21:00 Bisacodyl (Dulcolax Supp) 10 mg Q24H PRN [place] CONSTIPATION; Start 02/14/17 at 15 :30 Docusate Sodium (Colace) 100 mg QHS PO Last administered on 02/16/17 21:25; Admin Dose 100 MG; Start 02/14/17 at 21:00 Lorazepam (Ativan) 0.5 mg Q6 PRN GTB ANXIETY; Start 02/14/17 at 15:30 Chlorhexidine Gluconate (Peridex) 15 ml Q12 MM Last administered on 02/17/17 08:57; Admin Dose 15 ML; Start 02/14/17 at 22:00 Ondansetron HCl (Zofran Inj) 4 mg Q6H PRN IV NAUSEA AND/OR VOMITING; Start at 01:30 Diphenhydramine/ Zinc Oxide (Benadryl 1% Cr) 1 applic Q6H PRN TOP itching Last administered on 02/17/17 08:58; Admin Dose 1 APPLIC; Start 02/15/17 at 02:00 Acetaminophen/ Hydrocodone Bitart ([place] (5/325)) 1 tab Q6H PRN PO SEVERE PAIN LEVEL 7-10 Last administered on 02/16/17 18:31; Admin Dose 1 TAB; Start 02/15 at 06:00 Baclofen (Lioresal) 10 mg TID PO Last administered on 02/17/17 12:36; Admin Dose 10 MG; Start 02/15/17 at 13:00 Acetaminophen/ Hydrocodone Bitart ([place] (7.5-325)) 1 tab Q6H PRN GTB PAIN Last administered on 02/15/17 20:34; Admin Dose 1 TAB; Start 02/15/17 at 12: 30 Hydroxyzine HCl (Atarax) 25 mg Q8 PRN PO ITCHING Last administered on 15:55; Admin Dose 25 MG; Start 02/15/17 at 12:30 Acetaminophen (Tylenol Liquid) 650 mg Q6H PRN GTB PAIN AND OR ELEVATED TEMP; Start 02/15/17 at 17:30 Ascorbic Acid (Vitamin C) 500 mg DAILY GTB Last administered on 02/17/17 09: 00; Admin Dose 500 MG; Start 02/16/17 at 09:00 Aspirin (Aspirin) 81 mg DAILY GTB Last administered on 02/17/17 09:00; Admin Dose 81 MG; Start 02/16/17 at 09:00 Budesonide (Pulmicort (Neb)) 1 mg BID INH Last administered on 02/17/17 08:41 ; Admin Dose 0.5 MG; Start 02/15/17 at 21:00 Ferrous Sulfate (Feosol Liquid Cup) 300 mg TID GTB Last administered on 12:36; Admin Dose 300 MG; Start 02/15/17 at 21:00 Lamotrigine (Lamictal) 200 mg DAILY GTB Last administered on 02/17/17 08:58; Admin Dose 200 MG; Start 02/16/17 at 09:00 Magnesium Hydroxide (Milk Of Mag) 30 ml DAILY PRN GTB CONSTIPATION; Start at 17:30 Mineral Oil (Fleet Mineral Oil Enema) 133 ml DAILY PRN [place] CONSTIPATION; Start 02/15/17 at 17:30 Montelukast Sodium (Singulair) 10 mg QHS GTB Last administered on 02/16/17 21 :25; Admin Dose 10 MG; Start 02/15/17 at 21:00 Multivitamins (Multivitamin) 30 ml DAILY GTB Last administered on 02/17/17 08 :57; Admin Dose 30 ML; Start 02/16/17 at 09:00 Potassium Chloride (Potassium Chloride Pwd/Soln) 20 meq DAILY GTB Last administered on 02/17/17 08:57; Admin Dose 20 MEQ; Start 02/15/17 at 18:00 Pramipexole (Mirapex) 0.5 mg HS GTB Last administered on 02/16/17 21:24; Admin Dose 0.5 MG; Start 02/15/17 at 21:00 Primidone (Mysoline) 250 mg QHS GTB Last administered on 02/16/17 21:25; Admin Dose 250 MG; Start 02/15/17 at 21:00 Escitalopram Oxalate (Lexapro) 5 mg DAILY@17 PO Last administered on 16:33; Admin Dose 5 MG; Start 02/16/17 at 17:00 Famotidine (Pepcid) 20 mg BID GTB Last administered on 02/17/17 09:00; Admin Dose 20 MG; Start 02/17/17 at 09:00 Nystatin 1 applic 1 applic BID TOP ; Start 02/17/17 at 21:00 Cefepime HCl (Maxipime 1gm/50 ml (Pmx)) 50 ml @ 100 mls/hr Q12 IVPB ; Start at 21:00 DAVID BEATTY NP Feb 17, 2017 17:51
[2017-02-17] MEDS: LORAZEPAM 0.5 MG TAB GTB PRN (18:35)
[2017-02-17] MEDS ORDERED: LORAZEPAM 2 MG INJ IV ONE (19:30)
--- NOTE | 2017-02-17 20:43 | RADRPT ---
PROCEDURE: XR Chest. CLINICAL INDICATION: Shortness of breath. TECHNIQUE: Single frontal view. COMPARISON: February 14, 2017. FINDINGS: The tracheostomy tube is in satisfactory position. There is mild air space and interstitial disease at the lung bases, unchanged. The lungs are otherwise clear. The heart size is normal. There is calcification in the aorta consistent with atherosclerosis. There is no pleural effusion. There is no pneumothorax. IMPRESSION: 1. No change from the February 14, 2017 chest radiograph. RPTAT: QQ .Yahir Land MD, MD Date Time Electronically viewed and signed by .Yahir Land MD, MD on 02/17/2017 20:43 .R/
[2017-02-17] MEDS: PRAMIPEXOLE 0.25 MG TAB GTB SCH (22:22)
[2017-02-17] MEDS: MONTELUKAST 10 MG TAB GTB SCH (22:23)
[2017-02-17] MEDS: PRIMIDONE 250 MG TAB GTB SCH (22:23)
[2017-02-17] MEDS: ATORVASTATIN 20 MG TAB GTB SCH (22:23)
[2017-02-17] MEDS: DOCUSATE SODIUM 100 MG CAP PO SCH (22:23)
[2017-02-17] MEDS: NYSTATIN 30 GM POWDER BTL TOP SCH (22:27)
[2017-02-18] VITALS (25 sets, daily range): BP systolic 98–144; BP diastolic 56–87; PULSE 40–60; RESP 16–18
[2017-02-18] MEDS: DIPHENHYDRAMINE 1%/ZINC 28.3 GM CR TOP PRN ×2 (02:16→20:55)
[2017-02-18] MEDS: LORAZEPAM 0.5 MG TAB GTB PRN ×2 (02:16→12:33)
[2017-02-18] MEDS: BUDESONIDE (NEB) 0.5MG/2ML AMP INH SCH ×4 (05:13→21:27)
[2017-02-18] MEDS: LEVOTHYROXINE 25 MCG TAB GTB SCH (07:43)
[2017-02-18] MEDS: MULTIVITAMINS 30 ML CUP GTB SCH (09:38)
[2017-02-18] MEDS: CHLORHEXIDINE GLUCONATE 15 ML UD CUP MM SCH ×2 (09:38→20:51)
[2017-02-18] MEDS: FERROUS SULFATE 60 MG/ML 5ML CUP GTB SCH ×3 (09:38→20:51)
[2017-02-18] MEDS: NYSTATIN 30 GM POWDER BTL TOP SCH ×2 (09:39→20:51)
[2017-02-18] MEDS: FAMOTIDINE 20 MG TAB GTB SCH ×2 (09:39→20:52)
[2017-02-18] MEDS: ALLOPURINOL 100 MG TAB GTB SCH (09:39)
[2017-02-18] MEDS: POTASSIUM CHLORIDE 20 MEQ POWDER FOR ORAL SOLN GTB SCH (09:39)
[2017-02-18] MEDS: CEFEPIME 1GM/50 ML (PMX) 50 ML IVPB SCH ×2 (09:39→20:54)
[2017-02-18] MEDS: ASPIRIN 81 MG TAB GTB SCH (09:39)
[2017-02-18] MEDS: ASCORBIC ACID 500 MG TAB GTB SCH (09:40)
[2017-02-18] MEDS: APIXABAN 5 MG TABLET GTB SCH ×2 (09:40→20:52)
[2017-02-18] MEDS: LAMOTRIGINE 100 MG TAB GTB SCH (09:40)
[2017-02-18] MEDS: BACLOFEN 10 MG TAB PO SCH ×3 (09:40→20:53)
--- NOTE | 2017-02-18 12:54 | CONS ---
Date/Time of Note Date/Time of Note DATE: 02/18/17 TIME: 12:52 Consult Date/Type/Reason Admit Date/Time Feb 14, 2017 at 14:32 Initial Consult Date 02/15/17 Type of Consultation: Pulmonary Subjective Anxious complaining of headache. Objective Vital Signs Date Time Temp Pulse Resp B/P Pulse Ox O2 Delivery O2 Flow Rate FiO2 02/18/17 11:48 98.7 52 16 98/56 98 02/18/17 05:10 30 02/15/17 16:22 Mechanical Ventilator Intake and Output 02/17/17 02/17/17 02/18/17 15:00 23:00 07:00 Intake Total 320 ml 400 ml Output Total 650 ml 400 ml Balance -330 ml 0 ml Exam PHYSICAL EXAMINATION GENERAL: Elderly lady comfortable at rest no acute distress VITAL SIGNS: see below. HEENT: Pupils equal, round, and reactive to light. Tracheostomy site clean and intact. CARDIAC: S1, S2, 1/6 systolic ejection murmur CHEST: Diminished air entry bilaterally. ABDOMEN: Mildly distended. Bowel sounds present no guarding or rebound EXTREMITIES: No cyanosis, clubbing edema +1 NEUROLOGIC: Generalized weakness Results/Medications Result Diagram: 02/17/1748 02/17/1748 Results 24 hrs Laboratory Tests Test 02/17/17 22:39 02/18/17 06:36 Bedside Glucose 95 Lab Scanned Report REFERENCE LAB Medications Current Medications Albuterol (Proventil 0.083% (Neb)) 2.5 mg Q3H PRN NEB WHEEZING AND SOB; Start 02/14/17 at 15:30 Allopurinol (Zyloprim) 100 mg DAILY GTB Last administered on 02/18/17 09:39; Admin Dose 100 MG; Start 02/15/17 at 09:00 Apixaban (Eliquis) 2.5 mg BID GTB Last administered on 02/18/17 09:40; Admin Dose 2.5 MG; Start 02/14/17 at 21:00 Atorvastatin Calcium (Lipitor) 20 mg QHS GTB Last administered on 02/17/17 22 :23; Admin Dose 20 MG; Start 02/14/17 at 21:00 Bisacodyl (Dulcolax Supp) 10 mg Q24H PRN [place] CONSTIPATION; Start 02/14/17 at 15 :30 Docusate Sodium (Colace) 100 mg QHS PO Last administered on 02/17/17 22:23; Admin Dose 100 MG; Start 02/14/17 at 21:00 Lorazepam (Ativan) 0.5 mg Q6 PRN GTB ANXIETY Last administered on 02/18/17 12 :33; Admin Dose 0.5 MG; Start 02/14/17 at 15:30 Chlorhexidine Gluconate (Peridex) 15 ml Q12 MM Last administered on 02/18/17 09:38; Admin Dose 15 ML; Start 02/14/17 at 22:00 Ondansetron HCl (Zofran Inj) 4 mg Q6H PRN IV NAUSEA AND/OR VOMITING; Start at 01:30 Diphenhydramine/ Zinc Oxide (Benadryl 1% Cr) 1 applic Q6H PRN TOP itching Last administered on 02/18/17 02:16; Admin Dose 1 APPLIC; Start 02/15/17 at 02:00 Acetaminophen/ Hydrocodone Bitart ([place] (5/325)) 1 tab Q6H PRN PO SEVERE PAIN LEVEL 7-10 Last administered on 02/16/17 18:31; Admin Dose 1 TAB; Start 02/15 at 06:00 Baclofen (Lioresal) 10 mg TID PO Last administered on 02/18/17 12:42; Admin Dose 10 MG; Start 02/15/17 at 13:00 Acetaminophen/ Hydrocodone Bitart ([place] (7.5-325)) 1 tab Q6H PRN GTB PAIN Last administered on 02/15/17 20:34; Admin Dose 1 TAB; Start 02/15/17 at 12: 30 Hydroxyzine HCl (Atarax) 25 mg Q8 PRN PO ITCHING Last administered on 15:55; Admin Dose 25 MG; Start 02/15/17 at 12:30 Acetaminophen (Tylenol Liquid) 650 mg Q6H PRN GTB PAIN AND OR ELEVATED TEMP; Start 02/15/17 at 17:30 Ascorbic Acid (Vitamin C) 500 mg DAILY GTB Last administered on 02/18/17 09: 40; Admin Dose 500 MG; Start 02/16/17 at 09:00 Aspirin (Aspirin) 81 mg DAILY GTB Last administered on 02/18/17 09:39; Admin Dose 81 MG; Start 02/16/17 at 09:00 Budesonide (Pulmicort (Neb)) 1 mg BID INH Last administered on 02/18/17 05:13 ; Admin Dose 1 MG; Start 02/15/17 at 21:00 Ferrous Sulfate (Feosol Liquid Cup) 300 mg TID GTB Last administered on 12:41; Admin Dose 300 MG; Start 02/15/17 at 21:00 Lamotrigine (Lamictal) 200 mg DAILY GTB Last administered on 02/18/17 09:40; Admin Dose 200 MG; Start 02/16/17 at 09:00 Magnesium Hydroxide (Milk Of Mag) 30 ml DAILY PRN GTB CONSTIPATION; Start at 17:30 Mineral Oil (Fleet Mineral Oil Enema) 133 ml DAILY PRN [place] CONSTIPATION; Start 02/15/17 at 17:30 Montelukast Sodium (Singulair) 10 mg QHS GTB Last administered on 02/17/17 22 :23; Admin Dose 10 MG; Start 02/15/17 at 21:00 Multivitamins (Multivitamin) 30 ml DAILY GTB Last administered on 02/18/17 09 :38; Admin Dose 30 ML; Start 02/16/17 at 09:00 Potassium Chloride (Potassium Chloride Pwd/Soln) 20 meq DAILY GTB Last administered on 02/18/17 09:39; Admin Dose 20 MEQ; Start 02/15/17 at 18:00 Pramipexole (Mirapex) 0.5 mg HS GTB Last administered on 02/17/17 22:22; Admin Dose 0.5 MG; Start 02/15/17 at 21:00 Primidone (Mysoline) 250 mg QHS GTB Last administered on 02/17/17 22:23; Admin Dose 250 MG; Start 02/15/17 at 21:00 Escitalopram Oxalate (Lexapro) 5 mg DAILY@17 PO Last administered on 16:33; Admin Dose 5 MG; Start 02/16/17 at 17:00 Famotidine (Pepcid) 20 mg BID GTB Last administered on 02/18/17 09:39; Admin Dose 20 MG; Start 02/17/17 at 09:00 Nystatin 1 applic 1 applic BID TOP Last administered on 02/18/17 09:39; Admin Dose 1 APPLIC; Start 02/17/17 at 21:00 Cefepime HCl (Maxipime 1gm/50 ml (Pmx)) 50 ml @ 100 mls/hr Q12 IVPB Last administered on 02/18/17 09:39; Admin Dose 100 MLS/HR; Start 02/17/17 at 21: 00 Assessment/Plan Chief Complaint/Hosp Course Assessment 1. Acute on chronic hypoxemic respiratory failure 2. Possible healthcare associated pneumonia 3. History of dysphagia, G-tube in place Plan 1. Speech therapy recommendations 2. Resume tube feeding if not for video swallow 3. Return back to snf facility Stable for transfer back to snf facility from pulmonary standpoint Problems: MARCOS LEIVA MD, [facility] Feb 18, 2017 12:54
[2017-02-18] MEDS: ESCITALOPRAM 10 MG TAB PO SCH (17:08)
--- NOTE | 2017-02-18 17:42 | PN ---
Date/Time of Note Date/Time of Note DATE: 02/18/17 TIME: 17:37 Assessment/Plan VTE Prophylaxis VTE Prophylaxis Intervention: SCD's Lines/Catheters IV Catheter Type (from Nrs): Peripheral IV Urinary Cath still in place: Yes Reason Cath still needed: other (indicate) (chronic?) Assessment/Plan Assessment/Plan 76 yo F with chronic respiratory failure with trach transferred from facility for sepsis, found to have pulm infiltrate concerning for VAP #VAP: cont cefepime. anticipate 7 days of therapy. respiratory culture in process #?dysphagia? unclear where this issue arose from. was allegedly coughing last night? ST to see #fungal infection under breast: cont topical nystatin #chronic conditions including pAF, CHF, HTN, HL: cont home meds #depression: sp telepsych eval. no indication for psych hospitalization. SSRI started Pt medically stable for xfer to LTAC IV abx course ends 12. Subjective 24 Hr Interval Summary Free Text/Dictation sleeping this AM Exam/Review of Systems Vital Signs Vitals Vital Signs Date Time Temp Pulse Resp B/P Pulse Ox O2 Delivery O2 Flow Rate FiO2 02/18/17 16:30 59 02/18/17 16:30 16 98 30 02/18/17 15:22 97.8 144/87 02/15/17 16:22 Mechanical Ventilator Intake and Output 02/17/17 02/17/17 02/18/17 15:00 23:00 07:00 Intake Total 320 ml 400 ml Output Total 650 ml 400 ml Balance -330 ml 0 ml Exam trach site c/d/i no mrg lungs clear abd soft no rashes Results Result Diagram: 02/17/1748 02/17/17 0948 Results 24 hrs Laboratory Tests Test 02/17/17 22:39 02/18/17 06:36 Bedside Glucose 95 Lab Scanned Report REFERENCE LAB Medications Medications Current Medications Albuterol (Proventil 0.083% (Neb)) 2.5 mg Q3H PRN NEB WHEEZING AND SOB; Start 02/14/17 at 15:30 Allopurinol (Zyloprim) 100 mg DAILY GTB Last administered on 02/18/17 09:39; Admin Dose 100 MG; Start 02/15/17 at 09:00 Apixaban (Eliquis) 2.5 mg BID GTB Last administered on 02/18/17 09:40; Admin Dose 2.5 MG; Start 02/14/17 at 21:00 Atorvastatin Calcium (Lipitor) 20 mg QHS GTB Last administered on 02/17/17 22 :23; Admin Dose 20 MG; Start 02/14/17 at 21:00 Bisacodyl (Dulcolax Supp) 10 mg Q24H PRN [place] CONSTIPATION; Start 02/14/17 at 15 :30 Docusate Sodium (Colace) 100 mg QHS PO Last administered on 02/17/17 22:23; Admin Dose 100 MG; Start 02/14/17 at 21:00 Lorazepam (Ativan) 0.5 mg Q6 PRN GTB ANXIETY Last administered on 02/18/17 12 :33; Admin Dose 0.5 MG; Start 02/14/17 at 15:30 Chlorhexidine Gluconate (Peridex) 15 ml Q12 MM Last administered on 02/18/17 09:38; Admin Dose 15 ML; Start 02/14/17 at 22:00 Ondansetron HCl (Zofran Inj) 4 mg Q6H PRN IV NAUSEA AND/OR VOMITING; Start at 01:30 Diphenhydramine/ Zinc Oxide (Benadryl 1% Cr) 1 applic Q6H PRN TOP itching Last administered on 02/18/17 02:16; Admin Dose 1 APPLIC; Start 02/15/17 at 02:00 Acetaminophen/ Hydrocodone Bitart ([place] (5/325)) 1 tab Q6H PRN PO SEVERE PAIN LEVEL 7-10 Last administered on 02/16/17 18:31; Admin Dose 1 TAB; Start 02/15 at 06:00 Baclofen (Lioresal) 10 mg TID PO Last administered on 02/18/17 12:42; Admin Dose 10 MG; Start 02/15/17 at 13:00 Acetaminophen/ Hydrocodone Bitart ([place] (7.5-325)) 1 tab Q6H PRN GTB PAIN Last administered on 02/15/17 20:34; Admin Dose 1 TAB; Start 02/15/17 at 12: 30 Hydroxyzine HCl (Atarax) 25 mg Q8 PRN PO ITCHING Last administered on 15:55; Admin Dose 25 MG; Start 02/15/17 at 12:30 Acetaminophen (Tylenol Liquid) 650 mg Q6H PRN GTB PAIN AND OR ELEVATED TEMP; Start 02/15/17 at 17:30 Ascorbic Acid (Vitamin C) 500 mg DAILY GTB Last administered on 02/18/17 09: 40; Admin Dose 500 MG; Start 02/16/17 at 09:00 Aspirin (Aspirin) 81 mg DAILY GTB Last administered on 02/18/17 09:39; Admin Dose 81 MG; Start 02/16/17 at 09:00 Budesonide (Pulmicort (Neb)) 1 mg BID INH Last administered on 02/18/17 13:49 ; Admin Dose 1 MG; Start 02/15/17 at 21:00 Ferrous Sulfate (Feosol Liquid Cup) 300 mg TID GTB Last administered on 12:41; Admin Dose 300 MG; Start 02/15/17 at 21:00 Lamotrigine (Lamictal) 200 mg DAILY GTB Last administered on 02/18/17 09:40; Admin Dose 200 MG; Start 02/16/17 at 09:00 Magnesium Hydroxide (Milk Of Mag) 30 ml DAILY PRN GTB CONSTIPATION; Start at 17:30 Mineral Oil (Fleet Mineral Oil Enema) 133 ml DAILY PRN [place] CONSTIPATION; Start 02/15/17 at 17:30 Montelukast Sodium (Singulair) 10 mg QHS GTB Last administered on 02/17/17 22 :23; Admin Dose 10 MG; Start 02/15/17 at 21:00 Multivitamins (Multivitamin) 30 ml DAILY GTB Last administered on 02/18/17 09 :38; Admin Dose 30 ML; Start 02/16/17 at 09:00 Potassium Chloride (Potassium Chloride Pwd/Soln) 20 meq DAILY GTB Last administered on 02/18/17 09:39; Admin Dose 20 MEQ; Start 02/15/17 at 18:00 Pramipexole (Mirapex) 0.5 mg HS GTB Last administered on 02/17/17 22:22; Admin Dose 0.5 MG; Start 02/15/17 at 21:00 Primidone (Mysoline) 250 mg QHS GTB Last administered on 02/17/17 22:23; Admin Dose 250 MG; Start 02/15/17 at 21:00 Escitalopram Oxalate (Lexapro) 5 mg DAILY@17 PO Last administered on 17:08; Admin Dose 5 MG; Start 02/16/17 at 17:00 Famotidine (Pepcid) 20 mg BID GTB Last administered on 02/18/17 09:39; Admin Dose 20 MG; Start 02/17/17 at 09:00 Nystatin 1 applic 1 applic BID TOP Last administered on 02/18/17 09:39; Admin Dose 1 APPLIC; Start 02/17/17 at 21:00 Cefepime HCl (Maxipime 1gm/50 ml (Pmx)) 50 ml @ 100 mls/hr Q12 IVPB Last administered on 02/18/17 09:39; Admin Dose 100 MLS/HR; Start 02/17/17 at 21: 00 ANNABEL COLLINS MD Feb 18, 2017 17:42
--- NOTE | 2017-02-18 19:19 | CONS ---
Date/Time of Note Date/Time of Note DATE: 02/18/17 TIME: 19:17 Assessment/Plan Assessment/Plan Chief Complaint/Hosp Course SUBJECTIVE: No acute changes, awake, looks comfortable MICROBIOLOGY: Blood and urine culture negative. DIAGNOSTICS: Chest x-ray from admission revealed mild airspace and interstitial disease at the lung bases consistent with pulmonary edema or basilar pneumonia. INDWELLINGS: The patient has trach, PEG, Kevin catheter. ANTIMICROBIALS: Cefepime. PHYSICAL EXAMINATION: GENERAL: This is an obese, well-developed, elderly woman who is awake, in no distress. HEENT: Head atraumatic, normocephalic. Sclerae anicteric. Buccal mucosa dry. NECK: Supple. CHEST: Rise symmetrical. Breath sounds diminished to bases. HEART: S1, S2. ABDOMEN: Soft. Bowel tones present. ASSESSMENT: 1. Sepsis secondary to #2. 2. Bibasilar healthcare-associated pneumonia. 3. Chronic respiratory failure. 4. Anemia. 5. Dysphagia. 6. Obesity. PLAN: The patient is doing better, continue antibiotics, f/u pulmonary rec-s. DW staff Problems: Consultation Date/Type/Reason Admit Date/Time Feb 14, 2017 at 14:32 Initial Consult Date 02/15/17 Type of Consultation: id Exam/Review of Systems Vital Signs Vitals Vital Signs Date Time Temp Pulse Resp B/P Pulse Ox O2 Delivery O2 Flow Rate FiO2 02/18/17 16:30 59 02/18/17 16:30 16 98 30 02/18/17 15:22 97.8 144/87 02/15/17 16:22 Mechanical Ventilator Intake and Output 02/17/17 02/17/17 02/18/17 15:00 23:00 07:00 Intake Total 320 ml 400 ml Output Total 650 ml 400 ml Balance -330 ml 0 ml Results Result Diagram: 02/17/1748 02/17/1748 Results 24 hrs Laboratory Tests Test 02/17/17 22:39 02/18/17 06:36 Bedside Glucose 95 Lab Scanned Report REFERENCE LAB Medications Medications Current Medications Albuterol (Proventil 0.083% (Neb)) 2.5 mg Q3H PRN NEB WHEEZING AND SOB; Start 02/14/17 at 15:30 Allopurinol (Zyloprim) 100 mg DAILY GTB Last administered on 02/18/17t 09:39; Admin Dose 100 MG; Start 02/15/17 at 09:00 Apixaban (Eliquis) 2.5 mg BID GTB Last administered on 02/18/17 09:40; Admin Dose 2.5 MG; Start 02/14/17 at 21:00 Atorvastatin Calcium (Lipitor) 20 mg QHS GTB Last administered on 02/17/17 22 :23; Admin Dose 20 MG; Start 02/14/17 at 21:00 Bisacodyl (Dulcolax Supp) 10 mg Q24H PRN [place] CONSTIPATION; Start 02/14/17 at 15 :30 Docusate Sodium (Colace) 100 mg QHS PO Last administered on 02/17/17 22:23; Admin Dose 100 MG; Start 02/14/17 at 21:00 Lorazepam (Ativan) 0.5 mg Q6 PRN GTB ANXIETY Last administered on 02/18/17 12 :33; Admin Dose 0.5 MG; Start 02/14/17 at 15:30 Chlorhexidine Gluconate (Peridex) 15 ml Q12 MM Last administered on 02/18/17 09:38; Admin Dose 15 ML; Start 02/14/17 at 22:00 Ondansetron HCl (Zofran Inj) 4 mg Q6H PRN IV NAUSEA AND/OR VOMITING; Start at 01:30 Diphenhydramine/ Zinc Oxide (Benadryl 1% Cr) 1 applic Q6H PRN TOP itching Last administered on 02/18/17 02:16; Admin Dose 1 APPLIC; Start 02/15/17 at 02:00 Acetaminophen/ Hydrocodone Bitart ([place] (5/325)) 1 tab Q6H PRN PO SEVERE PAIN LEVEL 7-10 Last administered on 02/16/17 18:31; Admin Dose 1 TAB; Start 02/15 at 06:00 Baclofen (Lioresal) 10 mg TID PO Last administered on 02/18/17 12:42; Admin Dose 10 MG; Start 02/15/17 at 13:00 Acetaminophen/ Hydrocodone Bitart ([place] (7.5-325)) 1 tab Q6H PRN GTB PAIN Last administered on 02/15/17 20:34; Admin Dose 1 TAB; Start 02/15/17 at 12: 30 Hydroxyzine HCl (Atarax) 25 mg Q8 PRN PO ITCHING Last administered on 15:55; Admin Dose 25 MG; Start 02/15/17 at 12:30 Acetaminophen (Tylenol Liquid) 650 mg Q6H PRN GTB PAIN AND OR ELEVATED TEMP; Start 02/15/17 at 17:30 Ascorbic Acid (Vitamin C) 500 mg DAILY GTB Last administered on 02/18/17 09: 40; Admin Dose 500 MG; Start 02/16/17 at 09:00 Aspirin (Aspirin) 81 mg DAILY GTB Last administered on 02/18/17 09:39; Admin Dose 81 MG; Start 02/16/17 at 09:00 Budesonide (Pulmicort (Neb)) 1 mg BID INH Last administered on 02/18/17 13:49 ; Admin Dose 1 MG; Start 02/15/17 at 21:00 Ferrous Sulfate (Feosol Liquid Cup) 300 mg TID GTB Last administered on 12:41; Admin Dose 300 MG; Start 02/15/17 at 21:00 Lamotrigine (Lamictal) 200 mg DAILY GTB Last administered on 02/18/17 09:40; Admin Dose 200 MG; Start 02/16/17 at 09:00 Magnesium Hydroxide (Milk Of Mag) 30 ml DAILY PRN GTB CONSTIPATION; Start at 17:30 Mineral Oil (Fleet Mineral Oil Enema) 133 ml DAILY PRN [place] CONSTIPATION; Start 02/15/17 at 17:30 Montelukast Sodium (Singulair) 10 mg QHS GTB Last administered on 02/17/17 22 :23; Admin Dose 10 MG; Start 02/15/17 at 21:00 Multivitamins (Multivitamin) 30 ml DAILY GTB Last administered on 02/18/17 09 :38; Admin Dose 30 ML; Start 02/16/17 at 09:00 Potassium Chloride (Potassium Chloride Pwd/Soln) 20 meq DAILY GTB Last administered on 02/18/17 09:39; Admin Dose 20 MEQ; Start 02/15/17 at 18:00 Pramipexole (Mirapex) 0.5 mg HS GTB Last administered on 02/17/17 22:22; Admin Dose 0.5 MG; Start 02/15/17 at 21:00 Primidone (Mysoline) 250 mg QHS GTB Last administered on 02/17/17 22:23; Admin Dose 250 MG; Start 02/15/17 at 21:00 Escitalopram Oxalate (Lexapro) 5 mg DAILY@17 PO Last administered on 17:08; Admin Dose 5 MG; Start 02/16/17 at 17:00 Famotidine (Pepcid) 20 mg BID GTB Last administered on 02/18/17 09:39; Admin Dose 20 MG; Start 02/17/17 at 09:00 Nystatin 1 applic 1 applic BID TOP Last administered on 02/18/17 09:39; Admin Dose 1 APPLIC; Start 02/17/17 at 21:00 Cefepime HCl (Maxipime 1gm/50 ml (Pmx)) 50 ml @ 100 mls/hr Q12 IVPB Last administered on 02/18/17 09:39; Admin Dose 100 MLS/HR; Start 02/17/17 at 21: 00; Stop 02/21/17 at 23:59 DAVID BEATTY NP Feb 18, 2017 19:19
[2017-02-18] MEDS: PRAMIPEXOLE 0.25 MG TAB GTB SCH (20:50)
[2017-02-18] MEDS: PRIMIDONE 250 MG TAB GTB SCH (20:50)
[2017-02-18] MEDS: DOCUSATE SODIUM 100 MG CAP PO SCH (20:51)
[2017-02-18] MEDS: hydrOXYzine HCL 25 MG TAB PO PRN (20:51)
[2017-02-18] MEDS: ATORVASTATIN 20 MG TAB GTB SCH (20:53)
[2017-02-18] MEDS: MONTELUKAST 10 MG TAB GTB SCH (20:53)
[2017-02-19] VITALS (18 sets, daily range): BP systolic 118–138; BP diastolic 60–65; PULSE 30–81; RESP 16–21
[2017-02-19] MEDS: HYDROCODONE/APAP (7.5/325) TAB GTB PRN (01:53)
[2017-02-19] MEDS: LEVOTHYROXINE 25 MCG TAB GTB SCH (06:13)
[2017-02-19] MEDS: hydrOXYzine HCL 25 MG TAB PO PRN ×2 (06:13→12:36)
[2017-02-19] MEDS: BUDESONIDE (NEB) 0.5MG/2ML AMP INH SCH (08:47)
[2017-02-19] MEDS: ASPIRIN 81 MG TAB GTB SCH (09:33)
[2017-02-19] MEDS: CHLORHEXIDINE GLUCONATE 15 ML UD CUP MM SCH (09:33)
[2017-02-19] MEDS: FERROUS SULFATE 60 MG/ML 5ML CUP GTB SCH ×2 (09:33→12:32)
[2017-02-19] MEDS: FAMOTIDINE 20 MG TAB GTB SCH (09:33)
[2017-02-19] MEDS: MULTIVITAMINS 30 ML CUP GTB SCH (09:33)
[2017-02-19] MEDS: POTASSIUM CHLORIDE 20 MEQ POWDER FOR ORAL SOLN GTB SCH (09:33)
[2017-02-19] MEDS: NYSTATIN 30 GM POWDER BTL TOP SCH (09:34)
[2017-02-19] MEDS: BACLOFEN 10 MG TAB PO SCH ×2 (09:34→12:32)
[2017-02-19] MEDS: LAMOTRIGINE 100 MG TAB GTB SCH (09:34)
[2017-02-19] MEDS: ALLOPURINOL 100 MG TAB GTB SCH (09:34)
[2017-02-19] MEDS: ASCORBIC ACID 500 MG TAB GTB SCH (09:34)
[2017-02-19] MEDS: APIXABAN 5 MG TABLET GTB SCH (09:34)
[2017-02-19] MEDS: CEFEPIME 1GM/50 ML (PMX) 50 ML IVPB SCH (09:35)
--- NOTE | 2017-02-19 13:12 | CONS ---
Date/Time of Note Date/Time of Note DATE: 02/19/17 TIME: 13:07 Consult Date/Type/Reason Admit Date/Time Feb 14, 2017 at 14:32 Initial Consult Date 02/15/17 Type of Consultation: Pulmonary Subjective No significant changes. Patient remained stable. Objective Vital Signs Date Time Temp Pulse Resp B/P Pulse Ox O2 Delivery O2 Flow Rate FiO2 02/19/17 11:53 99.2 92 21 124/60 98 02/19/17 10:30 30 02/15/17 16:22 Mechanical Ventilator Intake and Output 02/18/17 02/18/17 02/19/17 15:00 23:00 07:00 Intake Total 50 ml 150 ml 120 ml Output Total 450 ml 300 ml Balance 50 ml -300 ml -180 ml Exam PHYSICAL EXAMINATION GENERAL: Elderly lady comfortable at rest no acute distress VITAL SIGNS: see below. HEENT: Pupils equal, round, and reactive to light. Tracheostomy site clean and intact. CARDIAC: S1, S2, 1/6 systolic ejection murmur CHEST: Diminished air entry bilaterally. ABDOMEN: Mildly distended. Bowel sounds present no guarding or rebound EXTREMITIES: No cyanosis, clubbing edema +1 NEUROLOGIC: Generalized weakness Results/Medications Result Diagram: 02/17/1748 02/17/1748 Medications Current Medications Albuterol (Proventil 0.083% (Neb)) 2.5 mg Q3H PRN NEB WHEEZING AND SOB; Start 02/14/17 at 15:30 Allopurinol (Zyloprim) 100 mg DAILY GTB Last administered on 02/19/17 09:34; Admin Dose 100 MG; Start 02/15/17 at 09:00 Apixaban (Eliquis) 2.5 mg BID GTB Last administered on 02/19/17 09:34; Admin Dose 2.5 MG; Start 02/14/17 at 21:00 Atorvastatin Calcium (Lipitor) 20 mg QHS GTB Last administered on 02/18/17 20 :53; Admin Dose 20 MG; Start 02/14/17 at 21:00 Bisacodyl (Dulcolax Supp) 10 mg Q24H PRN [place] CONSTIPATION; Start 02/14/17 at 15 :30 Docusate Sodium (Colace) 100 mg QHS PO Last administered on 02/18/17 20:51; Admin Dose 100 MG; Start 02/14/17 at 21:00 Lorazepam (Ativan) 0.5 mg Q6 PRN GTB ANXIETY Last administered on 02/18/17 12 :33; Admin Dose 0.5 MG; Start 02/14/17 at 15:30 Chlorhexidine Gluconate (Peridex) 15 ml Q12 MM Last administered on 02/19/17 09:33; Admin Dose 15 ML; Start 02/14/17 at 22:00 Ondansetron HCl (Zofran Inj) 4 mg Q6H PRN IV NAUSEA AND/OR VOMITING; Start at 01:30 Diphenhydramine/ Zinc Oxide (Benadryl 1% Cr) 1 applic Q6H PRN TOP itching Last administered on 02/18/17 20:55; Admin Dose 1 APPLIC; Start 02/15/17 at 02:00 Acetaminophen/ Hydrocodone Bitart ([place] (5/325)) 1 tab Q6H PRN PO SEVERE PAIN LEVEL 7-10 Last administered on 02/16/17 18:31; Admin Dose 1 TAB; Start 02/15 at 06:00 Baclofen (Lioresal) 10 mg TID PO Last administered on 02/19/17 12:32; Admin Dose 10 MG; Start 02/15/17 at 13:00 Acetaminophen/ Hydrocodone Bitart ([place] (7.5-325)) 1 tab Q6H PRN GTB PAIN Last administered on 02/19/17 01:53; Admin Dose 1 TAB; Start 02/15/17 at 12: 30 Hydroxyzine HCl (Atarax) 25 mg Q8 PRN PO ITCHING Last administered on 12:36; Admin Dose 25 MG; Start 02/15/17 at 12:30 Acetaminophen (Tylenol Liquid) 650 mg Q6H PRN GTB PAIN AND OR ELEVATED TEMP; Start 02/15/17 at 17:30 Ascorbic Acid (Vitamin C) 500 mg DAILY GTB Last administered on 02/19/17 09: 34; Admin Dose 500 MG; Start 02/16/17 at 09:00 Aspirin (Aspirin) 81 mg DAILY GTB Last administered on 02/19/17 09:33; Admin Dose 81 MG; Start 02/16/17 at 09:00 Budesonide (Pulmicort (Neb)) 1 mg BID INH Last administered on 02/19/17 08:47 ; Admin Dose 1 MG; Start 02/15/17 at 21:00 Ferrous Sulfate (Feosol Liquid Cup) 300 mg TID GTB Last administered on 12:32; Admin Dose 300 MG; Start 02/15/17 at 21:00 Lamotrigine (Lamictal) 200 mg DAILY GTB Last administered on 02/19/17 09:34; Admin Dose 200 MG; Start 02/16/17 at 09:00 Magnesium Hydroxide (Milk Of Mag) 30 ml DAILY PRN GTB CONSTIPATION; Start at 17:30 Mineral Oil (Fleet Mineral Oil Enema) 133 ml DAILY PRN [place] CONSTIPATION; Start 02/15/17 at 17:30 Montelukast Sodium (Singulair) 10 mg QHS GTB Last administered on 02/18/17 20 :53; Admin Dose 10 MG; Start 02/15/17 at 21:00 Multivitamins (Multivitamin) 30 ml DAILY GTB Last administered on 02/19/17 09 :33; Admin Dose 30 ML; Start 02/16/17 at 09:00 Potassium Chloride (Potassium Chloride Pwd/Soln) 20 meq DAILY GTB Last administered on 02/19/17 09:33; Admin Dose 20 MEQ; Start 02/15/17 at 18:00 Pramipexole (Mirapex) 0.5 mg HS GTB Last administered on 02/18/17 20:50; Admin Dose 0.5 MG; Start 02/15/17 at 21:00 Primidone (Mysoline) 250 mg QHS GTB Last administered on 02/18/17 20:50; Admin Dose 250 MG; Start 02/15/17 at 21:00 Escitalopram Oxalate (Lexapro) 5 mg DAILY@17 PO Last administered on 17:08; Admin Dose 5 MG; Start 02/16/17 at 17:00 Famotidine (Pepcid) 20 mg BID GTB Last administered on 02/19/17 09:33; Admin Dose 20 MG; Start 02/17/17 at 09:00 Nystatin 1 applic 1 applic BID TOP Last administered on 02/19/17 09:34; Admin Dose 1 APPLIC; Start 02/17/17 at 21:00 Cefepime HCl (Maxipime 1gm/50 ml (Pmx)) 50 ml @ 100 mls/hr Q12 IVPB Last administered on 02/19/17t 09:35; Admin Dose 100 MLS/HR; Start 02/17/17 at 21: 00; Stop 02/21/17 at 23:59 Assessment/Plan Chief Complaint/Hosp Course Assessment 1. Acute on chronic hypoxemic respiratory failure 2. Possible healthcare associated pneumonia 3. History of dysphagia, G-tube in place Plan 1. Speech therapy recommendations 2. Resume tube feeding if not for video swallow 3. Return back to assisted facility Stable for transfer back to assisted facility from pulmonary standpoint Problems: MARC[facility] LE[facility] Feb 19, 2017 13:12
--- NOTE | 2017-02-19 16:57 | DS ---
Date/Time of Note Date/Time of Note DATE: 02/19/17 TIME: 16:49 Discharge Summary Admission/Discharge Info Admit Date/Time Feb 14, 2017 at 14:32 Discharge Date/Time Discharge Diagnosis sepsis from pulmonary infiltrate concerning for VAP, dysphagia, depression Patient Condition: Stable Consults ID, pulm, speech therapy, telepsychiatry Procedures CXR 02.14 IMPRESSION: 1. Tracheostomy tube. 2. Mild air space and interstitial disease at the lung bases consistent with pulmonary edema or bibasilar pneumonia. 3. Atherosclerosis. 4. Otherwise unremarkable chest radiograph. 02.14 blood culture and urine culture ng 12. tracheal aspirate with GNRs Hx of Present Illness 76-year-old female who was sent from the assisted facility where she resides because of shortness of breath abnormal chest x-ray and leukocytosis. She has a history of chronic respiratory failure on mechanical ventilator dependent via tracheostomy. The reason is unclear, and the patient does not know either. Currently she is alert and oriented and in very good spirits and denies pain. She has a PEG tube but she assures me she eats via her mouth. She is able to move all extremities, but does not walk she tells me. Because of the tracheostomy it is very hard to get a good history from her. Her speech is interrupted by episodes of coughing. There was no report of fever, abdominal pain, hematuria, hematochezia, altered mentation or passing out episodes. Hospital Course 76 yo F with chronic respiratory failure with trach transferred from facility for sepsis, found to have pulm infiltrate concerning for VAP. Pt started on a course of cefepime, to be continued at her facility. Pt noted to have a rash under her L breast consistent with topical yeast, nystatin powder was started. Pt noted to be coughing when eating. ST saw pt and advised TFs pending video swallow which could not be arranged prior to dc. Pt to f/u with ST at her facility. Pt with depression on admission, seen by psychiatry. No active SI. SSRI was started and outpatient f/u advised. Home Meds Reported Medications Ascorbic Acid* (Vitamin C*) 500 Mg Capsule.sa, 500 MG GTB DAILY, CAP 02/14/17 Cran/Vitc/Mannose/Inulin/Brom (Uti-Stat Liquid) 3,875 Mg/30 Ml Liquid, 3875 MG GTB BID 02/14/17 Acetaminophen* (Acetaminophen*) 650 Mg Tablet, 650 MG GTB Q6H Y for PAIN AND OR ELEVATED TEMP, #30 TAB 02/14/17 Budesonide* (Pulmicort*) 1 Mg/2 Ml Ampul.neb, 1 MG INHALATION BID, #60 AMP 02/14/17 Primidone* (Mysoline*) 250 Mg Tablet, 250 MG GTB QHS, TAB 02/14/17 Pramipexole* (Pramipexole*) 0.5 Mg Tablet, 0.5 MG GTB HS, TAB 02/14/17 Hydrocodone/Acetaminophen ([place] 5-325 Tablet) 1 Each Tablet, 1 EACH GTB Q8 Y for SEVERE PAIN LEVEL 7-10, TAB 02/14/17 Multivitamins* (Theragran*) 1 Tab Tab, 1 TAB GTB DAILY, TAB 02/14/17 Montelukast Sodium* (Montelukast Sodium*) 10 Mg Tablet, 10 MG GTB QHS, #30 TAB 02/14/17 Magnesium Hydroxide* (Milk Of Magnesia*) 400 Mg/5 Ml Oral.susp, 30 ML GTB DAILY Y for CONSTIPATION, ML 02/14/17 Losartan Potassium* (Losartan Potassium*) 25 Mg Tablet, 25 MG GTB DAILY, TAB 02/14/17 Levothyroxine Sodium* (Levothyroxine Sodium*) 25 Mcg Tablet, 25 MCG GTB BEFORE BREAKFAST, #30 TAB 02/14/17 Lamotrigine* (Lamotrigine*) 200 Mg Tablet, 200 MG GTB DAILY, TAB 02/14/17 Potassium Chloride* (Potassium Chloride*) 20 Meq Tablet.er, 20 MEQ GTB DAILY, TAB.SA 02/14/17 Hydralazine Hcl* (Hydralazine Hcl*) 10 Mg Tablet, 10 MG PO Q8 Y for ELEVATED BLOOD PRESSURE, #90 TAB 02/14/17 Mineral Oil* (Fleet* Mineral Oil Enema) 133 Ml Oil, 133 ML [place] DAILY Y for CONSTIPATION, ENEMA 02/14/17 Ferrous Sulfate (Ferrous Sulfate) 220 Mg/5 Ml Elixir, 330 MG GTB TID, BOTTLE 02/14/17 Bisacodyl* (Bisacodyl*) 10 Mg Supp, 10 MG NJ Q24H Y for CONSTIPATION, SUPP 02/14/17 Docusate Sodium* (Colace*) 100 Mg Capsule, 100 MG GTB QHS Y for CONSTIPATION, # 30 CAP 02/14/17 Chlorhexidine Gluconate (Peridex) 473 Ml Mouthwash, 473 ML MM Q12, BOTTLE 02/14/17 Atorvastatin Calcium* (Atorvastatin Calcium*) 20 Mg Tablet, 20 MG GTB QHS, #30 TAB 02/14/17 Lorazepam* (Ativan*) 0.5 Mg Tablet, 0.5 MG GTB Q6 Y for ANXIETY, #30 TAB 02/14/17 Aspirin* (Aspirin* Chew) 81 Mg Tab.chew, 81 MG GTB DAILY, TAB.CHEW 02/14/17 Apixaban* (Eliquis*) 2.5 Mg Tablet, 2.5 MG GTB BID, TAB 02/14/17 Allopurinol* (Allopurinol*) 100 Mg Tablet, 100 MG GTB DAILY, TAB 02/14/17 Albuterol Sulfate* (Albuterol Sulfate* Neb) 0.083%-3 Ml Neb, 2.5 MG NEB Q3H Y for WHEEZING AND SOB, #30 VIAL 02/14/17 Follow-up Plan PCP at facility speech PCP ref to mental health Primary Care Provider Care Physician No Primary Time spent on discharge: > 30 minutes ANNABEL COLLINS MD Feb 19, 2017 16:57
--- NOTE | 2017-02-19 16:58 | PDOCDIS ---
Discharge Instructions DIAGNOSIS Discharge Diagnosis sepsis from pulmonary infiltrate concerning for VAP, dysphagia, depression CONDITION Patient Condition: Stable HOME CARE INSTRUCTIONS: Special Diet: NPO, NEED VIDEO SWALOW EVAL FOLLOW UP/APPOINTMENTS Follow-up Plan ask the doctor at your facility for a referral to a mental health provider to help with your depression ANNABEL COLLINS MD Feb 19, 2017 16:58
--- NOTE | 2017-02-19 20:16 | CONS ---
Date/Time of Note Date/Time of Note DATE: 02/19/17 TIME: 20:15 Assessment/Plan Assessment/Plan Chief Complaint/Hosp Course SUBJECTIVE: Awake, looks comfortable, no fevers MICROBIOLOGY: Blood and urine culture negative, sputum cx + GNR. DIAGNOSTICS: Chest x-ray from admission revealed mild airspace and interstitial disease at the lung bases consistent with pulmonary edema or basilar pneumonia. INDWELLINGS: The patient has trach, PEG, Kevin catheter. ANTIMICROBIALS: Cefepime. PHYSICAL EXAMINATION: GENERAL: This is an obese, well-developed, elderly woman who is awake, in no distress. HEENT: Head atraumatic, normocephalic. Sclerae anicteric. Buccal mucosa dry. NECK: Supple. CHEST: Rise symmetrical. Breath sounds diminished to bases. HEART: S1, S2. ABDOMEN: Soft. Bowel tones present. ASSESSMENT: 1. Sepsis secondary to #2. 2. Bibasilar healthcare-associated pneumonia. 3. Chronic respiratory failure. 4. Anemia. 5. Dysphagia. 6. Obesity. PLAN: The patient continues to improve, continue antibiotics, f/u sputum cx [facility] staff Problems: Consultation Date/Type/Reason Admit Date/Time Feb 14, 2017 at 14:32 Initial Consult Date 02/15/17 Type of Consultation: ID Exam/Review of Systems Vital Signs Vitals Vital Signs Date Time Temp Pulse Resp B/P Pulse Ox O2 Delivery O2 Flow Rate FiO2 02/19/17 17:30 62 20 100 30 02/19/17 11:53 99.2 124/60 02/15/17 16:22 Mechanical Ventilator Intake and Output 02/18/17 02/18/17 02/19/17 15:00 23:00 07:00 Intake Total 50 ml 150 ml 120 ml Output Total 450 ml 300 ml Balance 50 ml -300 ml -180 ml Results Result Diagram: 02/17/17 0948 02/17/17 0948 DAVID BEATTY NP Feb 19, 2017 20:16
[2017-02-20] MEDS ORDERED: ESCI5TAB PO (12:38)
[2017-02-20] MEDS ORDERED: ZINC220C5 GTB (12:40)
== END 2017-02-19 19:11 | DRG 870 ==
LOC: E/R 12:35 → TEL 14:32
PROVIDERS: ADMIT Family Medicine; ATTEND Family Medicine
PROC: 5A1955Z Respiratory Ventilation, Greater than 96 Consecutive Hours (ICD-10-PCS; principal; 2017-02-15)
DX: A41.9 Sepsis, unspecified organism (principal); J96.21 Acute and chronic respiratory failure with hypoxia; J18.9 Pneumonia, unspecified organism; Z99.11 Dependence on respirator [ventilator] status; Z93.0 Tracheostomy status; D63.8 Anemia in other chronic diseases classified elsewhere; I48.0 Paroxysmal atrial fibrillation; I50.9 Heart failure, unspecified; E66.9 Obesity, unspecified; Z68.30 Body mass index [BMI] 30.0-30.9, adult; K21.9 Gastro-esophageal reflux disease without esophagitis; E03.9 Hypothyroidism, unspecified; E78.5 Hyperlipidemia, unspecified; Z93.1 Gastrostomy status; R13.10 Dysphagia, unspecified; B36.9 Superficial mycosis, unspecified; F32.9 Major depressive disorder, single episode, unspecified
CPT/HCPCS: 36415; 71010; 80048; 80053; 80061; 81001; 82550; 82553; 82962; 83036; 83540; 83605; 83690; 83735; 83880; 84100; 84436; 84443; 84479; 84484; 85025; 85610; 87040; 87070; 87081; 87086; 92526; 92610; 93005; 93306; 94002; 94003; 94640; 94664; 96365; 96375; 97163; J0456; J0692; J1940; J2405; J2916; J7030

== ENCOUNTER 2017-02-20 12:25 | Inpatient (IN) | END 2017-02-22 18:05 | DRG 208 ==

== ENCOUNTER 2018-04-11 15:14 | Inpatient (IN) | payer MEDICARE, OTHER ==
[~2018-04-11] VITALS: Ht 160 cm; Wt 84.9 kg
[~2018-04-11 15:14] MED LIST: ACET-2047 GTB; ALBU2.5V3 NEB; ALLO100T GTB; ASCO500C7 GTB; ATOR20TA38 GTB; BISA10SU75 PR; CHLO473M4 MM; CRAN3875 GTB; DOCU-144 GTB; DULO60CA6 GTB; FURO40TA4 GTB; HYDR-3670 GTB; HYDR-4011 GTB; LACTINEX PO; LAMO200T2 GTB; LEVO25TA6 PO; LORA-441 GTB; MAGN400O19 GTB; MINE133E23 PR; MONT10TA21 GTB; MULTI GTB; OMEP20CA16 GTB; PRAM0.5T GTB; PRIM250T37 GTB; SERT25TA83 GTB; SIME80TA60 GTB
[2018-04-11] MEDS ORDERED: SODIUM CHLORIDE 0.9% 1L BAG IV* STA (15:29)
[2018-04-11] MEDS ORDERED: IPRATROPIUM (NEB) 0.5 MG/2.5 ML AMP INH STA (15:33)
[2018-04-11] MEDS ORDERED: ALBUTEROL 0.5% (NEB) 2.5 MG/0.5 ML AMP INH STA (15:33)
--- NOTE | 2018-04-11 15:43 | ERD ---
ER Documentation Chief Complaint Chief Complaint Respiratory distress hypoxia HPI 77-year-old female history of hypertension, hyperlipidemia, Parkinson's disease, hypothyroidism, respiratory failure, ventilator dependent status post tracheostomy, recent admission for healthcare acquired pneumonia secondary to Pseudomonas discharged on 04/02/2018, severe sepsis, seizures, atrial fibrillation, NSTEMI, CHF, COPD, depression, dementia, encephalopathy and GERD presents to the ED via rescue ambulance for evaluation of shortness of breath and hypoxia. Patient was in her usual state of health until 30 minutes prior to arrival when she developed acute respiratory distress with tachypnea and O2 saturations dropping into the 80s. Presents to the ED with bag ventilation via tracheostomy in progress. Limited history is obtained from paramedics and review of snf facility records as patient is unable to provide any history due to clinical condition. ROS Unobtainable except as per HPI due to patient's clinical condition Medications Home Meds Reported Medications Lactobacillus Acidophilus* (Lactinex*) 1 Tab Chew, 1 TAB GTB BID, TAB 04/11/18 Famotidine* (Famotidine*) 20 Mg Tablet, 20 MG GTB DAILY, #30 TAB 04/11/18 Clopidogrel Bisulfate (Clopidogrel) 75 Mg Tablet, 75 MG GTB DAILY, #30 TAB 04/11/18 Aspirin* (Aspirin* Chew) 81 Mg Tab.chew, 81 MG PO DAILY, TAB.CHEW 04/11/18 Levothyroxine Sodium* (Levothyroxine Sodium*) 25 Mcg Tablet, 25 MCG PO BEFORE BREAKFAST, #30 TAB 03/30/18 Montelukast Sodium* (Singulair*) 10 Mg Tablet, 10 MG GTB QHS, #30 TAB 03/30/18 Simethicone* (Mylicon*) 80 Mg Tab, 80 MG GTB Q6H PRN for DISTENSION/GAS/BLOATIN G, TAB 03/30/18 Sertraline Hcl* (Sertraline Hcl*) 25 Mg Tablet, 25 MG GTB DAILY, #30 TAB 03/30/18 Omeprazole* (Omeprazole*) 20 Mg Capsule.dr, 20 MG GTB AC BREAKFAST, #30 CAP 03/30/18 Furosemide* (Furosemide*) 40 Mg Tablet, 40 MG GTB DAILY, TAB 03/30/18 Duloxetine Hcl* (Cymbalta*) 60 Mg Capsule.dr, 60 MG GTB DAILY, CAP 03/30/18 Ascorbic Acid* (Vitamin C*) 500 Mg Capsule.sa, 500 MG GTB DAILY, CAP 02/14/17 Cran/Vitc/Mannose/Inulin/Brom (Uti-Stat Liquid) 3,875 Mg/30 Ml Liquid, 3875 MG GTB BID 02/14/17 Acetaminophen* (Acetaminophen*) 650 Mg Tablet, 650 MG GTB Q4 PRN for PAIN AND OR ELEVATED TEMP, #30 TAB 02/14/17 Primidone* (Mysoline*) 250 Mg Tablet, 250 MG GTB QHS, TAB 02/14/17 Pramipexole* (Pramipexole*) 0.5 Mg Tablet, 0.5 MG GTB HS, TAB 02/14/17 Hydrocodone/Acetaminophen ([place] 5-325 Tablet) 1 Each Tablet, 1 EACH GTB Q8 PRN for SEVERE PAIN LEVEL 7-10, TAB 02/14/17 Multivitamins* (Theragran*) 1 Tab Tab, 1 TAB GTB DAILY, TAB 02/14/17 Magnesium Hydroxide* (Milk Of Magnesia*) 400 Mg/5 Ml Oral.susp, 30 ML GTB DAILY PRN for CONSTIPATION, ML 02/14/17 Lamotrigine* (Lamotrigine*) 200 Mg Tablet, 200 MG GTB DAILY, TAB 02/14/17 Hydralazine Hcl* (Hydralazine Hcl*) 10 Mg Tablet, 10 MG GTB Q8 PRN for ELEVATED BLOOD PRESSURE, #90 TAB 02/14/17 Mineral Oil* (Fleet* Mineral Oil Enema) 133 Ml Oil, 133 ML [place] DAILY PRN for CONSTIPATION, ENEMA 02/14/17 Bisacodyl* (Bisacodyl*) 10 Mg Supp, 10 MG SC Q24H PRN for CONSTIPATION, SUPP 02/14/17 Docusate Sodium* (Colace*) 100 Mg Capsule, 100 MG GTB QHS PRN for CONSTIPATION, #30 CAP 02/14/17 Chlorhexidine Gluconate (Peridex) 473 Ml Mouthwash, 473 ML MM Q12, BOTTLE 02/14/17 Atorvastatin Calcium* (Atorvastatin Calcium*) 20 Mg Tablet, 20 MG GTB QHS, #30 TAB 02/14/17 Lorazepam* (Ativan*) 0.5 Mg Tablet, 0.5 MG GTB Q6 PRN for ANXIETY, #30 TAB 02/14/17 Allopurinol* (Allopurinol*) 100 Mg Tablet, 100 MG GTB DAILY, TAB 02/14/17 Albuterol Sulfate* (Albuterol Sulfate* Neb) 0.083%-3 Ml Neb, 2.5 MG NEB Q6 PRN for WHEEZING AND SOB, #30 VIAL 02/14/17 Discontinued Reported Medications Lactobacillus Acidophilus* (Lactinex*) 1 Tab Chew, 1 TAB PO BID, TAB 03/30/18 Allergies Allergies: Coded Allergies: levofloxacin (Verified Allergy, Severe, 04/11/18) regadenoson (Verified Allergy, Severe, 04/11/18) PMhx/Soc Reviewed in chart. As per HPI. History of Surgery: Yes (LAPAROTOMY, COLONOSCOPY, TRACHEOSTOMY) Anesthesia Reaction: No Hx Neurological Disorder: Yes (ENCEPHALOPATHY, DYSPHAGIA) Hx Respiratory Disorders: Yes (COPD) Hx Cardiac Disorders: Yes (CHF, HTN, AFIB, HYPERLIPIDEMIA) Hx Psychiatric Problems: Yes (DEMENTIA) Hx Miscellaneous Medical Probl: Yes (HTN, OBESITY) Hx Alcohol Use: No Hx Substance Use: No Hx Tobacco Use: No FmHx Unobtainable due to patient's clinical condition Physical Exam Vitals Vital Signs Date Temp Pulse Resp B/P (MAP) Pulse Ox O2 O2 Flow FiO2 Time Delivery Rate 04/11/18 Bag Valve 15 16:15 Mask 04/11/18 96 19 16:07 04/11/18 100.2 15:57 04/11/18 136 27 100 100 15:45 04/11/18 97.9 115 30 156/111 100 15:19 (126) Physical Exam Const: Alert, severe respiratory distress. Chronically ill-appearing Head: Atraumatic Eyes: Normal Conjunctiva ENT: Normal External Ears, Nose and Mouth. Neck: Full range of motion. No meningismus. Tracheostomy site without erythema, induration or drainage. Resp: Tachypnea decreased breath sounds especially at the left base with diffuse rhonchi and referred upper airway sounds. Mild expiratory wheezing. Cardio: Tachycardic. Regular rate and rhythm, no murmurs Abd: Soft, obese, non tender, non distended. Normal bowel sounds Skin: No petechiae or rashes Back: No midline or flank tenderness Ext: 1+ pretibial edema. No cyanosis. Double-lumen PICC line left antecubital fossa. No erythema, induration or drainage. Neur: Awake and alert. Responsive. No facial droop. Psych: Cooperative. Anxious. Result Diagram: 04/13/18 0504/13/18 0511 Results 24 hrs Laboratory Tests Test 04/11/18 15:29 04/11/18 15:57 04/11/18 16:15 Blood Gas Specimen Source Blood arterial Arterial Blood Date Drawn 04/11/2018 4:12:04 PM Arterial Blood pH 7.316 (Temp corrected) Arterial Blood pCO2 58.7 mmhg (Temp correct) Arterial Blood pO2 67.8 mmHG (Temp corrected) Arterial Blood HCO3 29.3 mmol/L Arterial Blood Base Excess 1.8 mmol/L Arterial Blood 93.2 mmHG Oxygen Saturation [place] Test ACCEPTAB Arterial Blood Gas Right Radial Puncture Site Arterial 0.5 % Blood Carboxyhemoglobin Arterial Blood 0.3 % Methemoglobin Blood Gas A-a O2 586.5 mmHg Differential Oxyhemoglobin Percent 92.5 % Blood Gas Temperature 37.0 C Blood Gas Respiration Rate 16.0 Blood Gas Actual 25 Respiration Rate Blood Gas Modality VENT - AC FiO2 100.0 % Blood Gas Tidal Volume 500.0 mL Blood Gas Low PEEP Setting 5.0 cmH2O Blood Gas Notified Whom MDA Blood Gas Notified Time 04/11/2018 4:15:00 PM POC Venous Lactate 2.1 mmol/L White Blood Count 12.2 10^3/ul Red Blood Count 3.59 10^6/ul Hemoglobin 11.4 g/dl Hematocrit 36.2 % Mean Corpuscular Volume 100.8 fl Mean Corpuscular Hemoglobin 31.8 pg Mean Corpuscular 31.5 g/dl Hemoglobin Concent Red Cell Distribution Width 14.8 % Platelet Count 285 10^3/UL Mean Platelet Volume 9.8 fl Immature Granulocytes % 1.400 % Neutrophils % 87.1 % Lymphocytes % 5.0 % Monocytes % 5.2 % Eosinophils % 0.9 % Basophils % 0.4 % Nucleated Red Blood Cells % 0.0 /100WBC Immature Granulocytes # 0.170 10^3/ul Neutrophils # 10.7 10^3/ul Lymphocytes # 0.6 10^3/ul Monocytes # 0.6 10^3/ul Eosinophils # 0.1 10^3/ul Basophils # 0.1 10^3/ul Nucleated Red Blood Cells # 0.0 10^3/ul Prothrombin Time 12.8 Sec Prothrombin Time Ratio 1.0 INR International 0.95 Normalized Ratio Activated 24.2 Sec Partial Thromboplast Time Sodium Level 141 mmol/L Potassium Level 4.1 mmol/L Chloride Level 98 mmol/L Carbon Dioxide Level 27 mmol/L Anion Gap 16 Blood Urea Nitrogen 21 mg/dl Creatinine 0.85 mg/dl Est Glomerular Filtrat mL/min Rate mL/min Glucose Level 159 mg/dl Calcium Level 9.4 mg/dl Total Bilirubin 0.1 mg/dl Direct Bilirubin 0.00 mg/dl Indirect Bilirubin 0.1 mg/dl Aspartate Amino 35 IU/L Transf (AST/SGOT) Alanine 23 IU/L Aminotransferase (ALT/SGPT) Alkaline Phosphatase 146 IU/L Troponin I 0.020 ng/ml B-Type Natriuretic Peptide 1380 PG/ML Total Protein 7.9 g/dl Albumin 4.5 g/dl Globulin 3.40 g/dl Albumin/Globulin Ratio 1.32 Free Thyroxine 1.11 ng/dl Current Medications Medications Dose Sig/Kaykay Start Time Status Last (Trade) Ordered Route PRN Stop Time Admin Dose Reason Admin Sodium 1,640 ml BOLUS OVER 2 04/11/18 DC 04/11/18 Chloride HOURS STAT 15:29 16:20 (NS) IV* 04/11/18 15:33 Albuterol 15 mg ONCE STAT 04/11/18 DC 04/11/18 (Proventil INH 15:33 16:00 0.5% (Neb)) 04/11/18 15:35 Ipratropium 1 mg ONCE STAT 04/11/18 DC 04/11/18 [place] INH 15:33 16:00 (Atrovent 04/11/18 15:35 0.02% (Neb)) Vancomycin 250 ml @ ONCE STAT 04/11/18 DC 04/11/18 HCl 125 mls/hr IVPB 16:35 20:25 04/11/18 18:34 Ceftazidime 50 ml @ ONCE ONCE 04/11/18 DC 04/11/18 100 mls/hr IVPB 17:00 18:05 04/11/18 17:29 Tobramycin 110 ml @ ONCE ONCE 04/11/18 DC 04/11/18 400 mg/ 110 mls/hr IVPB 17:00 19:26 Sodium 04/11/18 17:59 Chloride Procedures/MDM DOCUMENTS REVIEWED: ED nurse, skilled nurse facility records, EMS report and pr ior hospital records EKG: Time: 1726. Sinus rhythm. Ventricular rate 90. Occasional PACs. Normal SC and QRS. Nonspecific T wave changes although interpretation is limited due to baseline artifact. No acute ST segment elevation or depression. My Interpretation IMAGING: PROCEDURE: XR Chest. CLINICAL INDICATION: Difficulty breathing TECHNIQUE: Single frontal view of the chest was obtained COMPARISON: 04/02/2018 FINDINGS: The tracheostomy is again seen with the tip 6.9 cm above the luna. A left-sided PICC line is again seen with the tip in the distal superior vena cava. Atherosclerotic changes are seen in the aortic arch. The cardiac silhouette is unremarkable. There has been development of an extensive left lower lobe infiltrate. A small left pleural effusion is suggested. Mild pulmonary vascular congestion is also suggested. The right pleural space is clear. The bones and soft tissue show no acute change. IMPRESSION: 1. Stable tracheostomy and left PICC line. 2. Development of an extensive left lower lobe infiltrate with small left pleural effusion. 3. Mild pulmonary vascular congestion is suggested. RPTAT:AAJJ Physician Orly Date Time Electronically viewed and signed by Dm Bermudez Physician on 04/11/2018 16:30 MEDICAL DECISION MAKIN-year-old female history of hypertension, hyperlipidemia, Parkinson's disease, hypothyroidism, respiratory failure, ventilator dependent status post tracheostomy, recent admission for healthcare acquired pneumonia secondary to Pseudomonas discharged on 04/02/2018, severe sepsis, seizures, atrial fibrillation, NSTEMI, CHF, COPD, depression, dementia, encephalopathy and GERD presents to the ED via rescue ambulance for evaluation of shortness of breath and hypoxia. CBC reveals mild leukocytosis and anemia but no thrombocytopenia. Chemistry is significant for elevated BUN with normal creatinine but no electrolyte abnormalities. Troponin is 0.020. BNP is 1380. Lactate is elevated at 2.1 mmol/L EKG is negative for acute ischemic EKG changes or dysrhythmia. Chest x-ray findings as above consistent with pneumonia although congestive heart failure is also considered. Patient with multiple criteria for systemic inflammatory response syndrome. Severe epsis secondary to pneumonia although a PICC line infection is also possible. Antibiotics for healthcare acquired pneumonia initiated with the addition of tobramycin for Pseudomonas coverage. No hypotension or criteria for septic shock. Patient's respiratory status improved after vigorous suctioning and nebulized beta ago nist. Admit to telemetry for further evaluation and management. Sepsis Documentation: Patient's infectious symptoms have not stabilized and the patient is at risk of rapid decompensation. The patient will be admitted for careful hydration, antibiotic therapy, and infectious source control. SEVERE SEPSIS CRITERIA: Infectious source: Pneumonia End organ damage indicated by: Lactate > 2.0 mmol/L Acute Resp Failure (sat < 92% w/o oxygen) SEPSIS MANAGEMENT Time of recognition of sepsis: 15:57 Time of recognition of severe sepsis: 15:57. No criteria for septic shock at this time. 3 HOUR BUNDLE Blood cultures x 2 before broad-spectrum antibiotics: Yes 30 ml/kg NS bolus: Completed Initial lactate: 2.1mmol/L Repeat lactate 1.5 mmol/L SEPTIC SHOCK ASSESSMENT: Lactic acid > 4.0: No Persistent hypotension (SBP < 90 or 40 mmHg drop, MAP < 65) despite 30 mL/kg IV fluid bolus: No CRITICAL CARE Critical care time 35 minutes Emergent fluid management while maintaining close respiratory support. Provision of immediate and broad-spectrum antibiotic therapy. Simultaneous assessment for possible sources in order to direct targeted therapy. Consideration for invasive and chemical support to prevent cardiopulmonary collapse. Additional critical care time was spent in interpretation of relevant clinical data, extensive review of prior medical records as well as arranging for admission and ongoing care. Critical care time is independent of procedures performed. PATIENT CARE TRANSITIONED: Time: 17:07, Dr. Weiss. Counseled patient regarding diagnosis, diagnostic results and plan for admission. Departure Diagnosis: Primary Impression: Acute and chronic respiratory failure Additional Impressions: Severe sepsis SIRS (systemic inflammatory response syndrome) Pneumonia Pneumonia type: due to unspecified organism Laterality: left Lung location: lower lobe of lung Qualified Codes: J18.1 - Lobar pneumonia, unspecified organism Ventilator dependent Parkinsons disease Condition: Serious AIRAM OLIVO MD Apr 11, 2018 15:42
[2018-04-11] MEDS ORDERED: ASPI-903 PO (16:30)
[2018-04-11] MEDS ORDERED: CLOP75TA27 GTB (16:30)
[2018-04-11] MEDS ORDERED: FAMO20TA18 GTB (16:31)
[2018-04-11] MEDS ORDERED: LACTINEX GTB (16:34)
[2018-04-11] MEDS ORDERED: VANCOMYCIN 1 GM (PMX) 250 ML IVPB STA (16:35)
[2018-04-11] MEDS ORDERED: TOBRAMYCIN 400 MG in SOD CHLORIDE 0.9% 100 ML IVPB ONE (17:00)
[2018-04-11] MEDS ORDERED: CEFTAZIDIME 1GM/50 ML (PMX) 50 ML IVPB ONE (17:00)
[2018-04-11] MEDS ORDERED: ONDANSETRON 4 MG INJ IV PRN ×2 (17:30→18:30)
[2018-04-11] MEDS ORDERED: ACETAMINOPHEN 325 MG TAB PO PRN ×2 (17:30→18:30)
[2018-04-11] MEDS ORDERED: ALTEPLASE (CATHFLO) 2 MG INJ CATHETER PRN (18:30)
[2018-04-11] MEDS ORDERED: BISACODYL 10 MG SUPP PR PRN (18:30)
[2018-04-11] MEDS ORDERED: TOBRAMYCIN IV PER PHARMACY XX SCH (18:30)
[2018-04-11] MEDS ORDERED: NITROGLYCERIN (SL) 0.4 MG TAB SL PRN (18:30)
[2018-04-11] MEDS ORDERED: NACL 0.9% 3 ML SYG IV SCH (18:30)
[2018-04-11] MEDS ORDERED: HYDROCODONE/APAP (5/325) TAB PO PRN (18:30)
[2018-04-11] MEDS ORDERED: ALTEPLASE (CATHFLO) 2 MG INJ CATHETER ONE (18:30)
[2018-04-11] MEDS ORDERED: MAGNESIUM HYDROXIDE 30ML CUP PO PRN (18:30)
[2018-04-11] MEDS ORDERED: MAGNESIUM HYDROXIDE 30ML CUP GTB PRN (18:30)
[2018-04-11] MEDS ORDERED: DOCUSATE SODIUM 100 MG CAP PO PRN (18:30)
[2018-04-11] MEDS ORDERED: MINERAL OIL 133 ML ENEMA PR PRN (18:30)
[2018-04-11] MEDS ORDERED: VANCOMYCIN IV PER PHARMACY XX SCH (19:30)
--- NOTE | 2018-04-11 20:16 | HP ---
DATE OF ADMISSION: 04/11/2018 CHIEF COMPLAINT: Sent from nursing facility with respiratory distress and hypoxia. HISTORY OF PRESENT ILLNESS: A 77-year-old female with past medical history based on records of demen tia, AFib, GERD, prior pseudomonas pneumonia, [id number] myocardial infarction, trach placement secondary to respiratory failure, hypertension, hypothyroidism, seizure disorder, CHF, COPD and poss ible depression who was sent over from senior living facility earlier today because of shortness of breath and hypoxia. Most of the information is obtained from the ER documentation as the patient is unable to provide a full HPI. Per records, the patient was in her usual state of health until about 30 minutes prior to arrival when she had some O2 saturations in the 80s. She also had acute respira tory distress. She was sent over to the ER. She did have bag ventilation via the trach when she arr ived. She had chest x-ray performed today that showed stable tracheostomy and left PICC line but dev elopment of an extensive left lower lobe infiltrate with small left pleural effusion and pulmonary va scular congestion and her white count was 12.2 on admission. She also had a rectal temperature of 10 0.2. She was given breathing treatment in the ER as well as ceftazidime and vancomycin. The patient was recently at our hospital, treated from 03/30/2018 to 04/02/2018. At that time, she was treated for pseudomonas pneumonia, ventilator-associated, suspect this may be a similar occurrence occurring right now. PAST MEDICAL HISTORY: As above. ALLERGIES: 1. LEVAQUIN. 2. REGADENOSON. HOME MEDICATIONS: Please see senior living facility medical reconciliation sheet. PAST SURGICAL HISTORY: Again, she has had trach placement in the past. She also had PEG placement i n the past. She has also had a laparotomy in the past. SOCIAL HISTORY: Negative for smoking or drinking or IV drug abuse. FAMILY HISTORY: Noncontributory. PHYSICAL EXAMINATION: VITAL SIGNS: T-max 100.2 rectal, pulse 136 to 90, respirations 19 to 30, blood pressure 156 systolic over 111 diastolic, satting 100% on mechanical ventilation via trach. GENERAL: The patient is lying in bed, no acute distress. HEENT: Pupils equal, round, reactive to light. Extraocular muscles intact. NECK: Trach in place. No signs of any bleeding or leakage around the trach site, connected to mecha nical ventilation. LUNGS: Slightly distant breath sounds bilaterally. CARDIOVASCULAR: S1, S2 heard. No rubs or gallops. ABDOMEN: Soft, nontender, nondistended. Normal bowel sounds. No rebound or guarding. MUSCULOSKELETAL: Trace pitting edema, bilateral lower extremities to the mid calves. NEUROLOGIC: Unable to fully assess at this time. LABORATORIES: WBC 12.2, hemoglobin 11.4, hematocrit 36.2, platelets 285. Basic metabolic panel esse ntially normal. Lactic acid was a little high at 2.1. LFTs are normal. BNP was a little high at 13 80. We mentioned her chest x-ray findings. UA shows negative nitrites, negative leukocyte esterase. ASSESSMENT AND PLAN: A 77-year-old female coming in with shortness of breath and hypoxia, signs of r espiratory distress with findings of pneumonia on chest x-ray, possibly secondary to Pseudomonas. 1. Respiratory distress again with hypoxia and shortness of breath. Chest x-ray findings positive f or pneumonia. We will admit the patient. Based on the prior sensitivities she had drawn here, we wi ll put her on Tobramycin IV for now. Consider infectious disease consult and pulmonary consult. Fol low up TSH, A1c and lipid panel. Low-dose IV fluids since she does have signs of sepsis with mild la ctic acidosis; cautious use, however, because of her slightly elevated BNP. Get PT/OT consults and c onsider speech therapy consult as well. We will also put her on vancomycin since we are dealing with likely ventilator-associated pneumonia coming from a senior living facility. Continue Ann Villanueva p.r.n. 2. Hypothyroidism. Follow up thyroid panel. Continue Synthroid. 3. History of chronic obstructive pulmonary disease. Continue DuoNeb p.r.n. 4. History of congestive heart failure. Again, her last echocardiogram was performed on 03/31/2018. At that time, it showed ejection fraction 45%, normal left ventricular cavity size, mild global lef t ventricular systolic dysfunction, so again, cautious use of IV fluids for now given that she has si gns of sepsis. We are holding her p.o. Lasix for now but will need to resume that likely in the next few days once her sepsis resolves. 5. History of seizure disorder. No present issues. Continue to monitor for now. Ativan p.r.n. 6. History of [id number] myocardial infarction. No present issues. Continue with current car diac medications, aspirin and Plavix. 7. History of dementia. Again, continue to monitor for now. 8. Atrial fibrillation. We will monitor on telemetry floor for now. Appears to be rate controlled at this point. 9. History of gastroesophageal reflux disease. Continue H2 brandy. 10. Deep venous thrombosis prophylaxis. Heparin subcutaneously. Dictated By: ARETHA JACKSON Conf#: [id number] DID#: [id number]
[2018-04-11] MEDS: SOD CHLORIDE 0.45% 1,000 ML IV SCH (20:45)
[2018-04-11 21:00] VITALS: BP 134/60; PULSE 83; RESP 18; RESP 21; Ht 160 cm; Wt 84.9 kg
[2018-04-11] MEDS ORDERED: NON-FORMULARY/PATIENT OWN MED (Cran/Vitc/Mannose/Inulin/Brom (Uti-Stat Liquid) 3,875 MG) GTB SCH (21:00)
[2018-04-11 21:06] VITALS: PULSE 76
[2018-04-11] MEDS: HEPARIN 5,000 UNIT/1 ML VIAL SC SCH (22:48)
[2018-04-11 23:00] VITALS: RESP 16
[2018-04-11] MEDS: MONTELUKAST 10 MG TAB GTB SCH (23:13)
[2018-04-11] MEDS: ATORVASTATIN 20 MG TAB GTB SCH (23:13)
[2018-04-11] MEDS: CHLORHEXIDINE GLUCONATE 15 ML UD CUP MM SCH (23:18)
[2018-04-11] MEDS: PRIMIDONE 250 MG TAB GTB SCH (23:56)
[2018-04-11] MEDS: PRAMIPEXOLE 0.25 MG TAB GTB SCH (23:57)
[2018-04-12] VITALS (24 sets, daily range): BP systolic 81–164; BP diastolic 52–109; PULSE 54–102; RESP 16–24
[2018-04-12] MEDS: LORAZEPAM 2 MG INJ IV PRN ×3 (00:03→18:07)
[2018-04-12] MEDS: PRAMIPEXOLE 0.25 MG TAB GTB SCH ×2 (00:03→20:54)
[2018-04-12] MEDS: morphine 2 MG INJ IV PRN ×3 (02:19→20:54)
[2018-04-12] MEDS: SOD CHLORIDE 0.45% 1,000 ML IV SCH ×2 (02:23→07:29)
[2018-04-12] MEDS: LEVOTHYROXINE 25 MCG TAB PO SCH (07:24)
[2018-04-12] MEDS: FAMOTIDINE 20 MG TAB GTB SCH (08:42)
[2018-04-12] MEDS: ALLOPURINOL 100 MG TAB GTB SCH (08:42)
[2018-04-12] MEDS: CHLORHEXIDINE GLUCONATE 15 ML UD CUP MM SCH ×2 (08:43→20:26)
[2018-04-12] MEDS: L ACIDOPHIL/B LACTIS/B LONGUM CAPSULE PO SCH ×2 (08:43→20:19)
[2018-04-12] MEDS: DULOXETINE 30 MG CAP DR GTB SCH (08:43)
[2018-04-12] MEDS: CLOPIDOGREL 75 MG TAB GTB SCH (08:43)
[2018-04-12] MEDS: ASCORBIC ACID 500 MG TAB GTB SCH (08:43)
[2018-04-12] MEDS: SERTRALINE 50 MG TAB GTB SCH (08:47)
[2018-04-12] MEDS: MULTIVITAMINS THERAPEUTIC TAB GTB SCH (08:47)
[2018-04-12] MEDS: ASPIRIN 81 MG TAB PO SCH (08:47)
[2018-04-12] MEDS: LAMOTRIGINE 100 MG TAB GTB SCH (08:47)
[2018-04-12] MEDS: HEPARIN 5,000 UNIT/1 ML VIAL SC SCH ×2 (08:52→20:28)
--- NOTE | 2018-04-12 13:21 | CONS ---
DATE OF ADMISSION: 04/11/2018 DATE OF CONSULTATION: REASON FOR CONSULTATION: Ventilator management. Thank you, Dr. Osuna, for this consultation. HISTORY OF PRESENT ILLNESS: This is a 77-year-old lady with history of dementia, pseudomonal pneumon ia, AFib, gastroesophageal reflux disease, chronic respiratory failure on mechanical ventilation, bro ught in from detention facility for increasing shortness of breath, orthopnea, PND. Chest x-ra y showed pulmonary edema, possible underlying infiltrate. She in addition was noted to be febrile wi th mild leukocytosis and mild lactic acidosis. BNP was elevated. Urinalysis was unremarkable. PAST MEDICAL HISTORY: As above. ALLERGIES: INCLUDE LEVAQUIN. SOCIAL HISTORY: She is a nonsmoker, no alcohol, no history of drug use. FAMILY HISTORY: Noncontributory. SYSTEMS REVIEW: A 12-point review of systems was negative other than that mentioned above. PHYSICAL EXAMINATION: GENERAL: Well-nourished, well-developed lady, comfortable at rest, no acute distress. Currently con tinues mechanical ventilation via tracheostomy. VITAL SIGNS: Temperature 98, pulse is 97, blood pressure 160/100, O2 saturation 96%, FIO2 of 60%. NECK: Trach site clean and intact. CARDIAC: S1, S2, no added sounds or murmurs. CHEST: Diminished air entry bilaterally. ABDOMEN: Soft, nontender. No guarding or rebound. EXTREMITIES: No cyanosis, clubbing or edema. NEUROLOGICAL: Grossly intact. No focal deficits. LABORATORY DATA: White count now 7.1, hemoglobin 9.7, platelets of 239. BUN 18, creatinine 0.64. I NR 0.95. IMPRESSION AND PLAN: 1. Likely worsening congestive cardiac failure. 2. Vent dependent respiratory failure. 3. History of chronic obstructive pulmonary disease. 4. History of coronary artery disease. 5. Hypothyroidism. The patient will require: 1. Short course of antibiotics. 2. Diuretics. 3. Vent support. 4. DVT and GI prophylaxis. 5. Mendez culture. 6. Transfer back to [facility] facility soon. Dictated By: MARCOS LEIVA MD SV/JORY Conf#: [id number] DID#: [id number] CC: ARETHA OSUNA; LEVI STARK MD;*EndCC*
[2018-04-12] MEDS: FUROSEMIDE 40 MG INJ IV SCH (13:24)
--- NOTE | 2018-04-12 13:24 | PN ---
Date/Time of Note Date/Time of Note DATE: 04/12/18 TIME: 13:18 Assessment/Plan VTE Prophylaxis Risk score (from Ns)>0 risk: 7 SCD applied (from Nsg): Yes Pharmacological prophylaxis: other Lines/Catheters IV Catheter Type (from Nrsg): PICC Line Central line still needed: Yes Urinary Cath still in place: No Assessment/Plan Hospital Course S: Patient somewhat anxious, seen by speech therapy team earlier today. Now tolerating their diet recommendations. O: VS PHYSICAL EXAMINATION: GENERAL: lying in bed, no acute distress. HEENT: Pupils equal, round, reactive to light. Extraocular muscles intact. NECK: Trach in place. No signs of any bleeding or leakage around the trach site, connected to mechanical ventilation. LUNGS: Slightly distant breath sounds bilaterally. CARDIOVASCULAR: S1, S2 heard. No rubs or gallops. ABDOMEN: Soft, nontender, nondistended. Normal bowel sounds. No rebound or guarding. MUSCULOSKELETAL: Trace pitting edema, bilateral lower extremities to the mid calves. NEUROLOGIC: no apparent focal deficits ASSESSMENT AND PLAN: 77-year-old female coming in with shortness of breath and hypoxia, signs of respiratory distress with findings of pneumonia on chest x- ray, possibly secondary to Pseudomonas. 1. Respiratory distress again with hypoxia and shortness of breath-white blood cell count improved chest x-ray findings positive for pneumonia. -Based on prior sensitivities she had drawn here, for now continue tobramycin IV -Follow-up recommendations from infectious disease consult and pulmonary consult. -Follow up TSH, A1c and lipid panel. -Follow-up PT/OT consults and consider speech therapy consult recommendations -Continue vancomycin since we are dealing with likely ventilator-associated pneumonia [facility]. - Continue Cecile Villanuevab p.r.n. 2. Hypothyroidism. Follow up thyroid panel. Continue Synthroid. 3. History of chronic obstructive pulmonary disease. Continue DuoNeb p.r.n. 4. History of congestive heart failure. Again, her last echocardiogram was performed on 03/31/2018. At that time, it showed ejection fraction 45%, normal left ventricular cavity size, mild global left ventricular systolic dysfunction, -Consider restarting Lasix now 5. History of seizure disorder. No present issues. Continue to monitor for now. Ativan p.r.n. 6. History of [id number] myocardial infarction. No present issues. Continue with current cardiac medications, aspirin and Plavix. 7. History of dementia. Again, continue to monitor for now. 8. Atrial fibrillation. We will monitor on telemetry floor for now. Appears to be rate controlled at this point. 9. History of gastroesophageal reflux disease. Continue H2 brandy. 10. Deep venous thrombosis prophylaxis. Heparin subcutaneously. Result Diagram: 04/12/18 0551 04/12/18 0550 Results 24hrs Laboratory Tests Test 04/11/18 15:29 04/11/18 15:57 04/11/18 16:15 04/11/18 17:30 Blood Gas Blood arterial Specimen Source Arterial Blood 04/11/2018 4:12: Date Drawn 04 PM Arterial Blood 7.316 L pH (Temp corrected) Arterial Blood 58.7 H pCO2 (Temp correct) Arterial Blood 67.8 L pO2 (Temp corrected) Arterial Blood 29.3 H HCO3 Arterial Blood 1.8 Base Excess Arterial Blood 93.2 L Oxygen Saturatio n [place] Test ACCEPTAB Arterial Blood Right Radial Gas Puncture Site Arterial 0.5 Blood Carboxyhem oglobin Arterial Blood 0.3 Methemoglobin Blood Gas A-a O2 586.5 H Differential Oxyhemoglobin 92.5 L Percent Blood Gas 37.0 Temperature Blood Gas 16.0 Respiration Rate Blood Gas Actual 25 Respiration Rate Blood Gas VENT - AC Modality FiO2 100.0 Blood Gas Tidal 500.0 Volume Blood Gas Low 5.0 PEEP Setting Blood Gas MDA Notified Whom Blood Gas 04/11/2018 4:15: Notified Time 00 PM POC Venous 2.1 *H Lactate White Blood 12.2 #H Count Red Blood Count 3.59 L Hemoglobin 11.4 L Hematocrit 36.2 L Mean Corpuscular 100.8 Volume Mean Corpuscular 31.8 Hemoglobin Mean Corpuscular 31.5 L Hemoglobin Suzanne nt Red Cell 14.8 H Distribution Width Platelet Count 285 # Mean Platelet 9.8 Volume Immature 1.400 H Granulocytes % Neutrophils % 87.1 H Lymphocytes % 5.0 L Monocytes % 5.2 Eosinophils % 0.9 Basophils % 0.4 Nucleated Red 0.0 Blood Cells % Immature 0.170 H Granulocytes # Neutrophils # 10.7 H Lymphocytes # 0.6 L Monocytes # 0.6 Eosinophils # 0.1 Basophils # 0.1 Nucleated Red 0.0 Blood Cells # Prothrombin Time 12.8 # Prothrombin Time 1.0 Ratio INR 0.95 International Normalized Ratio Activated 24.2 Partial Thrombop last Time Sodium Level 141 Potassium Level 4.1 Chloride Level 98 Carbon Dioxide 27 Level Anion Gap 16 H Blood Urea 21 H Nitrogen Creatinine 0.85 Est Glomerular Filtrat Rate mL/min Glucose Level 159 Calcium Level 9.4 Total Bilirubin 0.1 L Direct Bilirubin 0.00 Indirect 0.1 Bilirubin Aspartate Amino 35 Transf (AST/SGOT ) Alanine 23 Aminotransferase (ALT/SGPT) Alkaline 146 H Phosphatase Troponin I 0.020 B-Type 1380 H Natriuretic Peptide Total Protein 7.9 Albumin 4.5 Globulin 3.40 H Albumin/Globulin 1.32 Ratio Free Thyroxine 1.11 Urine Color YELLOW Urine Clarity SLIGHTLY CLOUDY A Urine pH 5.0 Urine Specific 1.018 [place] Urine Ketones TRACE A Urine Nitrite NEGATIVE Urine Bilirubin NEGATIVE Urine NEGATIVE Urobilinogen Urine Leukocyte NEGATIVE Esterase Urine 11 H Microscopic RBC Urine 2 Microscopic WBC Urine Squamous FEW Epithelial Cells Urine Hyaline FEW A Casts Urine Mucus FEW A Urine Hemoglobin NEGATIVE Urine Glucose NEGATIVE Urine Total 1+ H Protein Test 04/11/18 19:21 04/12/18 05:50 04/12/18 05:51 04/12/18 08:00 POC Venous 1.5 Lactate Sodium Level 140 Potassium Level 3.5 Chloride Level 101 Carbon Dioxide 31 Level Anion Gap 8 # Blood Urea 18 Nitrogen Creatinine 0.64 Est Glomerular Filtrat Rate mL/min Glucose Level 90 # Calcium Level 8.2 L Phosphorus Level 3.6 Magnesium Level 2.0 Triglycerides 86 Level Cholesterol 147 Level LDL Cholesterol, 55 Calculated HDL Cholesterol 75 Cholesterol/HDL 1.9 Ratio Thyroid 0.960 Stimulating Hormone (TSH) White Blood 7.1 # Count Red Blood Count 3.04 L Hemoglobin 9.7 L Hematocrit 30.8 L Mean Corpuscular 101.3 H Volume Mean Corpuscular 31.9 Hemoglobin Mean Corpuscular 31.5 L Hemoglobin Suzanne nt Red Cell 15.0 H Distribution Width Platelet Count 239 Mean Platelet 10.7 H Volume Immature 0.400 Granulocytes % Neutrophils % 69.5 Lymphocytes % 17.6 Monocytes % 8.2 Eosinophils % 3.5 Basophils % 0.8 Nucleated Red 0.0 Blood Cells % Immature 0.030 Granulocytes # Neutrophils # 4.9 Lymphocytes # 1.2 Monocytes # 0.6 Eosinophils # 0.3 Basophils # 0.1 Nucleated Red 0.0 Blood Cells # Hemoglobin A1c 5.4 Blood Gas Blood arterial Specimen Source Arterial Blood 04/12/2018 9:10: Date Drawn 12 AM Arterial Blood 7.427 pH (Temp corrected) Arterial Blood 42.1 pCO2 (Temp correct) Arterial Blood 271.7 H pO2 (Temp corrected) Arterial Blood 27.1 H HCO3 Arterial Blood 2.5 Base Excess Arterial Blood 99.5 Oxygen Saturatio n [place] Test N/A Arterial Blood Right Brachial Gas Puncture Site Arterial 0 Blood Carboxyhem oglobin Arterial Blood 0.3 Methemoglobin Blood Gas A-a O2 182.1 H Differential Oxyhemoglobin 99.2 H Percent Blood Gas 37.0 Temperature Blood Gas 16.0 Respiration Rate Blood Gas Actual 16 Respiration Rate Blood Gas VENT - AC Modality FiO2 70.0 Blood Gas Tidal 500.0 Volume Blood Gas Low 5.0 PEEP Setting Blood Gas Jono ROOT Notified Whom Blood Gas 04/12/2018 9:24: Notified Time 02 AM Exam/Review of Systems Exam Vitals Vital Signs Date Temp Pulse Resp B/P (MAP) Pulse Ox O2 O2 Flow FiO2 Time Delivery Rate 04/12/18 87 12:00 04/12/18 98.4 24 164/109 93 11:34 (127) 04/12/18 90 05:32 04/12/18 Mechanical 03:56 Ventilator 04/11/18 15 16:15 Intake and Output 04/11/18 04/11/18 04/12/18 1515:00 23:00 07:00 IntakeIntake Total 150 ml BalanceBalance 150 ml Results Results 24hrs Laboratory Tests Test 04/11/18 15:29 04/11/18 15:57 04/11/18 16:15 04/11/18 17:30 Blood Gas Blood arterial Specimen Source Arterial Blood 04/11/2018 4:12: Date Drawn 04 PM Arterial Blood 7.316 L pH (Temp corrected) Arterial Blood 58.7 H pCO2 (Temp correct) Arterial Blood 67.8 L pO2 (Temp corrected) Arterial Blood 29.3 H HCO3 Arterial Blood 1.8 Base Excess Arterial Blood 93.2 L Oxygen Saturatio n [place] Test ACCEPTAB Arterial Blood Right Radial Gas Puncture Site Arterial 0.5 Blood Carboxyhem oglobin Arterial Blood 0.3 Methemoglobin Blood Gas A-a O2 586.5 H Differential Oxyhemoglobin 92.5 L Percent Blood Gas 37.0 Temperature Blood Gas 16.0 Respiration Rate Blood Gas Actual 25 Respiration Rate Blood Gas VENT - AC Modality FiO2 100.0 Blood Gas Tidal 500.0 Volume Blood Gas Low 5.0 PEEP Setting Blood Gas MDA Notified Whom Blood Gas 04/11/2018 4:15: Notified Time 00 PM POC Venous 2.1 *H Lactate White Blood 12.2 #H Count Red Blood Count 3.59 L Hemoglobin 11.4 L Hematocrit 36.2 L Mean Corpuscular 100.8 Volume Mean Corpuscular 31.8 Hemoglobin Mean Corpuscular 31.5 L Hemoglobin Suzanne nt Red Cell 14.8 H Distribution Width Platelet Count 285 # Mean Platelet 9.8 Volume Immature 1.400 H Granulocytes % Neutrophils % 87.1 H Lymphocytes % 5.0 L Monocytes % 5.2 Eosinophils % 0.9 Basophils % 0.4 Nucleated Red 0.0 Blood Cells % Immature 0.170 H Granulocytes # Neutrophils # 10.7 H Lymphocytes # 0.6 L Monocytes # 0.6 Eosinophils # 0.1 Basophils # 0.1 Nucleated Red 0.0 Blood Cells # Prothrombin Time 12.8 # Prothrombin Time 1.0 Ratio INR 0.95 International Normalized Ratio Activated 24.2 Partial Thrombop last Time Sodium Level 141 Potassium Level 4.1 Chloride Level 98 Carbon Dioxide 27 Level Anion Gap 16 H Blood Urea 21 H Nitrogen Creatinine 0.85 Est Glomerular Filtrat Rate mL/min Glucose Level 159 Calcium Level 9.4 Total Bilirubin 0.1 L Direct Bilirubin 0.00 Indirect 0.1 Bilirubin Aspartate Amino 35 Transf (AST/SGOT ) Alanine 23 Aminotransferase (ALT/SGPT) Alkaline 146 H Phosphatase Troponin I 0.020 B-Type 1380 H Natriuretic Peptide Total Protein 7.9 Albumin 4.5 Globulin 3.40 H Albumin/Globulin 1.32 Ratio Free Thyroxine 1.11 Urine Color YELLOW Urine Clarity SLIGHTLY CLOUDY A Urine pH 5.0 Urine Specific 1.018 [place] Urine Ketones TRACE A Urine Nitrite NEGATIVE Urine Bilirubin NEGATIVE Urine NEGATIVE Urobilinogen Urine Leukocyte NEGATIVE Esterase Urine 11 H Microscopic RBC Urine 2 Microscopic WBC Urine Squamous FEW Epithelial Cells Urine Hyaline FEW A Casts Urine Mucus FEW A Urine Hemoglobin NEGATIVE Urine Glucose NEGATIVE Urine Total 1+ H Protein Test 04/11/18 19:21 04/12/18 05:50 04/12/18 05:51 04/12/18 08:00 POC Venous 1.5 Lactate Sodium Level 140 Potassium Level 3.5 Chloride Level 101 Carbon Dioxide 31 Level Anion Gap 8 # Blood Urea 18 Nitrogen Creatinine 0.64 Est Glomerular Filtrat Rate mL/min Glucose Level 90 # Calcium Level 8.2 L Phosphorus Level 3.6 Magnesium Level 2.0 Triglycerides 86 Level Cholesterol 147 Level LDL Cholesterol, 55 Calculated HDL Cholesterol 75 Cholesterol/HDL 1.9 Ratio Thyroid 0.960 Stimulating Hormone (TSH) White Blood 7.1 # Count Red Blood Count 3.04 L Hemoglobin 9.7 L Hematocrit 30.8 L Mean Corpuscular 101.3 H Volume Mean Corpuscular 31.9 Hemoglobin Mean Corpuscular 31.5 L Hemoglobin Suzanne nt Red Cell 15.0 H Distribution Width Platelet Count 239 Mean Platelet 10.7 H Volume Immature 0.400 Granulocytes % Neutrophils % 69.5 Lymphocytes % 17.6 Monocytes % 8.2 Eosinophils % 3.5 Basophils % 0.8 Nucleated Red 0.0 Blood Cells % Immature 0.030 Granulocytes # Neutrophils # 4.9 Lymphocytes # 1.2 Monocytes # 0.6 Eosinophils # 0.3 Basophils # 0.1 Nucleated Red 0.0 Blood Cells # Hemoglobin A1c 5.4 Blood Gas Blood arterial Specimen Source Arterial Blood 04/12/2018 9:10: Date Drawn 12 AM Arterial Blood 7.427 pH (Temp corrected) Arterial Blood 42.1 pCO2 (Temp correct) Arterial Blood 271.7 H pO2 (Temp corrected) Arterial Blood 27.1 H HCO3 Arterial Blood 2.5 Base Excess Arterial Blood 99.5 Oxygen Saturatio n [place] Test N/A Arterial Blood Right Brachial Gas Puncture Site Arterial 0 Blood Carboxyhem oglobin Arterial Blood 0.3 Methemoglobin Blood Gas A-a O2 182.1 H Differential Oxyhemoglobin 99.2 H Percent Blood Gas 37.0 Temperature Blood Gas 16.0 Respiration Rate Blood Gas Actual 16 Respiration Rate Blood Gas VENT - AC Modality FiO2 70.0 Blood Gas Tidal 500.0 Volume Blood Gas Low 5.0 PEEP Setting Blood Gas Jono ROOT Notified Whom Blood Gas 04/12/2018 9:24: Notified Time 02 AM Medications Medication Current Medications IV Flush (NS 3 ml) 3 ml PER PROTOCOL IV ; Start 04/11/18 at 18:30 Ondansetron HCl (Zofran Inj) 4 mg Q6H PRN IV NAUSEA/VOMITING; Start 04/11/18 at 18:30 Acetaminophen (Tylenol Tab) 650 mg Q6H PRN PO .PAIN 1-3 OR TEMP; Start 04/11/18 at 18:30 Acetaminophen/ Hydrocodone Bitart ([place] (5/325)) 1 tab Q6H PRN PO .MOD PAIN 4- 6; Start 04/11/18 at 18:30 Morphine Sulfate (morphine) 2 mg Q4H PRN IV .SEVERE PAIN 7-10 Last administered on 04/12/18at 11:13; Admin Dose 2 MG; Start 04/11/18 at 18:30 Docusate Sodium (Colace) 100 mg Q12H PRN PO .CONSTIPATION; Start 04/11/18 at 18:30 Magnesium Hydroxide (Milk Of Mag) 30 ml DAILY PRN PO .CONSTIPATION; Start 04/11/18 at 18:30 Heparin Sodium (Porcine) (Heparin (5000 Units/1ml)) 5,000 unit Q12 SC Last administered on 04/12/18at 08:52; Admin Dose 5,000 UNIT; Start 04/11/18 at 21:00 Lorazepam (Ativan) 0.5 mg Q6H PRN IV ANXIETY Last administered on 04/12/18at 11:57; Admin Dose 0.5 MG; Start 04/11/18 at 18:30 Albuterol/ Ipratropium (Duoneb) 3 ml Q4H RESP THERAPY PRN HHN SHORTNESS OF BREATH; Start 04/11/18 at 18:30 Hydralazine HCl (Apresoline) 10 mg Q6H PRN IV ELEVATED BLOOD PRESSURE; Start 04/11/18 at 18:30 Nitroglycerin (Nitroglycerin (Sl Tab) 0.4 Mg) 1 tab Q5M PRN SL ANGINA; Start 04/11/18 at 18:30 Allopurinol (Zyloprim) 100 mg DAILY GTB Last administered on 04/12/18at 08:42; Admin Dose 100 MG; Start 04/12/18 at 09:00 Ascorbic Acid (Vitamin C) 500 mg DAILY GTB Last administered on 04/12/18at 08:43; Admin Dose 500 MG; Start 04/12/18 at 09:00 Aspirin (Aspirin) 81 mg DAILY PO Last administered on 04/12/18at 08:47; Admin Dose 81 MG; Start 04/12/18 at 09:00 Atorvastatin Calcium (Lipitor) 20 mg QHS GTB Last administered on 04/11/18 23:13; Admin Dose 20 MG; Start 04/11/18 at 21:00 Bisacodyl (Dulcolax Supp) 10 mg Q24H PRN [place] CONSTIPATION; Start 04/11/18 at 18:30 Chlorhexidine Gluconate (Peridex) 15 ml Q12 MM Last administered on 04/12/18 08:43; Admin Dose 15 ML; Start 04/11/18 at 23:00 Clopidogrel Bisulfate (plaVIX) 75 mg DAILY GTB Last administered on 04/12/18 08:43; Admin Dose 75 MG; Start 04/12/18 at 09:00 Duloxetine HCl (Cymbalta) 60 mg DAILY GTB Last administered on 04/12/18 08:43; Admin Dose 60 MG; Start 04/12/18 at 09:00 Famotidine (Pepcid) 20 mg DAILY GTB Last administered on 04/12/18 08:42; Admin Dose 20 MG; Start 04/12/18 at 09:00 Hydralazine HCl (Apresoline) 10 mg Q8 PRN GTB ELEVATED BLOOD PRESSURE; Start 04/11/18 at 18:30 Lamotrigine (Lamictal) 200 mg DAILY GTB Last administered on 04/12/18 08:47; Admin Dose 200 MG; Start 04/12/18 at 09:00 Levothyroxine Sodium (Synthroid) 25 mcg BEFORE BREAKFAST PO Last administered on 04/12/18at 07:24; Admin Dose 25 MCG; Start 04/12/18 at 07:00 Magnesium Hydroxide (Milk Of Mag) 30 ml DAILY PRN GTB CONSTIPATION; Start at 18:30 Mineral Oil (Fleet Mineral Oil Enema) 133 ml DAILY PRN [place] CONSTIPATION; Start 04/11/18 at 18:30 Montelukast Sodium (Singulair) 10 mg QHS GTB Last administered on 04/11/18 23:13; Admin Dose 10 MG; Start 04/11/18 at 21:00 Multivitamins Therapeutic (Theragran) 1 tab DAILY GTB Last administered on 04/12/18 08:47; Admin Dose 1 TAB; Start 04/12/18 at 09:00 Pramipexole (Mirapex) 0.5 mg HS GTB Last administered on 04/12/18at 00:03; Admin Dose 0.5 MG; Start 04/11/18 at 21:00 Primidone (Mysoline) 250 mg QHS GTB Last administered on 04/11/18at 23:56; Admin Dose 250 MG; Start 04/11/18 at 21:00 Sertraline HCl (Zoloft) 25 mg DAILY GTB Last administered on 04/12/18at 08:47; Admin Dose 25 MG; Start 04/12/18 at 09:00 Simethicone (Mylicon) 80 mg Q6H PRN GTB DISTENSION/GAS/BLOATING Last administered on 04/11/18at 23:20; Admin Dose 80 MG; Start 04/11/18 at 18:30 Lactobacillus Acidophilus (Florajen3 Capsule) 1 each BID PO Last administered on 04/12/18at 08:43; Admin Dose 1 EACH; Start 04/12/18 at 09:00 Tobramycin (Tobramycin Iv Per Pharmacy) TOBRAMYCIN PER PHARMACY NOTE XX ; Start 04/11/18 at 18:30 Alteplase, Recombinant (Cathflo (Activase)) 2 mg MAY REPEAT X1 PRN CATHETER IF CATHETER REMAINS OCCULUDED; Start 04/11/18 at 18:30 Vancomycin HCl (Vanco Iv Per Pharmacy) VANCOMYCIN PER PHARMACY PER PROTOCOL XX ; Start 04/11/18 at 19:30 Vancomycin HCl 250 ml @ 125 mls/hr Q24H IVPB ; Start 04/12/18 at 20:30 Tobramycin 340 mg/ Dextrose 108.5 ml @ 108.5 mls/ hr Q36H IVPB ; Start 04/13/18 at 07:30; Status Future Hold Furosemide (Lasix) 40 mg DAILY IV ; Start 04/12/18 at 13:00 ARETHA OSUNA Apr 12, 2018 13:24
--- NOTE | 2018-04-12 14:48 | CONS ---
Assessment/Plan Assessment/Plan Hospital Course (Demo Recall) ID SHORT NOTE =>Please refer to Dr. Reid's ID Consultation Note from today, pending dictation performance consultant CURRENT ABX: =>Tobramycin IV + Vanco IV 24H INTERVAL SUMMARY * Lethargic, VSS, looks comfortable on the Vent, non-communicative * Readmitted with SIRS vs early sepsis -- suspect PICC line vs HCAP = Hx of recent admission and treated for PSAR PNA * 04/12/18 CXR: IMPRESSION:Patchy bilateral alveolar infiltrates, left greater than right, are minimally improved. Minimal bilateral pleural effusions unchanged. * 03/30/2018 RESPIRATORY CULTURE Final Organism 1 PSEUDOMONAS AERUGINOSA QUANTITY 2+ PSEUDOMONAS AERUGINOSA IS MULTI DRUG RESISTANT ORGANISM P.AERUG P.AERUG M.I.C. RX M.I.C. RX --------- --- --------- --- AMIKACIN 8 S AZTREONAM I CEFEPIME 8 I CEFTAZIDIME 16 S CIPROFLOXACIN >=4 R GENTAMICIN 4 S LEVOFLOXACIN >=8 R MEROPENEM >32 R TOBRAMYCIN <=1 S PIPERACILLIN/TAZOBACTAM >=128 R PHYSICAL EXAMINATION: GENERAL: 76 yo F stable on the Vent, lethargic HEENT: AT, NC, anicteric NECK: Trach => Secure to Vent CHEST: Course BS HEART: RRR ABDOMEN: soft, peg EXT: Warm, mild edema x 4 extremities, skin rash upper-ext contact dermatitis under tape/Tegaderm SKIN: no RASH no diaphoresis ID ASSESSMENT: 76 yo F admit with: 1. SIRS w./transient early sepsis w/TMax VT 100.3, HR 100 bpm, B/P 100/51 due to PICC sepsis vs PNA * Urine cx (-) 24H * Hx of recent PSAR MDRO PNA 03/30/2018 RESPIRATORY CULTURE Final Organism 1 PSEUDOMONAS AERUGINOSA QUANTITY 2+ PSEUDOMONAS AERUGINOSA IS MULTI DRUG RESISTANT ORGANISM 2 Chronic respiratory failure, ventilator dependent via tracheostomy 3. Ventilator / Aspiration associated pneumonia secondary to multidrug- resistant Pseudomonas causing #1 4. Hypertension with good control 5. Paroxysmal atrial fibrillation on Eliquis with good rate control 6. Hypothyroidism with good control 7. Chronic iron deficiency anemia on supplementation 8. Dyslipidemia 9. Morbid obesity 10. Adjustment disorder with depressed mood 121 Chronic dysphagia status post PEG tube placement, INVASIVES: PIV, Trach, Peg ABX ALLERGY: LEVAQUIN CURRENT ABX: =>Tobramycin IV + Vanco IV ID RECOMMENDATIONS/PLAN: 1. Continue current ABX -> await final results of MICRO Cx pending. 2. PICC line w/local contact dermatitis/erythema/rash under plastic tape and Tegaderm -- monitor for superimposed cellulitis . Consultation Date/Type/Reason Admit Date/Time Apr 11, 2018 at 17:11 Initial Consult Date Date/Time of Note DATE: 04/12/18 TIME: 14:37 Exam/Review of Systems Exam Vitals Vital Signs Date Temp Pulse Resp B/P (MAP) Pulse Ox O2 O2 Flow FiO2 Time Delivery Rate 04/12/18 87 12:00 04/12/18 98.4 24 164/109 93 11:34 (127) 04/12/18 90 05:32 04/12/18 Mechanical 03:56 Ventilator 04/11/18 15 16:15 Intake and Output 04/11/18 04/11/18 04/12/18 1515:00 23:00 07:00 IntakeIntake Total 150 ml BalanceBalance 150 ml Results Result Diagram: 04/12/18 0551 04/12/18 0550 Results 24hrs Laboratory Tests Test 04/11/18 15:29 04/11/18 15:57 04/11/18 16:15 04/11/18 17:30 Blood Gas Blood arterial Specimen Source Arterial Blood 04/11/2018 4:12: Date Drawn 04 PM Arterial Blood 7.316 L pH (Temp corrected) Arterial Blood 58.7 H pCO2 (Temp correct) Arterial Blood 67.8 L pO2 (Temp corrected) Arterial Blood 29.3 H HCO3 Arterial Blood 1.8 Base Excess Arterial Blood 93.2 L Oxygen Saturatio n [place] Test ACCEPTAB Arterial Blood Right Radial Gas Puncture Site Arterial 0.5 Blood Carboxyhem oglobin Arterial Blood 0.3 Methemoglobin Blood Gas A-a O2 586.5 H Differential Oxyhemoglobin 92.5 L Percent Blood Gas 37.0 Temperature Blood Gas 16.0 Respiration Rate Blood Gas Actual 25 Respiration Rate Blood Gas VENT - AC Modality FiO2 100.0 Blood Gas Tidal 500.0 Volume Blood Gas Low 5.0 PEEP Setting Blood Gas MDA Notified Whom Blood Gas 04/11/2018 4:15: Notified Time 00 PM POC Venous 2.1 *H Lactate White Blood 12.2 #H Count Red Blood Count 3.59 L Hemoglobin 11.4 L Hematocrit 36.2 L Mean Corpuscular 100.8 Volume Mean Corpuscular 31.8 Hemoglobin Mean Corpuscular 31.5 L Hemoglobin Suzanne nt Red Cell 14.8 H Distribution Width Platelet Count 285 # Mean Platelet 9.8 Volume Immature 1.400 H Granulocytes % Neutrophils % 87.1 H Lymphocytes % 5.0 L Monocytes % 5.2 Eosinophils % 0.9 Basophils % 0.4 Nucleated Red 0.0 Blood Cells % Immature 0.170 H Granulocytes # Neutrophils # 10.7 H Lymphocytes # 0.6 L Monocytes # 0.6 Eosinophils # 0.1 Basophils # 0.1 Nucleated Red 0.0 Blood Cells # Prothrombin Time 12.8 # Prothrombin Time 1.0 Ratio INR 0.95 International Normalized Ratio Activated 24.2 Partial Thrombop last Time Sodium Level 141 Potassium Level 4.1 Chloride Level 98 Carbon Dioxide 27 Level Anion Gap 16 H Blood Urea 21 H Nitrogen Creatinine 0.85 Est Glomerular Filtrat Rate mL/min Glucose Level 159 Calcium Level 9.4 Total Bilirubin 0.1 L Direct Bilirubin 0.00 Indirect 0.1 Bilirubin Aspartate Amino 35 Transf (AST/SGOT ) Alanine 23 Aminotransferase (ALT/SGPT) Alkaline 146 H Phosphatase Troponin I 0.020 B-Type 1380 H Natriuretic Peptide Total Protein 7.9 Albumin 4.5 Globulin 3.40 H Albumin/Globulin 1.32 Ratio Free Thyroxine 1.11 Urine Color YELLOW Urine Clarity SLIGHTLY CLOUDY A Urine pH 5.0 Urine Specific 1.018 [place] Urine Ketones TRACE A Urine Nitrite NEGATIVE Urine Bilirubin NEGATIVE Urine NEGATIVE Urobilinogen Urine Leukocyte NEGATIVE Esterase Urine 11 H Microscopic RBC Urine 2 Microscopic WBC Urine Squamous FEW Epithelial Cells Urine Hyaline FEW A Casts Urine Mucus FEW A Urine Hemoglobin NEGATIVE Urine Glucose NEGATIVE Urine Total 1+ H Protein Test 04/11/18 19:21 04/12/18 05:50 04/12/18 05:51 04/12/18 08:00 POC Venous 1.5 Lactate Sodium Level 140 Potassium Level 3.5 Chloride Level 101 Carbon Dioxide 31 Level Anion Gap 8 # Blood Urea 18 Nitrogen Creatinine 0.64 Est Glomerular Filtrat Rate mL/min Glucose Level 90 # Calcium Level 8.2 L Phosphorus Level 3.6 Magnesium Level 2.0 Triglycerides 86 Level Cholesterol 147 Level LDL Cholesterol, 55 Calculated HDL Cholesterol 75 Cholesterol/HDL 1.9 Ratio Thyroid 0.960 Stimulating Hormone (TSH) White Blood 7.1 # Count Red Blood Count 3.04 L Hemoglobin 9.7 L Hematocrit 30.8 L Mean Corpuscular 101.3 H Volume Mean Corpuscular 31.9 Hemoglobin Mean Corpuscular 31.5 L Hemoglobin Suzanne nt Red Cell 15.0 H Distribution Width Platelet Count 239 Mean Platelet 10.7 H Volume Immature 0.400 Granulocytes % Neutrophils % 69.5 Lymphocytes % 17.6 Monocytes % 8.2 Eosinophils % 3.5 Basophils % 0.8 Nucleated Red 0.0 Blood Cells % Immature 0.030 Granulocytes # Neutrophils # 4.9 Lymphocytes # 1.2 Monocytes # 0.6 Eosinophils # 0.3 Basophils # 0.1 Nucleated Red 0.0 Blood Cells # Hemoglobin A1c 5.4 Blood Gas Blood arterial Specimen Source Arterial Blood 04/12/2018 9:10: Date Drawn 12 AM Arterial Blood 7.427 pH (Temp corrected) Arterial Blood 42.1 pCO2 (Temp correct) Arterial Blood 271.7 H pO2 (Temp corrected) Arterial Blood 27.1 H HCO3 Arterial Blood 2.5 Base Excess Arterial Blood 99.5 Oxygen Saturatio n [place] Test N/A Arterial Blood Right Brachial Gas Puncture Site Arterial 0 Blood Carboxyhem oglobin Arterial Blood 0.3 Methemoglobin Blood Gas A-a O2 182.1 H Differential Oxyhemoglobin 99.2 H Percent Blood Gas 37.0 Temperature Blood Gas 16.0 Respiration Rate Blood Gas Actual 16 Respiration Rate Blood Gas VENT - AC Modality FiO2 70.0 Blood Gas Tidal 500.0 Volume Blood Gas Low 5.0 PEEP Setting Blood Gas Jono ROOT Notified Whom Blood Gas 04/12/2018 9:24: Notified Time 02 AM Medications Medication Current Medications IV Flush (NS 3 ml) 3 ml PER PROTOCOL IV ; Start 04/11/18 at 18:30 Ondansetron HCl (Zofran Inj) 4 mg Q6H PRN IV NAUSEA/VOMITING; Start 04/11/18 at 18:30 Acetaminophen (Tylenol Tab) 650 mg Q6H PRN PO .PAIN 1-3 OR TEMP; Start 04/11/18 at 18:30 Acetaminophen/ Hydrocodone Bitart ([place] (5/325)) 1 tab Q6H PRN PO .MOD PAIN 4- 6; Start 04/11/18 at 18:30 Morphine Sulfate (morphine) 2 mg Q4H PRN IV .SEVERE PAIN 7-10 Last administered on 04/12/18at 11:13; Admin Dose 2 MG; Start 04/11/18 at 18:30 Docusate Sodium (Colace) 100 mg Q12H PRN PO .CONSTIPATION; Start 04/11/18 at 18:30 Magnesium Hydroxide (Milk Of Mag) 30 ml DAILY PRN PO .CONSTIPATION; Start 04/11/18 at 18:30 Heparin Sodium (Porcine) (Heparin (5000 Units/1ml)) 5,000 unit Q12 SC Last administered on 04/12/18at 08:52; Admin Dose 5,000 UNIT; Start 04/11/18 at 21:00 Lorazepam (Ativan) 0.5 mg Q6H PRN IV ANXIETY Last administered on 04/12/18at 11:57; Admin Dose 0.5 MG; Start 04/11/18 at 18:30 Albuterol/ Ipratropium (Duoneb) 3 ml Q4H RESP THERAPY PRN HHN SHORTNESS OF BREATH; Start 04/11/18 at 18:30 Hydralazine HCl (Apresoline) 10 mg Q6H PRN IV ELEVATED BLOOD PRESSURE; Start 04/11/18 at 18:30 Nitroglycerin (Nitroglycerin (Sl Tab) 0.4 Mg) 1 tab Q5M PRN SL ANGINA; Start 04/11/18 at 18:30 Allopurinol (Zyloprim) 100 mg DAILY GTB Last administered on 04/12/18at 08:42; Admin Dose 100 MG; Start 04/12/18 at 09:00 Ascorbic Acid (Vitamin C) 500 mg DAILY GTB Last administered on 04/12/18at 08:43; Admin Dose 500 MG; Start 04/12/18 at 09:00 Aspirin (Aspirin) 81 mg DAILY PO Last administered on 04/12/18at 08:47; Admin Dose 81 MG; Start 04/12/18 at 09:00 Atorvastatin Calcium (Lipitor) 20 mg QHS GTB Last administered on 04/11/18at 23:13; Admin Dose 20 MG; Start 04/11/18 at 21:00 Bisacodyl (Dulcolax Supp) 10 mg Q24H PRN [place] CONSTIPATION; Start 04/11/18 at 18:30 Chlorhexidine Gluconate (Peridex) 15 ml Q12 MM Last administered on 04/12/18 08:43; Admin Dose 15 ML; Start 04/11/18 at 23:00 Clopidogrel Bisulfate (plaVIX) 75 mg DAILY GTB Last administered on 04/12/18 08:43; Admin Dose 75 MG; Start 04/12/18 at 09:00 Duloxetine HCl (Cymbalta) 60 mg DAILY GTB Last administered on 04/12/18 08:43; Admin Dose 60 MG; Start 04/12/18 at 09:00 Famotidine (Pepcid) 20 mg DAILY GTB Last administered on 04/12/18 08:42; Admin Dose 20 MG; Start 04/12/18 at 09:00 Hydralazine HCl (Apresoline) 10 mg Q8 PRN GTB ELEVATED BLOOD PRESSURE; Start 04/11/18 at 18:30 Lamotrigine (Lamictal) 200 mg DAILY GTB Last administered on 04/12/18 08:47; Admin Dose 200 MG; Start 04/12/18 at 09:00 Levothyroxine Sodium (Synthroid) 25 mcg BEFORE BREAKFAST PO Last administered on 04/12/18 07:24; Admin Dose 25 MCG; Start 04/12/18 at 07:00 Magnesium Hydroxide (Milk Of Mag) 30 ml DAILY PRN GTB CONSTIPATION; Start 04/11/18 at 18:30 Mineral Oil (Fleet Mineral Oil Enema) 133 ml DAILY PRN [place] CONSTIPATION; Start 04/11/18 at 18:30 Montelukast Sodium (Singulair) 10 mg QHS GTB Last administered on 04/11/18 23:13; Admin Dose 10 MG; Start 04/11/18 at 21:00 Multivitamins Therapeutic (Theragran) 1 tab DAILY GTB Last administered on 04/12/18 08:47; Admin Dose 1 TAB; Start 04/12/18 at 09:00 Pramipexole (Mirapex) 0.5 mg HS GTB Last administered on 04/12/18 00:03; Admin Dose 0.5 MG; Start 04/11/18 at 21:00 Primidone (Mysoline) 250 mg QHS GTB Last administered on 04/11/18 23:56; Admin Dose 250 MG; Start 04/11/18 at 21:00 Sertraline HCl (Zoloft) 25 mg DAILY GTB Last administered on 04/12/18at 08:47; Admin Dose 25 MG; Start 04/12/18 at 09:00 Simethicone (Mylicon) 80 mg Q6H PRN GTB DISTENSION/GAS/BLOATING Last administered on 04/11/18at 23:20; Admin Dose 80 MG; Start 04/11/18 at 18:30 Lactobacillus Acidophilus (Florajen3 Capsule) 1 each BID PO Last administered on 04/12/18at 08:43; Admin Dose 1 EACH; Start 04/12/18 at 09:00 Tobramycin (Tobramycin Iv Per Pharmacy) TOBRAMYCIN PER PHARMACY NOTE XX ; Start 04/11/18 at 18:30 Alteplase, Recombinant (Cathflo (Activase)) 2 mg MAY REPEAT X1 PRN CATHETER IF CATHETER REMAINS OCCULUDED; Start 04/11/18 at 18:30 Vancomycin HCl (Vanco Iv Per Pharmacy) VANCOMYCIN PER PHARMACY PER PROTOCOL XX ; Start 04/11/18 at 19:30 Tobramycin 340 mg/ Dextrose 108.5 ml @ 108.5 mls/ hr Q36H IVPB ; Start 04/13/18 at 07:30; Status Future Hold Furosemide (Lasix) 40 mg DAILY IV Last administered on 04/12/18at 13:24; Admin Dose 40 MG; Start 04/12/18 at 13:00 Vancomycin/Sodium Chloride 250 ml @ 125 mls/hr Q12H IVPB ; Start 04/12/18 at 16:00 DELANO SALEEM NP Apr 12, 2018 14:48
[2018-04-12] MEDS: VANCOMYCIN 750 MG (PMX) 250 ML IVPB SCH (17:33)
--- NOTE | 2018-04-12 18:47 | CONS ---
DATE OF ADMISSION: 04/11/2018 DATE OF CONSULTATION: 04/12/2018 TYPE OF CONSULTATION: Infectious Disease. REASON FOR CONSULTATION: Antibiotic management. HISTORY OF PRESENT ILLNESS: Maribel Sin is a 77-year-old female who comes in with respiratory distr ess and is being seen for antibiotic management. Her past problems include: 1. Hypertension. 2. Hyperlipidemia. 3. Parkinson's disease. 4. Hypothyroidism. 5. Respiratory failure. 6. Ventilatory dependent respiratory failure, status post tracheostomy with recent admission for hea lthcare-acquired pneumonia secondary to Pseudomonas. She was discharged on 04/02/2018. She had severe sepsis. She also has history of seizures, atrial f ibrillation, non-STEMI, CHF, COPD, dementia, encephalopathy and GERD. She presents to the emergency room via rescue ambulance with shortness of breath and hypoxemia. She was in her usual state of heal th until 30 minutes prior to arrival when she developed acute respiratory distress with tachypnea and oxygen saturations dropping into the 80s. She came to the emergency room with a ventilation bag via tracheostomy. The patient is unable to provide any history due to her clinical condition. PAST MEDICAL PROBLEMS: As outlined. PAST SURGICAL PROBLEMS: Status post laparotomy, status post colonoscopy, status post tracheostomy. ALLERGIES: LEVAQUIN and REGADENOSON. FAMILY HISTORY: Noncontributory. SOCIAL HISTORY: She does not smoke, drink or abuse drugs. ALLERGIES: NONE TO PENICILLIN, SULFA OR FOODS. MEDICATIONS: Per chart. REVIEW OF SYSTEMS: As per HPI. LABORATORY DATA: On admission, her white count was 12.2, H and H 11.4 and 36.2, platelet count 285,0 00. BUN and creatinine 21/0.85, blood sugar 159. She has 87% neutrophils for marked shift to the le ft and she was started on vancomycin and ceftazidime as well as tobramycin in the emergency room eitan use of the history of Pseudomonas pneumonia. Chest x-ray shows stable tracheostomy. She has a left PICC line, development of an extensive left lower lobe infiltrate with small left pleural effusion. Mild pulmonary vascular congestion is suggested. Patient was admitted for hydration, antibiotic therapy and cultures were sent. Chest x-ray was posit shae for pneumonia. She was seen by Dr. Meng for worsening congestive cardiac failure and ventilat or dependent respiratory failure as well as possibility of Pseudomonas pneumonia. Patient appears so mewhat anxious, now tolerating diet recommendations. PHYSICAL EXAMINATION: GENERAL: She is lying in bed in no acute distress. VITAL SIGNS: Stable. SKIN: Without generalized rash. HEENT: Within normal limits. NECK: Tracheostomy in place. It is clean. No bleeding or leakage around the trach site. CHEST: Decreased breath sounds at the bases. HEART: Without murmur or gallop. ABDOMEN: Soft, nontender, without organosplenomegaly or masses. EXTREMITIES: Without cyanosis, clubbing. She has some trace pitting edema. RECTAL AND GENITAL: Deferred. NEUROLOGICAL: No focal neurological abnormalities. HOSPITAL COURSE: On the , today, white count is 7.1, H and H of 9.7 and 30.8, platelet count 239 ,000. BUN and creatinine 18/0.64. Urine culture is negative at 24 hours. She had blood cultures se nt, stool cultures, urine cultures and an MRSA screen. I do not see any culture of the sputum. She is currently on tobramycin 340 mg every 36 hours. She is on vancomycin. I think we will order some sputum cultures. I will dictate my findings to the hospitalist and to Dr. Meng. Dictated By: LEVI STARK MD, JD/JORY Conf#: [id number] DID#: [id number] CC: ARETHA OSUNA;*End*
[2018-04-12] MEDS ORDERED: TOBRAMYCIN 320 MG in SOD CHLORIDE 0.9% 100 ML IVPB SCH (20:00)
[2018-04-12] MEDS: MONTELUKAST 10 MG TAB GTB SCH (20:19)
[2018-04-12] MEDS: ATORVASTATIN 20 MG TAB GTB SCH (20:19)
[2018-04-12] MEDS ORDERED: VANCOMYCIN 1 GM 250 ML IVPB SCH (20:30)
[2018-04-12] MEDS: PRIMIDONE 250 MG TAB GTB SCH (20:54)
[2018-04-13] VITALS (24 sets, daily range): BP systolic 96–216; BP diastolic 58–190; PULSE 53–114; RESP 16–34
[2018-04-13] MEDS: LORAZEPAM 2 MG INJ IV PRN ×4 (03:40→20:16)
[2018-04-13] MEDS: VANCOMYCIN 750 MG (PMX) 250 ML IVPB SCH ×2 (03:48→16:47)
[2018-04-13] MEDS: LEVOTHYROXINE 25 MCG TAB PO SCH (06:29)
[2018-04-13] MEDS ORDERED: TOBRAMYCIN IVPB SCH (07:30)
[2018-04-13] MEDS ORDERED: DEXTROSE 5% IVPB SCH (07:30)
[2018-04-13] MEDS: SERTRALINE 50 MG TAB GTB SCH (09:00)
[2018-04-13] MEDS: L ACIDOPHIL/B LACTIS/B LONGUM CAPSULE PO SCH ×2 (09:00→21:00)
[2018-04-13] MEDS: ALLOPURINOL 100 MG TAB GTB SCH (09:00)
[2018-04-13] MEDS: ASPIRIN 81 MG TAB PO SCH (09:00)
[2018-04-13] MEDS: MULTIVITAMINS THERAPEUTIC TAB GTB SCH (09:00)
[2018-04-13] MEDS: HEPARIN 5,000 UNIT/1 ML VIAL SC SCH ×2 (09:00→22:04)
[2018-04-13] MEDS: LAMOTRIGINE 100 MG TAB GTB SCH (09:00)
[2018-04-13] MEDS: FAMOTIDINE 20 MG TAB GTB SCH (09:00)
[2018-04-13] MEDS: CLOPIDOGREL 75 MG TAB GTB SCH (09:00)
[2018-04-13] MEDS: ASCORBIC ACID 500 MG TAB GTB SCH (09:00)
[2018-04-13] MEDS: DULOXETINE 30 MG CAP DR GTB SCH (09:00)
[2018-04-13] MEDS: CHLORHEXIDINE GLUCONATE 15 ML UD CUP MM SCH ×2 (09:00→21:57)
[2018-04-13] MEDS: FUROSEMIDE 40 MG INJ IV SCH (09:30)
[2018-04-13] MEDS ORDERED: morphine 2 MG INJ IV STA (09:39)
[2018-04-13] MEDS ORDERED: LORAZEPAM 2 MG INJ IV STA (09:39)
[2018-04-13] MEDS ORDERED: morphine 2 MG INJ IV PRN (10:00)
--- NOTE | 2018-04-13 12:38 | CONS ---
Assessment/Plan Assessment/Plan Hospital Course (Demo Recall) ID NOTE CURRENT ABX: =>Tobramycin IV + Vanco IV 04/13/18 0511 04/13/18 0511 24H INTERVAL SUMMARY * Lethargic, VSS, looks comfortable on the Vent, non-communicative * Readmitted with SIRS vs early sepsis -- suspect PICC line vs HCAP = Hx of recent admission and treated for PSAR PNA * 04/12/18 CXR: IMPRESSION:Patchy bilateral alveolar infiltrates, left greater than right, are minimally improved. Minimal bilateral pleural effusions unchanged. * 04/13/18 CXR: IMPRESSION: Extensive interstitial and alveolar opacities bilaterally, most confluent in the left mid to basilar lung. Massive aspiration can have this imaging appearance. Asymmetric pulmonary edema, hemorrhage, infection and diffuse alveolar damage are not excluded. Recommend continued attention on follow-up radiographs with treatment. Mild right pleural effusion. MICRO * 04/12/18 (+)MRSA Nares * 04/12/18 RESP Cx (+) GNR RESPIRATORY CULTURE Preliminary Organism 1 GRAM NEGATIVE MACARIO QUANTITY 1+ * 04/11/18 URINE CX (-) * 04/11/18 BCX(-) * 03/30/2018 RESPIRATORY CULTURE Final Organism 1 PSEUDOMONAS AERUGINOSA QUANTITY 2+ PSEUDOMONAS AERUGINOSA IS MULTI DRUG RESISTANT ORGANISM P.AERUG P.AERUG M.I.C. RX M.I.C. RX --------- --- --------- --- AMIKACIN 8 S AZTREONAM I CEFEPIME 8 I CEFTAZIDIME 16 S CIPROFLOXACIN >=4 R GENTAMICIN 4 S LEVOFLOXACIN >=8 R MEROPENEM >32 R TOBRAMYCIN <=1 S PIPERACILLIN/TAZOBACTAM >=128 R PHYSICAL EXAMINATION: GENERAL: 76 yo F stable on the Vent, lethargic HEENT: AT, NC, anicteric NECK: Trach => Secure to Vent CHEST: Course BS HEART: RRR ABDOMEN: soft, peg EXT: Warm, mild edema x 4 extremities, skin rash upper-ext contact dermatitis under tape/Tegaderm SKIN: no RASH no diaphoresis ID ASSESSMENT: 76 yo F admit with: 1. SIRS w./transient early sepsis w/TMax [place] 100.3, HR 100 bpm, B/P 100/51 due to PICC sepsis vs PNA => RESOLVING * Urine cx (-) 48H * 04/11/18 BCx(-) 2 Chronic respiratory failure, ventilator dependent via tracheostomy 3. Ventilator / Aspiration associated pneumonia * (+)MRSA Nares * 04/12/18 RESP Cx (+) GNR * 03/30/2018 RESPIRATORY CULTURE Final Organism 1 PSEUDOMONAS AERUGINOSA QUANTITY 2+ PSEUDOMONAS AERUGINOSA IS MULTI DRUG RESISTANT ORGANISM 4. Hypertension with good control 5. Paroxysmal atrial fibrillation on Eliquis with good rate control 6. Hypothyroidism with good control 7. Chronic iron deficiency anemia on supplementation 8. Dyslipidemia 9. Morbid obesity 10. Adjustment disorder with depressed mood 12. Chronic dysphagia status post PEG tube placement, 13. PICC line w/local contact dermatitis/erythema/rash under plastic tape and Tegaderm -- monitor for superimposed cellulitis (+)MRSA Nares -> ADD Bactroban INVASIVES: PIV, Trach, Peg ABX ALLERGY: LEVAQUIN CURRENT ABX: =>Tobramycin IV + Vanco IV ID RECOMMENDATIONS/PLAN: 1. Continue current ABX -> Watch renal fx on this combo 2. Would she benefit from BRONCH? * 04/13/18 CXR: IMPRESSION: Extensive interstitial and alveolar opacities bilaterally, most confluent in the left mid to basilar lung. Massive aspiration can have this imaging appearance. Asymmetric pulmonary edema, hemorrhage, infection and diffuse alveolar damage are not excluded. Recommend continued attention on follow-up radiographs with treatment. . Consultation Date/Type/Reason Admit Date/Time Apr 11, 2018 at 17:11 Initial Consult Date Date/Time of Note DATE: 04/13/18 TIME: 12:29 Exam/Review of Systems Exam Vitals Vital Signs Date Temp Pulse Resp B/P (MAP) Pulse Ox O2 O2 Flow FiO2 Time Delivery Rate 04/13/18 98.0 83 21 156/72 99 Mechanical 11:27 (100) Ventilator Trach Collar 04/13/18 35 07:25 04/11/18 15 16:15 Intake and Output 04/12/18 04/12/18 04/13/18 1515:00 23:00 07:00 IntakeIntake Total 758 ml 600 ml BalanceBalance 758 ml 600 ml Results Result Diagram: 04/13/18 0511 04/13/18 0511 Results 24hrs Laboratory Tests Test 04/13/18 05:11 White Blood Count 6.4 Red Blood Count 2.81 L Hemoglobin 9.0 L Hematocrit 29.0 L Mean Corpuscular Volume 103.2 H Mean Corpuscular Hemoglobin 32.0 Mean Corpuscular Hemoglobin Concent 31.0 L Red Cell Distribution Width 14.7 H Platelet Count 221 Mean Platelet Volume 10.1 Immature Granulocytes % 0.200 Neutrophils % 73.3 Lymphocytes % 14.7 L Monocytes % 8.1 Eosinophils % 3.1 Basophils % 0.6 Nucleated Red Blood Cells % 0.0 Immature Granulocytes # 0.010 Neutrophils # 4.7 Lymphocytes # 0.9 Monocytes # 0.5 Eosinophils # 0.2 Basophils # 0.0 Nucleated Red Blood Cells # 0.0 Sodium Level 137 Potassium Level 3.6 Chloride Level 103 Carbon Dioxide Level 28 Anion Gap 6 Blood Urea Nitrogen 19 Creatinine 0.68 Est Glomerular Filtrat Rate mL/min Glucose Level 82 Calcium Level 8.4 Random Tobramycin Level 6.0 Medications Medication Current Medications IV Flush (NS 3 ml) 3 ml PER PROTOCOL IV ; Start 04/11/18 at 18:30 Ondansetron HCl (Zofran Inj) 4 mg Q6H PRN IV NAUSEA/VOMITING; Start 04/11/18 at 18:30 Acetaminophen (Tylenol Tab) 650 mg Q6H PRN PO .PAIN 1-3 OR TEMP; Start 04/11/18 at 18:30 Acetaminophen/ Hydrocodone Bitart ([place] (5/325)) 1 tab Q6H PRN PO .MOD PAIN 4- 6; Start 04/11/18 at 18:30 Morphine Sulfate (morphine) 2 mg Q4H PRN IV .SEVERE PAIN 7-10 Last administered on 04/12/18at 20:54; Admin Dose 2 MG; Start 04/11/18 at 18:30 Docusate Sodium (Colace) 100 mg Q12H PRN PO .CONSTIPATION; Start 04/11/18 at 18:30 Magnesium Hydroxide (Milk Of Mag) 30 ml DAILY PRN PO .CONSTIPATION; Start 04/11/18 at 18:30 Heparin Sodium (Porcine) (Heparin (5000 Units/1ml)) 5,000 unit Q12 SC Last administered on 04/12/18at 20:28; Admin Dose 5,000 UNIT; Start 04/11/18 at 21:00 Albuterol/ Ipratropium (Duoneb) 3 ml Q4H RESP THERAPY PRN HHN SHORTNESS OF BREATH; Start 04/11/18 at 18:30 Hydralazine HCl (Apresoline) 10 mg Q6H PRN IV ELEVATED BLOOD PRESSURE; Start 04/11/18 at 18:30 Nitroglycerin (Nitroglycerin (Sl Tab) 0.4 Mg) 1 tab Q5M PRN SL ANGINA; Start 04/11/18 at 18:30 Allopurinol (Zyloprim) 100 mg DAILY GTB Last administered on 04/12/18 08:42; Admin Dose 100 MG; Start 04/12/18 at 09:00 Ascorbic Acid (Vitamin C) 500 mg DAILY GTB Last administered on 04/12/18 08:43; Admin Dose 500 MG; Start 04/12/18 at 09:00 Aspirin (Aspirin) 81 mg DAILY PO Last administered on 04/12/18 08:47; Admin Dose 81 MG; Start 04/12/18 at 09:00 Atorvastatin Calcium (Lipitor) 20 mg QHS GTB Last administered on 04/12/18 20:19; Admin Dose 20 MG; Start 04/11/18 at 21:00 Bisacodyl (Dulcolax Supp) 10 mg Q24H PRN [place] CONSTIPATION; Start 04/11/18 at 18:30 Chlorhexidine Gluconate (Peridex) 15 ml Q12 MM Last administered on 04/12/18at 20:26; Admin Dose 15 ML; Start 04/11/18 at 23:00 Clopidogrel Bisulfate (plaVIX) 75 mg DAILY GTB Last administered on 04/12/18at 08:43; Admin Dose 75 MG; Start 04/12/18 at 09:00 Duloxetine HCl (Cymbalta) 60 mg DAILY GTB Last administered on 04/12/18at 08:43; Admin Dose 60 MG; Start 04/12/18 at 09:00 Famotidine (Pepcid) 20 mg DAILY GTB Last administered on 04/12/18at 08:42; Admin Dose 20 MG; Start 04/12/18 at 09:00 Hydralazine HCl (Apresoline) 10 mg Q8 PRN GTB ELEVATED BLOOD PRESSURE; Start 04/11/18 at 18:30 Lamotrigine (Lamictal) 200 mg DAILY GTB Last administered on 04/12/18 08:47; Admin Dose 200 MG; Start 04/12/18 at 09:00 Levothyroxine Sodium (Synthroid) 25 mcg BEFORE BREAKFAST PO Last administered on 04/13/18at 06:29; Admin Dose 25 MCG; Start 04/12/18 at 07:00 Magnesium Hydroxide (Milk Of Mag) 30 ml DAILY PRN GTB CONSTIPATION; Start 04/11 at 18:30 Mineral Oil (Fleet Mineral Oil Enema) 133 ml DAILY PRN [place] CONSTIPATION; Start 04/11/18 at 18:30 Montelukast Sodium (Singulair) 10 mg QHS GTB Last administered on 04/12/18 20:19; Admin Dose 10 MG; Start 04/11/18 at 21:00 Multivitamins Therapeutic (Theragran) 1 tab DAILY GTB Last administered on 04/12/18 08:47; Admin Dose 1 TAB; Start 04/12/18 at 09:00 Pramipexole (Mirapex) 0.5 mg HS GTB Last administered on 04/12/18 20:54; Admin Dose 0.5 MG; Start 04/11/18 at 21:00 Primidone (Mysoline) 250 mg QHS GTB Last administered on 04/12/18 20:54; Admin Dose 250 MG; Start 04/11/18 at 21:00 Sertraline HCl (Zoloft) 25 mg DAILY GTB Last administered on 04/12/18 08:47; Admin Dose 25 MG; Start 04/12/18 at 09:00 Simethicone (Mylicon) 80 mg Q6H PRN GTB DISTENSION/GAS/BLOATING Last ad ministered on 04/11/18at 23:20; Admin Dose 80 MG; Start 04/11/18 at 18:30 Lactobacillus Acidophilus (Florajen3 Capsule) 1 each BID PO Last administered on 04/12/18 20:19; Admin Dose 1 EACH; Start 04/12/18 at 09:00 Tobramycin (Tobramycin Iv Per Pharmacy) TOBRAMYCIN PER PHARMACY NOTE XX ; Start 04/11/18 at 18:30 Alteplase, Recombinant (Cathflo (Activase)) 2 mg MAY REPEAT X1 PRN CATHETER IF CATHETER REMAINS OCCULUDED; Start 04/11/18 at 18:30 Vancomycin HCl (Vanco Iv Per Pharmacy) VANCOMYCIN PER PHARMACY PER PROTOCOL XX ; Start 04/11/18 at 19:30 Furosemide (Lasix) 40 mg DAILY IV Last administered on 04/13/18at 09:30; Admin Dose 40 MG; Start 04/12/18 at 13:00 Vancomycin/Sodium Chloride 250 ml @ 125 mls/hr Q12H IVPB Last administered on 04/13/18at 03:48; Admin Dose 125 MLS/HR; Start 04/12/18 at 16:00 Tobramycin 320 mg/ Sodium Chloride 108 ml @ 108 mls/hr Q24H IVPB Last administered on 04/12/18at 20:24; Admin Dose 108 MLS/HR; Start 04/12/18 at 20:00 Lorazepam (Ativan) 1 mg Q4H PRN IV AGITATION/ANXIETY; Start 04/13/18 at 10:00 DELANO SALEEM NP Apr 13, 2018 12:38
--- NOTE | 2018-04-13 15:40 | CONS ---
Consult Date/Type/Reason Admit Date/Time Apr 11, 2018 at 17:11 Initial Consult Date Type of Consult Pulmonary Date/Time of Note DATE: 04/13/18 TIME: 15:37 Subjective Increased work of breathing earlier today. Stabilized with addition of Ativan and morphine. Objective Vital Signs Date Temp Pulse Resp B/P (MAP) Pulse Ox O2 O2 Flow FiO2 Time Delivery Rate 04/13/18 71 16 99 30 15:10 04/13/18 98.0 156/72 Mechanical 11:27 (100) Ventilator Trach Collar 04/11/18 15 16:15 Intake and Output 04/12/18 04/12/18 04/13/18 1515:00 23:00 07:00 IntakeIntake Total 758 ml 600 ml BalanceBalance 758 ml 600 ml Exam PHYSICAL EXAMINATION: GENERAL: Well-nourished, well-developed lady, comfortable at rest, no acute distress. Currently continues mechanical ventilation via tracheostomy. VITAL SIGNS: NECK: Trach site clean and intact. CARDIAC: S1, S2, no added sounds or murmurs. CHEST: Diminished air entry bilaterally. ABDOMEN: Soft, nontender. No guarding or rebound. EXTREMITIES: No cyanosis, clubbing or edema. NEUROLOGICAL: Grossly intact. No focal deficits. Vent Setting Ventilator Support Mode: AC Fraction of Inspired Oxygen pe: 30 Positive End Expiratory Pressu: 5.0 Results/Medications Result Diagram: 04/13/18 0511 04/13/18 0511 Results 24 hrs Laboratory Tests Test 04/13/18 05:11 White Blood Count 6.4 Red Blood Count 2.81 L Hemoglobin 9.0 L Hematocrit 29.0 L Mean Corpuscular Volume 103.2 H Mean Corpuscular Hemoglobin 32.0 Mean Corpuscular Hemoglobin Concent 31.0 L Red Cell Distribution Width 14.7 H Platelet Count 221 Mean Platelet Volume 10.1 Immature Granulocytes % 0.200 Neutrophils % 73.3 Lymphocytes % 14.7 L Monocytes % 8.1 Eosinophils % 3.1 Basophils % 0.6 Nucleated Red Blood Cells % 0.0 Immature Granulocytes # 0.010 Neutrophils # 4.7 Lymphocytes # 0.9 Monocytes # 0.5 Eosinophils # 0.2 Basophils # 0.0 Nucleated Red Blood Cells # 0.0 Sodium Level 137 Potassium Level 3.6 Chloride Level 103 Carbon Dioxide Level 28 Anion Gap 6 Blood Urea Nitrogen 19 Creatinine 0.68 Est Glomerular Filtrat Rate mL/min Glucose Level 82 Calcium Level 8.4 Random Tobramycin Level 6.0 Medications Current Medications IV Flush (NS 3 ml) 3 ml PER PROTOCOL IV ; Start 04/11/18 at 18:30 Ondansetron HCl (Zofran Inj) 4 mg Q6H PRN IV NAUSEA/VOMITING; Start 04/11/18 at 18:30 Acetaminophen (Tylenol Tab) 650 mg Q6H PRN PO .PAIN 1-3 OR TEMP; Start 04/11/18 at 18:30 Acetaminophen/ Hydrocodone Bitart ([place] (5/325)) 1 tab Q6H PRN PO .MOD PAIN 4- 6; Start 04/11/18 at 18:30 Morphine Sulfate (morphine) 2 mg Q4H PRN IV .SEVERE PAIN 7-10 Last administered on 04/12/18at 20:54; Admin Dose 2 MG; Start 04/11/18 at 18:30 Docusate Sodium (Colace) 100 mg Q12H PRN PO .CONSTIPATION; Start 04/11/18 at 18:30 Magnesium Hydroxide (Milk Of Mag) 30 ml DAILY PRN PO .CONSTIPATION; Start 04/11/18 at 18:30 Heparin Sodium (Porcine) (Heparin (5000 Units/1ml)) 5,000 unit Q12 SC Last administered on 04/12/18at 20:28; Admin Dose 5,000 UNIT; Start 04/11/18 at 21:00 Albuterol/ Ipratropium (Duoneb) 3 ml Q4H RESP THERAPY PRN HHN SHORTNESS OF BREATH; Start 04/11/18 at 18:30 Hydralazine HCl (Apresoline) 10 mg Q6H PRN IV ELEVATED BLOOD PRESSURE; Start 04/11/18 at 18:30 Nitroglycerin (Nitroglycerin (Sl Tab) 0.4 Mg) 1 tab Q5M PRN SL ANGINA; Start 04/11/18 at 18:30 Allopurinol (Zyloprim) 100 mg DAILY GTB Last administered on 04/12/18at 08:42; Admin Dose 100 MG; Start 04/12/18 at 09:00 Ascorbic Acid (Vitamin C) 500 mg DAILY GTB Last administered on 04/12/18at 08:43; Admin Dose 500 MG; Start 04/12/18 at 09:00 Aspirin (Aspirin) 81 mg DAILY PO Last administered on 04/12/18 08:47; Admin Dose 81 MG; Start 04/12/18 at 09:00 Atorvastatin Calcium (Lipitor) 20 mg QHS GTB Last administered on 04/12/18 20:19; Admin Dose 20 MG; Start 04/11/18 at 21:00 Bisacodyl (Dulcolax Supp) 10 mg Q24H PRN [place] CONSTIPATION; Start 04/11/18 at 18:30 Chlorhexidine Gluconate (Peridex) 15 ml Q12 MM Last administered on 04/12/18at 20:26; Admin Dose 15 ML; Start 04/11/18 at 23:00 Clopidogrel Bisulfate (plaVIX) 75 mg DAILY GTB Last administered on 04/12/18 08:43; Admin Dose 75 MG; Start 04/12/18 at 09:00 Duloxetine HCl (Cymbalta) 60 mg DAILY GTB Last administered on 04/12/18 08:43; Admin Dose 60 MG; Start 04/12/18 at 09:00 Famotidine (Pepcid) 20 mg DAILY GTB Last administered on 04/12/18at 08:42; Admin Dose 20 MG; Start 04/12/18 at 09:00 Hydralazine HCl (Apresoline) 10 mg Q8 PRN GTB ELEVATED BLOOD PRESSURE; Start 04/11/18 at 18:30 Lamotrigine (Lamictal) 200 mg DAILY GTB Last administered on 04/12/18at 08:47; Admin Dose 200 MG; Start 04/12/18 at 09:00 Levothyroxine Sodium (Synthroid) 25 mcg BEFORE BREAKFAST PO Last administered on 04/13/18at 06:29; Admin Dose 25 MCG; Start 04/12/18 at 07:00 Magnesium Hydroxide (Milk Of Mag) 30 ml DAILY PRN GTB CONSTIPATION; Start 04/11/18 at 18:30 Mineral Oil (Fleet Mineral Oil Enema) 133 ml DAILY PRN [place] CONSTIPATION; Start 04/11/18 at 18:30 Montelukast Sodium (Singulair) 10 mg QHS GTB Last administered on 04/12/18 20:19; Admin Dose 10 MG; Start 04/11/18 at 21:00 Multivitamins Therapeutic (Theragran) 1 tab DAILY GTB Last administered on 04/12/18 08:47; Admin Dose 1 TAB; Start 04/12/18 at 09:00 Pramipexole (Mirapex) 0.5 mg HS GTB Last administered on 04/12/18 20:54; Admin Dose 0.5 MG; Start 04/11/18 at 21:00 Primidone (Mysoline) 250 mg QHS GTB Last administered on 04/12/18 20:54; Admin Dose 250 MG; Start 04/11/18 at 21:00 Sertraline HCl (Zoloft) 25 mg DAILY GTB Last administered on 04/12/18 08:47; Admin Dose 25 MG; Start 04/12/18 at 09:00 Simethicone (Mylicon) 80 mg Q6H PRN GTB DISTENSION/GAS/BLOATING Last administered on 04/11/18 23:20; Admin Dose 80 MG; Start 04/11/18 at 18:30 Lactobacillus Acidophilus (Florajen3 Capsule) 1 each BID PO Last administered on 04/12/18 20:19; Admin Dose 1 EACH; Start 04/12/18 at 09:00 Tobramycin (Tobramycin Iv Per Pharmacy) TOBRAMYCIN PER PHARMACY NOTE XX ; Start 04/11/18 at 18:30 Alteplase, Recombinant (Cathflo (Activase)) 2 mg MAY REPEAT X1 PRN CATHETER IF CATHETER REMAINS OCCULUDED; Start 04/11/18 at 18:30 Vancomycin HCl (Vanco Iv Per Pharmacy) VANCOMYCIN PER PHARMACY PER PROTOCOL XX ; Start 04/11/18 at 19:30 Furosemide (Lasix) 40 mg DAILY IV Last administered on 04/13/18at 09:30; Admin Dose 40 MG; Start 04/12/18 at 13:00 Vancomycin/Sodium Chloride 250 ml @ 125 mls/hr Q12H IVPB Last administered on 04/13/18at 03:48; Admin Dose 125 MLS/HR; Start 04/12/18 at 16:00 Lorazepam (Ativan) 1 mg Q4H PRN IV AGITATION/ANXIETY Last administered on at 14:39; Admin Dose 1 MG; Start 04/13/18 at 10:00 Miscellaneous Information (*Rx Drug Level Order Reminder*) VANCO TROUGH @ 0,300 ON... ONCE ONCE XX ; Start 04/14/18 at 03:00; Stop 04/14/18 at 03:01 Tobramycin 320 mg/ Sodium Chloride 108 ml @ 108 mls/hr Q36H IVPB ; Start 04/14/18 at 10:00 Assessment/Plan Hospital Course (Demo Recall) IMPRESSION 1. Likely worsening congestive cardiac failure. Possible worsening aspiration. Would keep NPO and start TF until resp status improves 2. Vent dependent respiratory failure. 3. History of chronic obstructive pulmonary disease. 4. History of coronary artery disease. 5. Hypothyroidism. Plan 1. Short course of antibiotics. 2. Diuretics. 3. Vent support. 4. DVT and GI prophylaxis. 5. Mendez culture.NPO except meds. Start tube feeds 6. Guerra eval. MARCOS LEIVA MD, [facility] Apr 13, 2018 15:40
--- NOTE | 2018-04-13 16:07 | PN ---
Date/Time of Note Date/Time of Note DATE: 04/13/18 TIME: 16:05 Assessment/Plan VTE Prophylaxis Risk score (from Ns)>0 risk: 10 SCD applied (from Nsg): Yes Pharmacological prophylaxis: heparin Lines/Catheters IV Catheter Type (from Nrsg): PICC Line Central line still needed: Yes Urinary Cath still in place: No Assessment/Plan Assessment/Plan 77-year-old female coming in with shortness of breath and hypoxia, signs of respiratory distress with findings of pneumonia on chest x-ray, possibly secondary to Pseudomonas. 1. Respiratory distress again with hypoxia and shortness of breath-white blood cell count improved chest x-ray findings positive for pneumonia. -Based on prior sensitivities she had drawn here, for now continue tobramycin IV -Follow-up recommendations from infectious disease consult and pulmonary consult. -Follow-up PT/OT consults and consider speech therapy consult recommendations - Continue Singulair, DuoNeb p.r.n. 2. Hypothyroidism. Follow up thyroid panel. Continue Synthroid. 3. History of chronic obstructive pulmonary disease. Continue DuoNeb p.r.n. 4. History of congestive heart failure. Again, her last echocardiogram was performed on 03/31/2018. At that time, it showed ejection fraction 45%, normal left ventricular cavity size, mild global left ventricular systolic dysfunction, -Consider restarting Lasix now 5. History of seizure disorder. No present issues. Continue to monitor for now. Ativan p.r.n. 6. History of ali-FT-inrtyblqk myocardial infarction. No present issues. Continue with current cardiac medications, aspirin and Plavix. 7. History of dementia. Again, continue to monitor for now. 8. Atrial fibrillation. We will monitor on telemetry floor for now. Appears to be rate controlled at this point. 9. History of gastroesophageal reflux disease. Continue H2 brandy. 10. Deep venous thrombosis prophylaxis. Heparin subcutaneously. Result Diagram: 04/13/1811 04/13/1811 Results 24hrs Laboratory Tests Test 04/13/18 05:11 White Blood Count 6.4 Red Blood Count 2.81 L Hemoglobin 9.0 L Hematocrit 29.0 L Mean Corpuscular Volume 103.2 H Mean Corpuscular Hemoglobin 32.0 Mean Corpuscular Hemoglobin Concent 31.0 L Red Cell Distribution Width 14.7 H Platelet Count 221 Mean Platelet Volume 10.1 Immature Granulocytes % 0.200 Neutrophils % 73.3 Lymphocytes % 14.7 L Monocytes % 8.1 Eosinophils % 3.1 Basophils % 0.6 Nucleated Red Blood Cells % 0.0 Immature Granulocytes # 0.010 Neutrophils # 4.7 Lymphocytes # 0.9 Monocytes # 0.5 Eosinophils # 0.2 Basophils # 0.0 Nucleated Red Blood Cells # 0.0 Sodium Level 137 Potassium Level 3.6 Chloride Level 103 Carbon Dioxide Level 28 Anion Gap 6 Blood Urea Nitrogen 19 Creatinine 0.68 Est Glomerular Filtrat Rate mL/min Glucose Level 82 Calcium Level 8.4 Random Tobramycin Level 6.0 Subjective 24 Hr Interval Summary Free Text/Dictation Patient intermittently agitated, required morphine and Ativan twice today. On my exam she is awake but confused; trying to speak, unable to write paper. Exam/Review of Systems Exam Vitals Vital Signs Date Temp Pulse Resp B/P (MAP) Pulse Ox O2 O2 Flow FiO2 Time Delivery Rate 04/13/18 71 16 99 30 15:10 04/13/18 98.0 156/72 Mechanical 11:27 (100) Ventilator Trach Collar 04/11/18 15 16:15 Intake and Output 04/12/18 04/12/18 04/13/18 1414:59 22:59 06:59 IntakeIntake Total 758 ml 600 ml BalanceBalance 758 ml 600 ml Exam GENERAL: lying in bed, no acute distress. HEENT: Pupils equal, round, reactive to light. Extraocular muscles intact. NECK: Trach in place. No signs of any bleeding or leakage around the trach si te, connected to mechanical ventilation. LUNGS: Slightly distant breath sounds bilaterally. CARDIOVASCULAR: S1, S2 heard. No rubs or gallops. ABDOMEN: Soft, nontender, nondistended. Normal bowel sounds. No rebound or guarding. MUSCULOSKELETAL: Trace pitting edema, bilateral lower extremities to the mid calves. NEUROLOGIC: no apparent focal deficits Results Results 24hrs Laboratory Tests Test 04/13/18 05:11 White Blood Count 6.4 Red Blood Count 2.81 L Hemoglobin 9.0 L Hematocrit 29.0 L Mean Corpuscular Volume 103.2 H Mean Corpuscular Hemoglobin 32.0 Mean Corpuscular Hemoglobin Concent 31.0 L Red Cell Distribution Width 14.7 H Platelet Count 221 Mean Platelet Volume 10.1 Immature Granulocytes % 0.200 Neutrophils % 73.3 Lymphocytes % 14.7 L Monocytes % 8.1 Eosinophils % 3.1 Basophils % 0.6 Nucleated Red Blood Cells % 0.0 Immature Granulocytes # 0.010 Neutrophils # 4.7 Lymphocytes # 0.9 Monocytes # 0.5 Eosinophils # 0.2 Basophils # 0.0 Nucleated Red Blood Cells # 0.0 Sodium Level 137 Potassium Level 3.6 Chloride Level 103 Carbon Dioxide Level 28 Anion Gap 6 Blood Urea Nitrogen 19 Creatinine 0.68 Est Glomerular Filtrat Rate mL/min Glucose Level 82 Calcium Level 8.4 Random Tobramycin Level 6.0 Medications Medication Current Medications IV Flush (NS 3 ml) 3 ml PER PROTOCOL IV ; Start 04/11/18 at 18:30 Ondansetron HCl (Zofran Inj) 4 mg Q6H PRN IV NAUSEA/VOMITING; Start 04/11/18 at 18:30 Acetaminophen (Tylenol Tab) 650 mg Q6H PRN PO .PAIN 1-3 OR TEMP; Start 04/11/18 at 18:30 Acetaminophen/ Hydrocodone Bitart ([place] (5/325)) 1 tab Q6H PRN PO .MOD PAIN 4- 6; Start 04/11/18 at 18:30 Morphine Sulfate (morphine) 2 mg Q4H PRN IV .SEVERE PAIN 7-10 Last administered on 04/12/18at 20:54; Admin Dose 2 MG; Start 04/11/18 at 18:30 Docusate Sodium (Colace) 100 mg Q12H PRN PO .CONSTIPATION; Start 04/11/18 at 18:30 Magnesium Hydroxide (Milk Of Mag) 30 ml DAILY PRN PO .CONSTIPATION; Start 04/11/18 at 18:30 Heparin Sodium (Porcine) (Heparin (5000 Units/1ml)) 5,000 unit Q12 SC Last administered on 04/12/18at 20:28; Admin Dose 5,000 UNIT; Start 04/11/18 at 21:00 Albuterol/ Ipratropium (Duoneb) 3 ml Q4H RESP THERAPY PRN HHN SHORTNESS OF BREATH; Start 04/11/18 at 18:30 Hydralazine HCl (Apresoline) 10 mg Q6H PRN IV ELEVATED BLOOD PRESSURE; Start 04/11/18 at 18:30 Nitroglycerin (Nitroglycerin (Sl Tab) 0.4 Mg) 1 tab Q5M PRN SL ANGINA; Start 04/11/18 at 18:30 Allopurinol (Zyloprim) 100 mg DAILY GTB Last administered on 04/12/18 08:42; Admin Dose 100 MG; Start 04/12/18 at 09:00 Ascorbic Acid (Vitamin C) 500 mg DAILY GTB Last administered on 04/12/18 08:43; Admin Dose 500 MG; Start 04/12/18 at 09:00 Aspirin (Aspirin) 81 mg DAILY PO Last administered on 04/12/18 08:47; Admin Dose 81 MG; Start 04/12/18 at 09:00 Atorvastatin Calcium (Lipitor) 20 mg QHS GTB Last administered on 04/12/18 20:19; Admin Dose 20 MG; Start 04/11/18 at 21:00 Bisacodyl (Dulcolax Supp) 10 mg Q24H PRN NE CONSTIPATION; Start 04/11/18 at 18 :30 Chlorhexidine Gluconate (Peridex) 15 ml Q12 MM Last administered on 04/12/18 20:26; Admin Dose 15 ML; Start 04/11/18 at 23:00 Clopidogrel Bisulfate (plaVIX) 75 mg DAILY GTB Last administered on 04/12/18 08:43; Admin Dose 75 MG; Start 04/12/18 at 09:00 Duloxetine HCl (Cymbalta) 60 mg DAILY GTB Last administered on 04/12/18 08:43; Admin Dose 60 MG; Start 04/12/18 at 09:00 Famotidine (Pepcid) 20 mg DAILY GTB Last administered on 04/12/18 08:42; Admin Dose 20 MG; Start 04/12/18 at 09:00 Hydralazine HCl (Apresoline) 10 mg Q8 PRN GTB ELEVATED BLOOD PRESSURE; Start 04/11/18 at 18:30 Lamotrigine (Lamictal) 200 mg DAILY GTB Last administered on 04/12/18 08:47; Admin Dose 200 MG; Start 04/12/18 at 09:00 Levothyroxine Sodium (Synthroid) 25 mcg BEFORE BREAKFAST PO Last administered on 04/13/18at 06:29; Admin Dose 25 MCG; Start 04/12/18 at 07:00 Magnesium Hydroxide (Milk Of Mag) 30 ml DAILY PRN GTB CONSTIPATION; Start 04/11/18 at 18:30 Mineral Oil (Fleet Mineral Oil Enema) 133 ml DAILY PRN [place] CONSTIPATION; Start 04/11/18 at 18:30 Montelukast Sodium (Singulair) 10 mg QHS GTB Last administered on 04/12/18 20:19; Admin Dose 10 MG; Start 04/11/18 at 21:00 Multivitamins Therapeutic (Theragran) 1 tab DAILY GTB Last administered on 04/12/18at 08:47; Admin Dose 1 TAB; Start 04/12/18 at 09:00 Pramipexole (Mirapex) 0.5 mg HS GTB Last administered on 04/12/18 20:54; Admin Dose 0.5 MG; Start 04/11/18 at 21:00 Primidone (Mysoline) 250 mg QHS GTB Last administered on 04/12/18 20:54; Admin Dose 250 MG; Start 04/11/18 at 21:00 Sertraline HCl (Zoloft) 25 mg DAILY GTB Last administered on 04/12/18at 08:47; Admin Dose 25 MG; Start 04/12/18 at 09:00 Simethicone (Mylicon) 80 mg Q6H PRN GTB DISTENSION/GAS/BLOATING Last administered on 04/11/18at 23:20; Admin Dose 80 MG; Start 04/11/18 at 18:30 Lactobacillus Acidophilus (Florajen3 Capsule) 1 each BID PO Last administered on 04/12/18 20:19; Admin Dose 1 EACH; Start 04/12/18 at 09:00 Tobramycin (Tobramycin Iv Per Pharmacy) TOBRAMYCIN PER PHARMACY NOTE XX ; Start 04/11/18 at 18:30 Alteplase, Recombinant (Cathflo (Activase)) 2 mg MAY REPEAT X1 PRN CATHETER IF CATHETER REMAINS OCCULUDED; Start 04/11/18 at 18:30 Vancomycin HCl (Vanco Iv Per Pharmacy) VANCOMYCIN PER PHARMACY PER PROTOCOL XX ; Start 04/11/18 at 19:30 Furosemide (Lasix) 40 mg DAILY IV Last administered on 04/13/18at 09:30; Admin Dose 40 MG; Start 04/12/18 at 13:00 Vancomycin/Sodium Chloride 250 ml @ 125 mls/hr Q12H IVPB Last administered on 04/13/18at 03:48; Admin Dose 125 MLS/HR; Start 04/12/18 at 16:00 Lorazepam (Ativan) 1 mg Q4H PRN IV AGITATION/ANXIETY Last administered on 04/13/18at 14:39; Admin Dose 1 MG; Start 04/13/18 at 10:00 Miscellaneous Information (*Rx Drug Level Order Reminder*) VANCO TROUGH @ 0,300 ON... ONCE ONCE XX ; Start 04/14/18 at 03:00; Stop 04/14/18 at 03:01 Tobramycin 320 mg/ Sodium Chloride 108 ml @ 108 mls/hr Q36H IVPB ; Start 04/14/18 at 10:00 MERLY GAYLE MD Apr 13, 2018 16:06
[2018-04-13] MEDS: hydrALAzine 20 MG INJ IV PRN (20:18)
[2018-04-13] MEDS ORDERED: ENALAPRILAT 1.25 MG INJ IV ONE (20:30)
[2018-04-13] MEDS: PRIMIDONE 250 MG TAB GTB SCH (21:00)
[2018-04-13] MEDS: PRAMIPEXOLE 0.25 MG TAB GTB SCH (21:00)
[2018-04-13] MEDS: MONTELUKAST 10 MG TAB GTB SCH (21:00)
[2018-04-13] MEDS: ATORVASTATIN 20 MG TAB GTB SCH (21:00)
[2018-04-14] VITALS (24 sets, daily range): BP systolic 121–157; BP diastolic 68–108; PULSE 67–118; RESP 16–23
[2018-04-14] MEDS: LORAZEPAM 2 MG INJ IV PRN ×4 (01:46→21:40)
[2018-04-14] MEDS: ALBUTEROL/IPRATROPIUM (NEB) 3 ML AMP HHN PRN (02:14)
[2018-04-14] MEDS: VANCOMYCIN 750 MG (PMX) 250 ML IVPB SCH (04:19)
[2018-04-14] MEDS: LEVOTHYROXINE 25 MCG TAB PO SCH (07:00)
[2018-04-14] MEDS: CLOPIDOGREL 75 MG TAB GTB SCH (09:45)
[2018-04-14] MEDS: L ACIDOPHIL/B LACTIS/B LONGUM CAPSULE PO SCH ×2 (09:45→21:28)
[2018-04-14] MEDS: CHLORHEXIDINE GLUCONATE 15 ML UD CUP MM SCH ×2 (09:45→21:28)
[2018-04-14] MEDS: LAMOTRIGINE 100 MG TAB GTB SCH (09:45)
[2018-04-14] MEDS: ASPIRIN 81 MG TAB PO SCH (09:45)
[2018-04-14] MEDS: ALLOPURINOL 100 MG TAB GTB SCH (09:45)
[2018-04-14] MEDS: FUROSEMIDE 40 MG INJ IV SCH (09:45)
[2018-04-14] MEDS: ASCORBIC ACID 500 MG TAB GTB SCH (09:46)
[2018-04-14] MEDS: SERTRALINE 50 MG TAB GTB SCH (09:46)
[2018-04-14] MEDS: DULOXETINE 30 MG CAP DR GTB SCH (09:46)
[2018-04-14] MEDS: FAMOTIDINE 20 MG TAB GTB SCH (09:46)
[2018-04-14] MEDS: MULTIVITAMINS THERAPEUTIC TAB GTB SCH (09:46)
[2018-04-14] MEDS ORDERED: TOBRAMYCIN 320 MG in SOD CHLORIDE 0.9% 100 ML IVPB SCH (10:00)
[2018-04-14] MEDS: HEPARIN 5,000 UNIT/1 ML VIAL SC SCH ×2 (10:17→21:52)
[2018-04-14] MEDS ORDERED: VITAMIN A & D 5 GM OINT PACKET TOP ONE (10:37)
--- NOTE | 2018-04-14 12:49 | CONS ---
Assessment/Plan Assessment/Plan Hospital Course (Demo Recall) ID NOTE CURRENT ABX: =>Tobramycin IV + Vanco IV 04/14/18 0249 04/14/18 0249 24H INTERVAL SUMMARY * More alert/awake -- responsive w/pleasant affect -- feeling much better, VSS, able to communication mouthing words and writing. * Readmitted with SIRS vs early sepsis -- suspect PICC line vs HCAP = Hx of recent admission and treated for PSAR PNA * 04/12/18 CXR: IMPRESSION:Patchy bilateral alveolar infiltrates, left greater than right, are minimally improved. Minimal bilateral pleural effusions unchanged. * 04/13/18 CXR: IMPRESSION: Extensive interstitial and alveolar opacities bilaterally, most confluent in the left mid to basilar lung. Massive aspiration can have this imaging appearance. Asymmetric pulmonary edema, hemorrhage, infection and diffuse alveolar damage are not excluded. Recommend continued attention on follow-up radiographs with treatment. Mild right pleural effusion. * 04/14/18 CXR: IMPRESSION:1. Cardiomegaly and central pulmonary vascular congestion. Patchy right upper lobe and bilateral lower lobe infiltrates a nd bilateral pleural effusions, left greater than right. MICRO * 04/12/18 (+)MRSA Nares * 04/12/18 RESP Cx (+) GNR RESPIRATORY CULTURE Preliminary Organism 1 PSEUDOMONAS SPECIES QUANTITY 1+ Organism 2 GRAM NEGATIVE MACARIO QUANTITY 1+ * 04/11/18 URINE CX (-) * 04/11/18 BCX(-) * 03/30/2018 RESPIRATORY CULTURE Final Organism 1 PSEUDOMONAS AERUGINOSA QUANTITY 2+ PSEUDOMONAS AERUGINOSA IS MULTI DRUG RESISTANT ORGANISM P.AERUG P.AERUG M.I.C. RX M.I.C. RX --------- --- --------- --- AMIKACIN 8 S AZTREONAM I CEFEPIME 8 I CEFTAZIDIME 16 S CIPROFLOXACIN >=4 R GENTAMICIN 4 S LEVOFLOXACIN >=8 R MEROPENEM >32 R TOBRAMYCIN <=1 S PIPERACILLIN/TAZOBACTAM >=128 R PHYSICAL EXAMINATION: GENERAL: 76 yo F stable on the Vent, lethargic HEENT: AT, NC, anicteric NECK: Trach => Secure to Vent CHEST: Course BS HEART: RRR ABDOMEN: soft, peg EXT: Warm, mild edema x 4 extremities, skin rash upper-ext contact dermatitis under tape/Tegaderm SKIN: no RASH no diaphoresis ID ASSESSMENT: 76 yo F admit with: 1. SIRS w./transient early sepsis w/TMax IA 100.3, HR 100 bpm, B/P 100/51 due to PICC sepsis vs PNA => RESOLVING * Urine cx (-) 48H * 04/11/18 BCx(-) 2 Chronic respiratory failure, ventilator dependent via tracheostomy 3. Ventilator / Aspiration associated pneumonia * (+)MRSA Nares * 04/12/18 RESP Cx (+) GNR RESPIRATORY CULTURE Preliminary Organism 1 PSEUDOMONAS SPECIES = MULTI DRUG RESISTANT ORGANISM Organism 2 GRAM NEGATIVE RODS 4. Hypertension with good control 5. Paroxysmal atrial fibrillation on Eliquis with good rate control 6. Hypothyroidism with good control 7. Chronic iron deficiency anemia on supplementation 8. Dyslipidemia 9. Morbid obesity 10. Adjustment disorder with depressed mood 12. Chronic dysphagia status post PEG tube placement, 13. PICC line w/local contact dermatitis/erythema/rash under plastic tape and Tegaderm -- monitor for superimposed cellulitis (+)MRSA Nares ->Bactroban INVASIVES: PIV, Trach, Peg ABX ALLERGY: LEVAQUIN CURRENT ABX: =>Tobramycin IV + Vanco IV ID RECOMMENDATIONS/PLAN: 1. Continue Tobra, change Vanco IV to Doxy for MRSA decolonization attempt 2. Awaiting final ID of GNR #2 new pathogen growing in respiratory cx . Consultation Date/Type/Reason Admit Date/Time Apr 11, 2018 at 17:11 Initial Consult Date Date/Time of Note DATE: 04/14/18 TIME: 12:42 Exam/Review of Systems Exam Vitals Vital Signs Date Temp Pulse Resp B/P (MAP) Pulse Ox O2 O2 Flow FiO2 Time Delivery Rate 04/14/18 98.2 97 16 157/79 99 Mechanical 11:49 (105) Ventilator 04/14/18 35 05:50 04/11/18 15 16:15 Intake and Output 04/13/18 04/13/18 04/14/18 1515:00 23:00 07:00 IntakeIntake Total 320 ml 250 ml BalanceBalance 320 ml 250 ml Results Result Diagram: 04/14/18 0249 04/14/18 0249 Results 24hrs Laboratory Tests Test 04/14/18 02:49 White Blood Count 7.1 Red Blood Count 3.04 L Hemoglobin 9.6 L Hematocrit 30.6 L Mean Corpuscular Volume 100.7 Mean Corpuscular Hemoglobin 31.6 Mean Corpuscular Hemoglobin Concent 31.4 L Red Cell Distribution Width 14.6 H Platelet Count 238 Mean Platelet Volume 9.8 Immature Granulocytes % 0.400 Neutrophils % 80.2 H Lymphocytes % 9.9 L Monocytes % 8.6 Eosinophils % 0.3 Basophils % 0.6 Nucleated Red Blood Cells % 0.0 Immature Granulocytes # 0.030 Neutrophils # 5.7 Lymphocytes # 0.7 L Monocytes # 0.6 Eosinophils # 0.0 Basophils # 0.0 Nucleated Red Blood Cells # 0.0 Sodium Level 139 Potassium Level 3.1 L Chloride Level 104 Carbon Dioxide Level 27 Anion Gap 8 Blood Urea Nitrogen 17 Creatinine 0.56 Est Glomerular Filtrat Rate mL/min Glucose Level 81 Calcium Level 8.8 Vancomycin Level Trough 12.2 Medications Medication Current Medications IV Flush (NS 3 ml) 3 ml PER PROTOCOL IV ; Start 04/11/18 at 18:30 Ondansetron HCl (Zofran Inj) 4 mg Q6H PRN IV NAUSEA/VOMITING; Start 04/11/18 at 18:30 Acetaminophen (Tylenol Tab) 650 mg Q6H PRN PO .PAIN 1-3 OR TEMP; Start 04/11/18 at 18:30 Acetaminophen/ Hydrocodone Bitart ([place] (5/325)) 1 tab Q6H PRN PO .MOD PAIN 4- 6; Start 04/11/18 at 18:30 Morphine Sulfate (morphine) 2 mg Q4H PRN IV .SEVERE PAIN 7-10 Last administered on 04/12/18at 20:54; Admin Dose 2 MG; Start 04/11/18 at 18:30 Docusate Sodium (Colace) 100 mg Q12H PRN PO .CONSTIPATION; Start 04/11/18 at 18:30 Magnesium Hydroxide (Milk Of Mag) 30 ml DAILY PRN PO .CONSTIPATION; Start 04/11/18 at 18:30 Heparin Sodium (Porcine) (Heparin (5000 Units/1ml)) 5,000 unit Q12 SC Last administered on 04/14/18at 10:17; Admin Dose 5,000 UNIT; Start 04/11/18 at 21:00 Albuterol/ Ipratropium (Duoneb) 3 ml Q4H RESP THERAPY PRN HHN SHORTNESS OF BREATH Last administered on 04/14/18 02:14; Admin Dose 3 ML; Start 04/11/18 at 18:30 Hydralazine HCl (Apresoline) 10 mg Q6H PRN IV ELEVATED BLOOD PRESSURE Last administered on 04/13/18 20:18; Admin Dose 10 MG; Start 04/11/18 at 18:30 Nitroglycerin (Nitroglycerin (Sl Tab) 0.4 Mg) 1 tab Q5M PRN SL ANGINA; Start 04/11/18 at 18:30 Allopurinol (Zyloprim) 100 mg DAILY GTB Last administered on 04/14/18 09:45; Admin Dose 100 MG; Start 04/12/18 at 09:00 Ascorbic Acid (Vitamin C) 500 mg DAILY GTB Last administered on 04/14/18 09:46; Admin Dose 500 MG; Start 04/12/18 at 09:00 Aspirin (Aspirin) 81 mg DAILY PO Last administered on 04/14/18 09:45; Admin Dose 81 MG; Start 04/12/18 at 09:00 Atorvastatin Calcium (Lipitor) 20 mg QHS GTB Last administered on 04/12/18 20:19; Admin Dose 20 MG; Start 04/11/18 at 21:00 Bisacodyl (Dulcolax Supp) 10 mg Q24H PRN [place] CONSTIPATION; Start 04/11/18 at 18:30 Chlorhexidine Gluconate (Peridex) 15 ml Q12 MM Last administered on 04/14/18 09:45; Admin Dose 15 ML; Start 04/11/18 at 23:00 Clopidogrel Bisulfate (plaVIX) 75 mg DAILY GTB Last administered on 04/14/18 09:45; Admin Dose 75 MG; Start 04/12/18 at 09:00 Duloxetine HCl (Cymbalta) 60 mg DAILY GTB Last administered on 04/14/18 09:46; Admin Dose 60 MG; Start 04/12/18 at 09:00 Famotidine (Pepcid) 20 mg DAILY GTB Last administered on 04/14/18 09:46; Admin Dose 20 MG; Start 04/12/18 at 09:00 Hydralazine HCl (Apresoline) 10 mg Q8 PRN GTB ELEVATED BLOOD PRESSURE; Start 04/11/18 at 18:30 Lamotrigine (Lamictal) 200 mg DAILY GTB Last administered on 04/14/18 09:45; Admin Dose 200 MG; Start 04/12/18 at 09:00 Levothyroxine Sodium (Synthroid) 25 mcg BEFORE BREAKFAST PO Last administered on 04/13/18 06:29; Admin Dose 25 MCG; Start 04/12/18 at 07:00 Magnesium Hydroxide (Milk Of Mag) 30 ml DAILY PRN GTB CONSTIPATION; Start 04/11/18 at 18:30 Mineral Oil (Fleet Mineral Oil Enema) 133 ml DAILY PRN [place] CONSTIPATION; Start 04/11/18 at 18:30 Montelukast Sodium (Singulair) 10 mg QHS GTB Last administered on 04/12/18 20: 19; Admin Dose 10 MG; Start 04/11/18 at 21:00 Multivitamins Therapeutic (Theragran) 1 tab DAILY GTB Last administered on 04/14/18 09:46; Admin Dose 1 TAB; Start 04/12/18 at 09:00 Pramipexole (Mirapex) 0.5 mg HS GTB Last administered on 04/12/18 20:54; Admin Dose 0.5 MG; Start 04/11/18 at 21:00 Primidone (Mysoline) 250 mg QHS GTB Last administered on 04/12/18 20:54; Admin Dose 250 MG; Start 04/11/18 at 21:00 Sertraline HCl (Zoloft) 25 mg DAILY GTB Last administered on 04/14/18 09:46; Admin Dose 25 MG; Start 04/12/18 at 09:00 Simethicone (Mylicon) 80 mg Q6H PRN GTB DISTENSION/GAS/BLOATING Last administered on 04/11/18 23:20; Admin Dose 80 MG; Start 04/11/18 at 18:30 Lactobacillus Acidophilus (Florajen3 Capsule) 1 each BID PO Last administered on 04/14/18 09:45; Admin Dose 1 EACH; Start 04/12/18 at 09:00 Tobramycin (Tobramycin Iv Per Pharmacy) TOBRAMYCIN PER PHARMACY NOTE XX ; Start 04/11/18 at 18:30 Alteplase, Recombinant (Cathflo (Activase)) 2 mg MAY REPEAT X1 PRN CATHETER IF CATHETER REMAINS OCCULUDED; Start 04/11/18 at 18:30 Vancomycin HCl (Vanco Iv Per Pharmacy) VANCOMYCIN PER PHARMACY PER PROTOCOL XX ; Start 04/11/18 at 19:30 Furosemide (Lasix) 40 mg DAILY IV Last administered on 04/14/18at 09:45; Admin Dose 40 MG; Start 04/12/18 at 13:00 Vancomycin/Sodium Chloride 250 ml @ 125 mls/hr Q12H IVPB Last administered on 04/14/18at 04:19; Admin Dose 125 MLS/HR; Start 04/12/18 at 16:00 Lorazepam (Ativan) 1 mg Q4H PRN IV AGITATION/ANXIETY Last administered on 04/14/18at 08:13; Admin Dose 1 MG; Start 04/13/18 at 10:00 Tobramycin 320 mg/ Sodium Chloride 108 ml @ 108 mls/hr Q36H IVPB Last administered on 04/14/18at 10:25; Admin Dose 108 MLS/HR; Start 04/14/18 at 10:00 Hydroxyzine Pamoate (Vistaril) 25 mg Q4H PRN PO itching; Start 04/14/18 at 02:30 Potassium Chloride 100 ml @ 50 mls/hr Q2H IVPB ; Start 04/14/18 at 12:30; Stop 04/14/18 at 16:29 DELANO SALEEM NP Apr 14, 2018 12:49
--- NOTE | 2018-04-14 14:24 | PN ---
Date/Time of Note Date/Time of Note DATE: 04/14/18 TIME: 14:20 Assessment/Plan VTE Prophylaxis Risk score (from Nsg)>0 risk: 6 SCD applied (from Nsg): Yes Pharmacological prophylaxis: heparin Lines/Catheters IV Catheter Type (from Nrsg): PICC Line Central line still needed: Yes Urinary Cath still in place: No Assessment/Plan Assessment/Plan 77-year-old woman coming in with shortness of breath and hypoxia, signs of respiratory distress with findings of pneumonia on chest x-ray, possibly secondary to Pseudomonas. 1. Respiratory distress again with hypoxia and shortness of breath -white blood cell count improved chest x-ray findings positive for pneumonia. -Based on prior sensitivities she had drawn here, for now continue tobramycin IV -Follow-up recommendations from infectious disease consult and pulmonary consult. -Follow-up PT/OT consults - Continue [place], DuoNeb p.r.n. 2. Hypothyroidism. Continue Synthroid. 3. History of chronic obstructive pulmonary disease. Continue DuoNeb p.r.n. 4. History of congestive heart failure. Again, her last echocardiogram was performed on 03/31/2018. At that time, it showed ejection fraction 45%, normal left ventricular cavity size, mild global left ventricular systolic dysfunction, -Consider restarting Lasix now 5. History of seizure disorder. No present issues. Ativan prn seizures. 6. History of [id number] myocardial infarction. No present issues. Continue with current cardiac medications, aspirin and Plavix. 7. History of dementia. 8. Atrial fibrillation. We will monitor on telemetry floor for now. Appears to be rate controlled at this point. 9. History of gastroesophageal reflux disease. Continue H2 brandy. 10. Deep venous thrombosis prophylaxis. Heparin subcutaneously. 11. Dysphagia. Pending video swallow evaluation. Result Diagram: 04/14/18 0249 04/14/18 0249 Subjective 24 Hr Interval Summary Free Text/Dictation Required Ativan again this morning. Otherwise patient appears improved from yesterday; smiling and breathing comfortably. Exam/Review of Systems Exam Vitals Vital Signs Date Temp Pulse Resp B/P (MAP) Pulse Ox O2 O2 Flow FiO2 Time Delivery Rate 04/14/18 97 12:52 04/14/18 98.2 16 157/79 99 Mechanical 11:49 (105) Ventilator 04/14/18 35 05:50 04/11/18 15 16:15 Intake and Output 04/13/18 04/13/18 04/14/18 1515:00 23:00 07:00 IntakeIntake Total 320 ml 250 ml BalanceBalance 320 ml 250 ml Exam GENERAL: lying in bed, no acute distress, awake and alert. HEENT: Pupils equal, round, reactive to light. Extraocular muscles intact. NECK: Trach in place. No signs of any bleeding or leakage around the trach site, connected to mechanical ventilation. LUNGS: Slightly distant breath sounds bilaterally. CARDIOVASCULAR: S1, S2 heard. No rubs or gallops. ABDOMEN: Soft, nontender, nondistended. Normal bowel sounds. No rebound or guarding. MUSCULOSKELETAL: Trace pitting edema, bilateral lower extremities to the mid calves. Medications Medication Current Medications IV Flush (NS 3 ml) 3 ml PER PROTOCOL IV ; Start 04/11/18 at 18:30 Ondansetron HCl (Zofran Inj) 4 mg Q6H PRN IV NAUSEA/VOMITING; Start 04/11/18 at 18:30 Acetaminophen (Tylenol Tab) 650 mg Q6H PRN PO .PAIN 1-3 OR TEMP; Start 04/11/18 at 18:30 Acetaminophen/ Hydrocodone Bitart ([place] (5/325)) 1 tab Q6H PRN PO .MOD PAIN 4- 6; Start 04/11/18 at 18:30 Morphine Sulfate (morphine) 2 mg Q4H PRN IV .SEVERE PAIN 7-10 Last administered on 04/12/18at 20:54; Admin Dose 2 MG; Start 04/11/18 at 18:30 Docusate Sodium (Colace) 100 mg Q12H PRN PO .CONSTIPATION; Start 04/11/18 at 18:30 Magnesium Hydroxide (Milk Of Mag) 30 ml DAILY PRN PO .CONSTIPATION; Start 04/11/18 at 18:30 Heparin Sodium (Porcine) (Heparin (5000 Units/1ml)) 5,000 unit Q12 SC Last administered on 04/14/18at 10:17; Admin Dose 5,000 UNIT; Start 04/11/18 at 21:00 Albuterol/ Ipratropium (Duoneb) 3 ml Q4H RESP THERAPY PRN HHN SHORTNESS OF BREATH Last administered on 04/14/18at 02:14; Admin Dose 3 ML; Start 04/11/18 at 18:30 Hydralazine HCl (Apresoline) 10 mg Q6H PRN IV ELEVATED BLOOD PRESSURE Last administered on 04/13/18 20:18; Admin Dose 10 MG; Start 04/11/18 at 18:30 Nitroglycerin (Nitroglycerin (Sl Tab) 0.4 Mg) 1 tab Q5M PRN SL ANGINA; Start 04/11/18 at 18:30 Allopurinol (Zyloprim) 100 mg DAILY GTB Last administered on 04/14/18 09:45; Admin Dose 100 MG; Start 04/12/18 at 09:00 Ascorbic Acid (Vitamin C) 500 mg DAILY GTB Last administered on 04/14/18 09:46; Admin Dose 500 MG; Start 04/12/18 at 09:00 Aspirin (Aspirin) 81 mg DAILY PO Last administered on 04/14/18 09:45; Admin Dose 81 MG; Start 04/12/18 at 09:00 Atorvastatin Calcium (Lipitor) 20 mg QHS GTB Last administered on 04/12/18 20:19; Admin Dose 20 MG; Start 04/11/18 at 21:00 Bisacodyl (Dulcolax Supp) 10 mg Q24H PRN MD CONSTIPATION; Start 04/11/18 at 18:30 Chlorhexidine Gluconate (Peridex) 15 ml Q12 MM Last administered on 04/14/18 09:45; Admin Dose 15 ML; Start 04/11/18 at 23:00 Clopidogrel Bisulfate (plaVIX) 75 mg DAILY GTB Last administered on 04/14/18 0 9:45; Admin Dose 75 MG; Start 04/12/18 at 09:00 Duloxetine HCl (Cymbalta) 60 mg DAILY GTB Last administered on 04/14/18 09:46; Admin Dose 60 MG; Start 04/12/18 at 09:00 Famotidine (Pepcid) 20 mg DAILY GTB Last administered on 04/14/18 09:46; Admin Dose 20 MG; Start 04/12/18 at 09:00 Hydralazine HCl (Apresoline) 10 mg Q8 PRN GTB ELEVATED BLOOD PRESSURE; Start 04/11/18 at 18:30 Lamotrigine (Lamictal) 200 mg DAILY GTB Last administered on 04/14/18 09:45; Admin Dose 200 MG; Start 04/12/18 at 09:00 Levothyroxine Sodium (Synthroid) 25 mcg BEFORE BREAKFAST PO Last administered on 04/13/18 06:29; Admin Dose 25 MCG; Start 04/12/18 at 07:00 Magnesium Hydroxide (Milk Of Mag) 30 ml DAILY PRN GTB CONSTIPATION; Start 04/11/18 at 18:30 Mineral Oil (Fleet Mineral Oil Enema) 133 ml DAILY PRN MD CONSTIPATION; Start 04/11/18 at 18:30 Montelukast Sodium (Singulair) 10 mg QHS GTB Last administered on 04/12/18 20:19; Admin Dose 10 MG; Start 04/11/18 at 21:00 Multivitamins Therapeutic (Theragran) 1 tab DAILY GTB Last administered on 04/14/18 09:46; Admin Dose 1 TAB; Start 04/12/18 at 09:00 Pramipexole (Mirapex) 0.5 mg HS GTB Last administered on 04/12/18 20:54; Admin Dose 0.5 MG; Start 04/11/18 at 21:00 Primidone (Mysoline) 250 mg QHS GTB Last administered on 04/12/18 20:54; Admin Dose 250 MG; Start 04/11/18 at 21:00 Sertraline HCl (Zoloft) 25 mg DAILY GTB Last administered on 04/14/18 09:46; Admin Dose 25 MG; Start 04/12/18 at 09:00 Simethicone (Mylicon) 80 mg Q6H PRN GTB DISTENSION/GAS/BLOATING Last administered on 04/11/18 23:20; Admin Dose 80 MG; Start 04/11/18 at 18:30 Lactobacillus Acidophilus (Florajen3 Capsule) 1 each BID PO Last administered on 04/14/18 09:45; Admin Dose 1 EACH; Start 04/12/18 at 09:00 Tobramycin (Tobramycin Iv Per Pharmacy) TOBRAMYCIN PER PHARMACY NOTE XX ; Start 04/11/18 at 18:30 Alteplase, Recombinant (Cathflo (Activase)) 2 mg MAY REPEAT X1 PRN CATHETER IF CATHETER REMAINS OCCULUDED; Start 04/11/18 at 18:30 Furosemide (Lasix) 40 mg DAILY IV Last administered on 04/14/18at 09:45; Admin Dose 40 MG; Start 04/12/18 at 13:00 Lorazepam (Ativan) 1 mg Q4H PRN IV AGITATION/ANXIETY Last administered on 04/14/18at 08:13; Admin Dose 1 MG; Start 04/13/18 at 10:00 Tobramycin 320 mg/ Sodium Chloride 108 ml @ 108 mls/hr Q36H IVPB Last adminis tered on 04/14/18at 10:25; Admin Dose 108 MLS/HR; Start 04/14/18 at 10:00 Hydroxyzine Pamoate (Vistaril) 25 mg Q4H PRN PO itching; Start 04/14/18 at 02:30 Potassium Chloride 100 ml @ 50 mls/hr Q2H IVPB ; Start 04/14/18 at 12:30; Stop 04/14/18 at 16:29 Doxycycline Hyclate 100 mg/ Sodium Chloride 250 ml @ 250 mls/hr Q12 IVPB ; Start 04/14/18 at 21:00; Stop 04/19/18 at 20:59 MERLY GAYLE MD Apr 14, 2018 14:24
--- NOTE | 2018-04-14 15:20 | CONS ---
Consult Date/Type/Reason Admit Date/Time Apr 11, 2018 at 17:11 Initial Consult Date Type of Consult Pulmonary Date/Time of Note DATE: 04/14/18 TIME: 15:17 Subjective Remains stable this morning. Objective Vital Signs Date Temp Pulse Resp B/P (MAP) Pulse Ox O2 O2 Flow FiO2 Time Delivery Rate 04/14/18 97 12:52 04/14/18 98.2 16 157/79 99 Mechanical 11:49 (105) Ventilator 04/14/18 35 05:50 04/11/18 15 16:15 Intake and Output 04/13/18 04/13/18 04/14/18 1515:00 23:00 07:00 IntakeIntake Total 320 ml 250 ml BalanceBalance 320 ml 250 ml Exam PHYSICAL EXAMINATION: GENERAL: Well-nourished, well-developed lady, comfortable at rest, no acute distress. Currently continues mechanical ventilation via tracheostomy. VITAL SIGNS: NECK: Trach site clean and intact. CARDIAC: S1, S2, no added sounds or murmurs. CHEST: Diminished air entry bilaterally. ABDOMEN: Soft, nontender. No guarding or rebound. EXTREMITIES: No cyanosis, clubbing or edema. NEUROLOGICAL: Grossly intact. No focal deficits. Vent Setting Ventilator Support Mode: AC Fraction of Inspired Oxygen pe: 35 Positive End Expiratory Pressu: 5.0 Results/Medications Result Diagram: 04/14/18 0249 04/14/18 0249 Results 24 hrs Laboratory Tests Test 04/14/18 02:49 White Blood Count 7.1 Red Blood Count 3.04 L Hemoglobin 9.6 L Hematocrit 30.6 L Mean Corpuscular Volume 100.7 Mean Corpuscular Hemoglobin 31.6 Mean Corpuscular Hemoglobin Concent 31.4 L Red Cell Distribution Width 14.6 H Platelet Count 238 Mean Platelet Volume 9.8 Immature Granulocytes % 0.400 Neutrophils % 80.2 H Lymphocytes % 9.9 L Monocytes % 8.6 Eosinophils % 0.3 Basophils % 0.6 Nucleated Red Blood Cells % 0.0 Immature Granulocytes # 0.030 Neutrophils # 5.7 Lymphocytes # 0.7 L Monocytes # 0.6 Eosinophils # 0.0 Basophils # 0.0 Nucleated Red Blood Cells # 0.0 Sodium Level 139 Potassium Level 3.1 L Chloride Level 104 Carbon Dioxide Level 27 Anion Gap 8 Blood Urea Nitrogen 17 Creatinine 0.56 Est Glomerular Filtrat Rate mL/min Glucose Level 81 Calcium Level 8.8 Vancomycin Level Trough 12.2 Medications Current Medications IV Flush (NS 3 ml) 3 ml PER PROTOCOL IV ; Start 04/11/18 at 18:30 Ondansetron HCl (Zofran Inj) 4 mg Q6H PRN IV NAUSEA/VOMITING; Start 04/11/18 at 18:30 Acetaminophen (Tylenol Tab) 650 mg Q6H PRN PO .PAIN 1-3 OR TEMP; Start 04/11/18 at 18:30 Acetaminophen/ Hydrocodone Bitart ([place] (5/325)) 1 tab Q6H PRN PO .MOD PAIN 4- 6; Start 04/11/18 at 18:30 Morphine Sulfate (morphine) 2 mg Q4H PRN IV .SEVERE PAIN 7-10 Last administered on 04/12/18at 20:54; Admin Dose 2 MG; Start 04/11/18 at 18:30 Docusate Sodium (Colace) 100 mg Q12H PRN PO .CONSTIPATION; Start 04/11/18 at 18:30 Magnesium Hydroxide (Milk Of Mag) 30 ml DAILY PRN PO .CONSTIPATION; Start 04/11/18 at 18:30 Heparin Sodium (Porcine) (Heparin (5000 Units/1ml)) 5,000 unit Q12 SC Last administered on 04/14/18at 10:17; Admin Dose 5,000 UNIT; Start 04/11/18 at 21:00 Albuterol/ Ipratropium (Duoneb) 3 ml Q4H RESP THERAPY PRN HHN SHORTNESS OF BREATH Last administered on 04/14/18at 02:14; Admin Dose 3 ML; Start 04/11/18 at 18:30 Hydralazine HCl (Apresoline) 10 mg Q6H PRN IV ELEVATED BLOOD PRESSURE Last administered on 04/13/18at 20:18; Admin Dose 10 MG; Start 04/11/18 at 18:30 Nitroglycerin (Nitroglycerin (Sl Tab) 0.4 Mg) 1 tab Q5M PRN SL ANGINA; Start 04/11/18 at 18:30 Allopurinol (Zyloprim) 100 mg DAILY GTB Last administered on 04/14/18at 09:45; Admin Dose 100 MG; Start 04/12/18 at 09:00 Ascorbic Acid (Vitamin C) 500 mg DAILY GTB Last administered on 04/14/18 09:46; Admin Dose 500 MG; Start 04/12/18 at 09:00 Aspirin (Aspirin) 81 mg DAILY PO Last administered on 04/14/18 09:45; Admin Dose 81 MG; Start 04/12/18 at 09:00 Atorvastatin Calcium (Lipitor) 20 mg QHS GTB Last administered on 04/12/18 20:19; Admin Dose 20 MG; Start 04/11/18 at 21:00 Bisacodyl (Dulcolax Supp) 10 mg Q24H PRN OR CONSTIPATION; Start 04/11/18 at 18:30 Chlorhexidine Gluconate (Peridex) 15 ml Q12 MM Last administered on 04/14/18 09:45; Admin Dose 15 ML; Start 04/11/18 at 23:00 Clopidogrel Bisulfate (plaVIX) 75 mg DAILY GTB Last administered on 04/14/18 09:45; Admin Dose 75 MG; Start 04/12/18 at 09:00 Duloxetine HCl (Cymbalta) 60 mg DAILY GTB Last administered on 04/14/18 09:46; Admin Dose 60 MG; Start 04/12/18 at 09:00 Famotidine (Pepcid) 20 mg DAILY GTB Last administered on 04/14/18 09:46; Admin Dose 20 MG; Start 04/12/18 at 09:00 Hydralazine HCl (Apresoline) 10 mg Q8 PRN GTB ELEVATED BLOOD PRESSURE; Start 04/11/18 at 18:30 Lamotrigine (Lamictal) 200 mg DAILY GTB Last administered on 04/14/18 09:45; Admin Dose 200 MG; Start 04/12/18 at 09:00 Levothyroxine Sodium (Synthroid) 25 mcg BEFORE BREAKFAST PO Last administered on 04/13/18 06:29; Admin Dose 25 MCG; Start 04/12/18 at 07:00 Magnesium Hydroxide (Milk Of Mag) 30 ml DAILY PRN GTB CONSTIPATION; Start 04/11/18 at 18:30 Mineral Oil (Fleet Mineral Oil Enema) 133 ml DAILY PRN OR CONSTIPATION; Start 04/11/18 at 18:30 Montelukast Sodium (Singulair) 10 mg QHS GTB Last administered on 04/12/18 20:19; Admin Dose 10 MG; Start 04/11/18 at 21:00 Multivitamins Therapeutic (Theragran) 1 tab DAILY GTB Last administered on 04/14/18 09:46; Admin Dose 1 TAB; Start 04/12/18 at 09:00 Pramipexole (Mirapex) 0.5 mg HS GTB Last administered on 04/12/18 20:54; Admin Dose 0.5 MG; Start 04/11/18 at 21:00 Primidone (Mysoline) 250 mg QHS GTB Last administered on 04/12/18 20:54; Admin Dose 250 MG; Start 04/11/18 at 21:00 Sertraline HCl (Zoloft) 25 mg DAILY GTB Last administered on 04/14/18 09:46; Admin Dose 25 MG; Start 04/12/18 at 09:00 Simethicone (Mylicon) 80 mg Q6H PRN GTB DISTENSION/GAS/BLOATING Last administered on 04/11/18 23:20; Admin Dose 80 MG; Start 04/11/18 at 18:30 Lactobacillus Acidophilus (Florajen3 Capsule) 1 each BID PO Last administered on 04/14/18 09:45; Admin Dose 1 EACH; Start 04/12/18 at 09:00 Tobramycin (Tobramycin Iv Per Pharmacy) TOBRAMYCIN PER PHARMACY NOTE XX ; Start 04/11/18 at 18:30 Alteplase, Recombinant (Cathflo (Activase)) 2 mg MAY REPEAT X1 PRN CATHETER IF CATHETER REMAINS OCCULUDED; Start 04/11/18 at 18:30 Furosemide (Lasix) 40 mg DAILY IV Last administered on 04/14/18 09:45; Admin Dose 40 MG; Start 04/12/18 at 13:00 Lorazepam (Ativan) 1 mg Q4H PRN IV AGITATION/ANXIETY Last administered on 03/27 08:13; Admin Dose 1 MG; Start 04/13/18 at 10:00 Tobramycin 320 mg/ Sodium Chloride 108 ml @ 108 mls/hr Q36H IVPB Last administered on 04/14/18 10:25; Admin Dose 108 MLS/HR; Start 04/14/18 at 10:00 Hydroxyzine Pamoate (Vistaril) 25 mg Q4H PRN PO itching; Start 04/14/18 at 02:30 Potassium Chloride 100 ml @ 50 mls/hr Q2H IVPB ; Start 04/14/18 at 12:30; Stop 04/14/18 at 16:29 Doxycycline Hyclate 100 mg/ Sodium Chloride 250 ml @ 250 mls/hr Q12 IVPB ; Start 04/14/18 at 21:00; Stop 04/19/18 at 20:59 Assessment/Plan Hospital Course (Demo Recall) IMPRESSION 1. Likely worsening congestive cardiac failure. Possible worsening aspiration. Would keep NPO and start TF until resp status improves. 2. Vent dependent respiratory failure. 3. History of chronic obstructive pulmonary disease. 4. History of coronary artery disease. 5. Hypothyroidism. Plan 1. Short course of antibiotics. 2. Diuretics. 3. Vent support. 4. DVT and GI prophylaxis. 5. Mendez culture. NPO except meds. Video swallow eval. 6. Guerra eval. MARC[facility] LEIVA [facility], [facility] Apr 14, 2018 15:20
[2018-04-14] MEDS: POTASSIUM CHLORIDE 100 ML IVPB SCH ×2 (15:34→16:08)
[2018-04-14] MEDS: hydrALAzine 20 MG INJ IV PRN (16:07)
[2018-04-14] MEDS: DOXYCYCLINE 100 MG in SOD CHLORIDE 0.9% 250 ML IVPB SCH ×2 (21:00→22:26)
[2018-04-14] MEDS: ATORVASTATIN 20 MG TAB GTB SCH (21:27)
[2018-04-14] MEDS: PRIMIDONE 250 MG TAB GTB SCH (21:27)
[2018-04-14] MEDS: PRAMIPEXOLE 0.25 MG TAB GTB SCH (21:27)
[2018-04-14] MEDS: MONTELUKAST 10 MG TAB GTB SCH (21:28)
[2018-04-14] MEDS ORDERED: morphine LIQ (10 MG/5 ML) CUP GTB PRN (23:00)
[2018-04-15] VITALS (18 sets, daily range): BP systolic 94–140; BP diastolic 49–71; PULSE 62–72; RESP 16–26
[2018-04-15] MEDS: ALBUTEROL/IPRATROPIUM (NEB) 3 ML AMP HHN PRN (03:03)
[2018-04-15] MEDS: LEVOTHYROXINE 25 MCG TAB PO SCH (06:02)
[2018-04-15] MEDS: DOXYCYCLINE 100 MG in SOD CHLORIDE 0.9% 250 ML IVPB SCH (08:57)
[2018-04-15] MEDS: CHLORHEXIDINE GLUCONATE 15 ML UD CUP MM SCH (09:00)
[2018-04-15] MEDS: ASPIRIN 81 MG TAB PO SCH (09:00)
[2018-04-15] MEDS: CLOPIDOGREL 75 MG TAB GTB SCH (09:00)
[2018-04-15] MEDS: FAMOTIDINE 20 MG TAB GTB SCH (09:01)
[2018-04-15] MEDS: ASCORBIC ACID 500 MG TAB GTB SCH (09:01)
[2018-04-15] MEDS: SERTRALINE 50 MG TAB GTB SCH (09:01)
[2018-04-15] MEDS: L ACIDOPHIL/B LACTIS/B LONGUM CAPSULE PO SCH (09:01)
[2018-04-15] MEDS: ALLOPURINOL 100 MG TAB GTB SCH (09:01)
[2018-04-15] MEDS: DULOXETINE 30 MG CAP DR GTB SCH (09:01)
[2018-04-15] MEDS: MULTIVITAMINS THERAPEUTIC TAB GTB SCH (09:01)
[2018-04-15] MEDS: LAMOTRIGINE 100 MG TAB GTB SCH (09:01)
[2018-04-15] MEDS: FUROSEMIDE 40 MG INJ IV SCH (09:02)
[2018-04-15] MEDS: HEPARIN 5,000 UNIT/1 ML VIAL SC SCH (09:24)
--- NOTE | 2018-04-15 10:30 | CONS ---
Assessment/Plan Assessment/Plan Hospital Course (Demo Recall) ID NOTE CURRENT ABX: =>Tobramycin IV + Doxy s/p Vanco IV 04/15/18 0601 04/15/18 0601 24H INTERVAL SUMMARY * A/A/O -- much improvement -- she feels near baseline - positive affect/mood despite critically illness on chronic VDRF * No fevers, VSS, able to communication mouthing words and writing. * Readmitted with SIRS vs early sepsis -- suspect PICC line vs HCAP = Hx of recent admission and treated for PSAR PNA * 04/14/18 CXR: IMPRESSION:1. Cardiomegaly and central pulmonary vascular congestion. Patchy right upper lobe and bilateral lower lobe infiltrates and bilateral pleural effusions, left greater than right. MICRO * 04/12/18 (+)MRSA Nares * 04/12/18 RESP Cx (+) GNR RESPIRATORY CULTURE Preliminary Organism 1 PSEUDOMONAS AERUGINOSA QUANTITY 1+ Organism 2 STENOTROPHOMONAS MALTOPHILIA QUANTITY 1+ P.AERUG P.AERUG STENMAL M.I.C. RX M.I.C. RX M.I.C. RX --------- --- --------- --- --------- --- AMIKACIN 4 S AZTREONAM I CEFEPIME I CEFTAZIDIME 16 S CIPROFLOXACIN >=4 R GENTAMICIN 4 S LEVOFLOXACIN >=8 R 1 S MEROPENEM >32 R TOBRAMYCIN <=1 S TRIMETHOPRIM/SULFAMETHOXAZOLE <=20 S PIPERACILLIN/TAZOBACTAM >=128 R * 04/11/18 URINE CX (-) * 04/11/18 BCX(-) * 03/30/2018 RESPIRATORY CULTURE Final Organism 1 PSEUDOMONAS AERUGINOSA QUANTITY 2+ PSEUDOMONAS AERUGINOSA IS MULTI DRUG RESISTANT ORGANISM P.AERUG P.AERUG M.I.C. RX M.I.C. RX --------- --- --------- --- AMIKACIN 8 S AZTREONAM I CEFEPIME 8 I CEFTAZIDIME 16 S CIPROFLOXACIN >=4 R GENTAMICIN 4 S LEVOFLOXACIN >=8 R MEROPENEM >32 R TOBRAMYCIN <=1 S PIPERACILLIN/TAZOBACTAM >=128 R PHYSICAL EXAMINATION: GENERAL: 76 yo F stable on the Vent, lethargic HEENT: AT, NC, anicteric NECK: Trach => Secure to Vent CHEST: Course BS HEART: RRR ABDOMEN: soft, peg EXT: Warm, mild edema x 4 extremities, skin rash upper-ext contact dermatitis under tape/Tegaderm SKIN: no RASH no diaphoresis ID ASSESSMENT: 76 yo F admit with: 1. SIRS w./transient early sepsis w/TMax NE 100.3, HR 100 bpm, B/P 100/51 due to PICC sepsis vs PNA => RESOLVING * Urine cx (-) 48H * 04/11/18 BCx(-) 2 Chronic respiratory failure, ventilator dependent via tracheostomy 3. Ventilator / Aspiration associated pneumonia * (+)MRSA Nares * 04/12/18 RESP Cx (+) GNR * Organism 1 PSEUDOMONAS AERUGINOSA 1+ * Organism 2 STENOTROPHOMONAS MALTOPHILIA 1+ 4. Hypertension with good control 5. Paroxysmal atrial fibrillation on Eliquis with good rate control 6. Hypothyroidism with good control 7. Chronic iron deficiency anemia on supplementation 8. Dyslipidemia 9. Morbid obesity 10. Adjustment disorder with depressed mood 12. Chronic dysphagia status post PEG tube placement, 13. PICC line w/local contact dermatitis/erythema/rash under plastic tape and Tegaderm -- monitor for superimposed cellulitis (+)MRSA Nares ->Bactroban INVASIVES: PIV, Trach, Peg ABX ALLERGY: LEVAQUIN CURRENT ABX: =>Tobramycin IV + Change Doxy to Bactrim s/p Vanco IV ID RECOMMENDATIONS/PLAN: 1. Continue Tobra 2. Change Doxy to Bactrim DS 1TAB BID via PEG to cover (+)MRSA Nares and (+)Stenotrophomonas 3. DC PLANNING: June DC to SNF on Tobra IV + Bactrim DS via GT x 7 days . Consultation Date/Type/Reason Admit Date/Time Apr 11, 2018 at 17:11 Initial Consult Date Date/Time of Note DATE: 04/15/18 TIME: 10:22 Exam/Review of Systems Exam Vitals Vital Signs Date Temp Pulse Resp B/P (MAP) Pulse Ox O2 O2 Flow FiO2 Time Delivery Rate 04/15/18 81 21 100 35 09:05 04/15/18 98.8 101/49 Mechanical 07:41 (66) Ventilator 04/11/18 15 16:15 Intake and Output 2/19/19 2/19/19 2/20/19 1515:00 23:00 07:00 IntakeIntake Total 0 ml 0 ml BalanceBalance 0 ml 0 ml Results Result Diagram: 04/15/18 0601 04/15/18 0601 Results 24hrs Laboratory Tests Test 04/15/18 06:01 White Blood Count 6.2 Red Blood Count 3.28 L Hemoglobin 10.4 L Hematocrit 32.6 L Mean Corpuscular Volume 99.4 Mean Corpuscular Hemoglobin 31.7 Mean Corpuscular Hemoglobin Concent 31.9 L Red Cell Distribution Width 14.6 H Platelet Count 269 Mean Platelet Volume 9.8 Immature Granulocytes % 0.500 H Neutrophils % 69.9 Lymphocytes % 13.3 L Monocytes % 12.0 H Eosinophils % 3.5 Basophils % 0.8 Nucleated Red Blood Cells % 0.0 Immature Granulocytes # 0.030 Neutrophils # 4.4 Lymphocytes # 0.8 Monocytes # 0.8 Eosinophils # 0.2 Basophils # 0.1 Nucleated Red Blood Cells # 0.0 Sodium Level 141 Potassium Level 3.5 Chloride Level 96 L Carbon Dioxide Level 31 Anion Gap 14 H Blood Urea Nitrogen 15 Creatinine 0.72 Est Glomerular Filtrat Rate mL/min Glucose Level 77 Calcium Level 9.0 Medications Medication Current Medications IV Flush (NS 3 ml) 3 ml PER PROTOCOL IV ; Start 04/11/18 at 18:30 Ondansetron HCl (Zofran Inj) 4 mg Q6H PRN IV NAUSEA/VOMITING; Start 04/11/18 at 18:30 Acetaminophen (Tylenol Tab) 650 mg Q6H PRN PO .PAIN 1-3 OR TEMP; Start 04/11/18 at 18:30 Acetaminophen/ Hydrocodone Bitart ([place] (5/325)) 1 tab Q6H PRN PO .MOD PAIN 4- 6; Start 04/11/18 at 18:30 Docusate Sodium (Colace) 100 mg Q12H PRN PO .CONSTIPATION Last administered on 04/14/18at 15:34; Admin Dose 100 MG; Start 04/11/18 at 18:30 Magnesium Hydroxide (Milk Of Mag) 30 ml DAILY PRN PO .CONSTIPATION Last administered on 04/14/18at 15:34; Admin Dose 30 ML; Start 04/11/18 at 18:30 Heparin Sodium (Porcine) (Heparin (5000 Units/1ml)) 5,000 unit Q12 SC Last administered on 04/15/18 09:24; Admin Dose 5,000 UNIT; Start 04/11/18 at 21:00 Albuterol/ Ipratropium (Duoneb) 3 ml Q4H RESP THERAPY PRN HHN SHORTNESS OF BREATH Last administered on 04/15/18 03:03; Admin Dose 3 ML; Start 04/11/18 at 18:30 Hydralazine HCl (Apresoline) 10 mg Q6H PRN IV ELEVATED BLOOD PRESSURE Last administered on 04/13/18 20:18; Admin Dose 10 MG; Start 04/11/18 at 18:30 Nitroglycerin (Nitroglycerin (Sl Tab) 0.4 Mg) 1 tab Q5M PRN SL ANGINA; Start 04/11/18 at 18:30 Allopurinol (Zyloprim) 100 mg DAILY GTB Last administered on 04/15/18 09:01; Admin Dose 100 MG; Start 04/12/18 at 09:00 Ascorbic Acid (Vitamin C) 500 mg DAILY GTB Last administered on 04/15/18 09:01; Admin Dose 500 MG; Start 04/12/18 at 09:00 Aspirin (Aspirin) 81 mg DAILY PO Last administered on 04/15/18 09:00; Admin Dose 81 MG; Start 04/12/18 at 09:00 Atorvastatin Calcium (Lipitor) 20 mg QHS GTB Last administered on 04/14/18 21:27; Admin Dose 20 MG; Start 04/11/18 at 21:00 Bisacodyl (Dulcolax Supp) 10 mg Q24H PRN NE CONSTIPATION; Start 04/11/18 at 18:30 Chlorhexidine Gluconate (Peridex) 15 ml Q12 MM Last administered on 04/15/18 0 9:00; Admin Dose 15 ML; Start 04/11/18 at 23:00 Clopidogrel Bisulfate (plaVIX) 75 mg DAILY GTB Last administered on 04/15/18 09:00; Admin Dose 75 MG; Start 04/12/18 at 09:00 Duloxetine HCl (Cymbalta) 60 mg DAILY GTB Last administered on 04/15/18 09:01; Admin Dose 60 MG; Start 04/12/18 at 09:00 Famotidine (Pepcid) 20 mg DAILY GTB Last administered on 04/15/18 09:01; Admin Dose 20 MG; Start 04/12/18 at 09:00 Hydralazine HCl (Apresoline) 10 mg Q8 PRN GTB ELEVATED BLOOD PRESSURE; Start 04/11/18 at 18:30 Lamotrigine (Lamictal) 200 mg DAILY GTB Last administered on 04/15/18 09:01; Admin Dose 200 MG; Start 04/12/18 at 09:00 Levothyroxine Sodium (Synthroid) 25 mcg BEFORE BREAKFAST PO Last administered on 04/15/18 06:02; Admin Dose 25 MCG; Start 04/12/18 at 07:00 Magnesium Hydroxide (Milk Of Mag) 30 ml DAILY PRN GTB CONSTIPATION; Start 04/11/18 at 18:30 Mineral Oil (Fleet Mineral Oil Enema) 133 ml DAILY PRN NE CONSTIPATION; Start 04/11/18 at 18:30 Montelukast Sodium (Singulair) 10 mg QHS GTB Last administered on 04/14/18 21:28; Admin Dose 10 MG; Start 04/11/18 at 21:00 Multivitamins Therapeutic (Theragran) 1 tab DAILY GTB Last administered on 04/15/18 09:01; Admin Dose 1 TAB; Start 04/12/18 at 09:00 Pramipexole (Mirapex) 0.5 mg HS GTB Last administered on 04/14/18 21:27; Admin Dose 0.5 MG; Start 04/11/18 at 21:00 Primidone (Mysoline) 250 mg QHS GTB Last administered on 04/14/18 21:27; Admin Dose 250 MG; Start 04/11/18 at 21:00 Sertraline HCl (Zoloft) 25 mg DAILY GTB Last administered on 04/15/18 09:01; Admin Dose 25 MG; Start 04/12/18 at 09:00 Simethicone (Mylicon) 80 mg Q6H PRN GTB DISTENSION/GAS/BLOATING Last administered on 04/11/18 23:20; Admin Dose 80 MG; Start 04/11/18 at 18:30 Lactobacillus Acidophilus (Florajen3 Capsule) 1 each BID PO Last administered on 2/20/19at 09:01; Admin Dose 1 EACH; Start 04/12/18 at 09:00 Tobramycin (Tobramycin Iv Per Pharmacy) TOBRAMYCIN PER PHARMACY NOTE XX ; Start 04/11/18 at 18:30 Alteplase, Recombinant (Cathflo (Activase)) 2 mg MAY REPEAT X1 PRN CATHETER IF CATHETER REMAINS OCCULUDED; Start 04/11/18 at 18:30 Furosemide (Lasix) 40 mg DAILY IV Last administered on 04/15/18at 09:02; Admin Dose 40 MG; Start 04/12/18 at 13:00 Lorazepam (Ativan) 1 mg Q4H PRN IV AGITATION/ANXIETY Last administered on 04/14/18at 21:40; Admin Dose 1 MG; Start 04/13/18 at 10:00 Tobramycin 320 mg/ Sodium Chloride 108 ml @ 108 mls/hr Q36H IVPB Last administered on 04/14/18at 10:25; Admin Dose 108 MLS/HR; Start 04/14/18 at 10:00 Hydroxyzine Pamoate (Vistaril) 25 mg Q4H PRN PO itching; Start 04/14/18 at 02:30 Doxycycline Hyclate 100 mg/ Sodium Chloride 250 ml @ 250 mls/hr Q12 IVPB Last administered on 04/15/18at 08:57; Admin Dose 250 MLS/HR; Start 04/14/18 at 21:00; Stop 04/19/18 at 20:59 Morphine Sulfate (morphine) 6 mg Q4H PRN GTB SEVERE PAIN LEVEL 7-10; Start 04/14/18 at 23:00 DELANO SALEEM NP Apr 15, 2018 10:29
[2018-04-15] MEDS: hydrOXYzine PAMOATE 25 MG CAP PO PRN ×2 (10:44→19:20)
--- NOTE | 2018-04-15 15:24 | CONS ---
Consult Date/Type/Reason Admit Date/Time Apr 11, 2018 at 17:11 Initial Consult Date Type of Consult Pulmonary Date/Time of Note DATE: 04/15/18 TIME: 15:22 Subjective Stable, ST recs noted Objective Vital Signs Date Temp Pulse Resp B/P (MAP) Pulse Ox O2 O2 Flow FiO2 Time Delivery Rate 04/15/18 96 26 100 35 13:40 04/15/18 98.6 140/60 Mechanical 11:32 (86) Ventilator 04/11/18 15 16:15 Intake and Output 04/14/18 04/14/18 04/15/18 1515:00 23:00 07:00 IntakeIntake Total 0 ml 0 ml BalanceBalance 0 ml 0 ml Exam PHYSICAL EXAMINATION: GENERAL: Well-nourished, well-developed lady, comfortable at rest, no acute distress. Currently continues mechanical ventilation via tracheostomy. VITAL SIGNS: NECK: Trach site clean and intact. CARDIAC: S1, S2, no added sounds or murmurs. CHEST: Diminished air entry bilaterally. ABDOMEN: Soft, nontender. No guarding or rebound. EXTREMITIES: No cyanosis, clubbing or edema. NEUROLOGICAL: Grossly intact. No focal deficits. Vent Setting Ventilator Support Mode: AC Fraction of Inspired Oxygen pe: 35 Positive End Expiratory Pressu: 5.0 Results/Medications Result Diagram: 04/15/18 0601 04/15/18 0601 Results 24 hrs Laboratory Tests Test 04/15/18 06:01 White Blood Count 6.2 Red Blood Count 3.28 L Hemoglobin 10.4 L Hematocrit 32.6 L Mean Corpuscular Volume 99.4 Mean Corpuscular Hemoglobin 31.7 Mean Corpuscular Hemoglobin Concent 31.9 L Red Cell Distribution Width 14.6 H Platelet Count 269 Mean Platelet Volume 9.8 Immature Granulocytes % 0.500 H Neutrophils % 69.9 Lymphocytes % 13.3 L Monocytes % 12.0 H Eosinophils % 3.5 Basophils % 0.8 Nucleated Red Blood Cells % 0.0 Immature Granulocytes # 0.030 Neutrophils # 4.4 Lymphocytes # 0.8 Monocytes # 0.8 Eosinophils # 0.2 Basophils # 0.1 Nucleated Red Blood Cells # 0.0 Sodium Level 141 Potassium Level 3.5 Chloride Level 96 L Carbon Dioxide Level 31 Anion Gap 14 H Blood Urea Nitrogen 15 Creatinine 0.72 Est Glomerular Filtrat Rate mL/min Glucose Level 77 Calcium Level 9.0 Medications Current Medications IV Flush (NS 3 ml) 3 ml PER PROTOCOL IV ; Start 04/11/18 at 18:30 Ondansetron HCl (Zofran Inj) 4 mg Q6H PRN IV NAUSEA/VOMITING; Start 04/11/18 at 18:30 Acetaminophen (Tylenol Tab) 650 mg Q6H PRN PO .PAIN 1-3 OR TEMP; Start 04/11/18 at 18:30 Acetaminophen/ Hydrocodone Bitart ([place] (5/325)) 1 tab Q6H PRN PO .MOD PAIN 4- 6; Start 04/11/18 at 18:30 Docusate Sodium (Colace) 100 mg Q12H PRN PO .CONSTIPATION Last administered on 04/14/18 15:34; Admin Dose 100 MG; Start 04/11/18 at 18:30 Magnesium Hydroxide (Milk Of Mag) 30 ml DAILY PRN PO .CONSTIPATION Last administered on 04/14/18 15:34; Admin Dose 30 ML; Start 04/11/18 at 18:30 Heparin Sodium (Porcine) (Heparin (5000 Units/1ml)) 5,000 unit Q12 SC Last administered on 04/15/18 09:24; Admin Dose 5,000 UNIT; Start 04/11/18 at 21:00 Albuterol/ Ipratropium (Duoneb) 3 ml Q4H RESP THERAPY PRN HHN SHORTNESS OF BREATH Last administered on 04/15/18 03:03; Admin Dose 3 ML; Start 04/11/18 at 18:30 Hydralazine HCl (Apresoline) 10 mg Q6H PRN IV ELEVATED BLOOD PRESSURE Last administered on 04/13/18 20:18; Admin Dose 10 MG; Start 04/11/18 at 18:30 Nitroglycerin (Nitroglycerin (Sl Tab) 0.4 Mg) 1 tab Q5M PRN SL ANGINA; Start 04/11/18 at 18:30 Allopurinol (Zyloprim) 100 mg DAILY GTB Last administered on 04/15/18 09:01; Admin Dose 100 MG; Start 04/12/18 at 09:00 Ascorbic Acid (Vitamin C) 500 mg DAILY GTB Last administered on 04/15/18 09:01; Admin Dose 500 MG; Start 04/12/18 at 09:00 Aspirin (Aspirin) 81 mg DAILY PO Last administered on 04/15/18 09:00; Admin Dose 81 MG; Start 04/12/18 at 09:00 Atorvastatin Calcium (Lipitor) 20 mg QHS GTB Last administered on 04/14/18 21:27; Admin Dose 20 MG; Start 04/11/18 at 21:00 Bisacodyl (Dulcolax Supp) 10 mg Q24H PRN MD CONSTIPATION; Start 04/11/18 at 18:30 Chlorhexidine Gluconate (Peridex) 15 ml Q12 MM Last administered on 04/15/18 09:00; Admin Dose 15 ML; Start 04/11/18 at 23:00 Clopidogrel Bisulfate (plaVIX) 75 mg DAILY GTB Last administered on 04/15/18 09:00; Admin Dose 75 MG; Start 04/12/18 at 09:00 Duloxetine HCl (Cymbalta) 60 mg DAILY GTB Last administered on 04/15/18 09:01; Admin Dose 60 MG; Start 04/12/18 at 09:00 Famotidine (Pepcid) 20 mg DAILY GTB Last administered on 04/15/18 09:01; Admin Dose 20 MG; Start 04/12/18 at 09:00 Hydralazine HCl (Apresoline) 10 mg Q8 PRN GTB ELEVATED BLOOD PRESSURE; Start 04/11/18 at 18:30 Lamotrigine (Lamictal) 200 mg DAILY GTB Last administered on 04/15/18 09:01; Admin Dose 200 MG; Start 04/12/18 at 09:00 Levothyroxine Sodium (Synthroid) 25 mcg BEFORE BREAKFAST PO Last administered on 04/15/18 06:02; Admin Dose 25 MCG; Start 04/12/18 at 07:00 Magnesium Hydroxide (Milk Of Mag) 30 ml DAILY PRN GTB CONSTIPATION; Start 04/11/18 at 18:30 Mineral Oil (Fleet Mineral Oil Enema) 133 ml DAILY PRN MD CONSTIPATION; Start 04/11/18 at 18:30 Montelukast Sodium (Singulair) 10 mg QHS GTB Last administered on 04/14/18 21:28; Admin Dose 10 MG; Start 04/11/18 at 21:00 Multivitamins Therapeutic (Theragran) 1 tab DAILY GTB Last administered on 04/15/18 09:01; Admin Dose 1 TAB; Start 04/12/18 at 09:00 Pramipexole (Mirapex) 0.5 mg HS GTB Last administered on 04/14/18 21:27; Admin Dose 0.5 MG; Start 04/11/18 at 21:00 Primidone (Mysoline) 250 mg QHS GTB Last administered on 04/14/18 21:27; Admin Dose 250 MG; Start 04/11/18 at 21:00 Sertraline HCl (Zoloft) 25 mg DAILY GTB Last administered on 04/15/18 09:01; Admin Dose 25 MG; Start 04/12/18 at 09:00 Simethicone (Mylicon) 80 mg Q6H PRN GTB DISTENSION/GAS/BLOATING Last administered on 04/11/18 23:20; Admin Dose 80 MG; Start 04/11/18 at 18:30 Lactobacillus Acidophilus (Florajen3 Capsule) 1 each BID PO Last administered on 04/15/18 09:01; Admin Dose 1 EACH; Start 04/12/18 at 09:00 Tobramycin (Tobramycin Iv Per Pharmacy) TOBRAMYCIN PER PHARMACY NOTE XX ; Start 04/11/18 at 18:30 Alteplase, Recombinant (Cathflo (Activase)) 2 mg MAY REPEAT X1 PRN CATHETER IF CATHETER REMAINS OCCULUDED; Start 04/11/18 at 18:30 Furosemide (Lasix) 40 mg DAILY IV Last administered on 04/15/18 09:02; Admin Dose 40 MG; Start 04/12/18 at 13:00 Lorazepam (Ativan) 1 mg Q4H PRN IV AGITATION/ANXIETY Last administered on 03/27 21:40; Admin Dose 1 MG; Start 04/13/18 at 10:00 Tobramycin 320 mg/ Sodium Chloride 108 ml @ 108 mls/hr Q36H IVPB Last administered on 04/14/18 10:25; Admin Dose 108 MLS/HR; Start 04/14/18 at 10:00 Hydroxyzine Pamoate (Vistaril) 25 mg Q4H PRN PO itching Last administered on 04/15/18 10:44; Admin Dose 25 MG; Start 04/14/18 at 02:30 Morphine Sulfate (morphine) 6 mg Q4H PRN GTB SEVERE PAIN LEVEL 7-10; Start 04/14/18 at 23:00 Trimethoprim/ Sulfamethoxazole (Bactrim (Ds)) 1 tab BID GTB ; Start 04/15/18 at 21:00; Stop 04/22/18 at 20:59 Miscellaneous Information (*Rx Drug Level Order Reminder*) BERNARD TR @ 2,100 ON ONCE ONCE XX ; Start 04/15/18 at 21:00; Stop 04/15/18 at 21:01 Assessment/Plan Hospital Course (Demo Recall) IMPRESSION 1. Likely worsening congestive cardiac failure. Possible worsening aspiration. Would keep NPO and start TF until resp status improves. 2. Vent dependent respiratory failure. 3. History of chronic obstructive pulmonary disease. 4. History of coronary artery disease. 5. Hypothyroidism. Plan 1. Short course of antibiotics. 2. Diuretics. 3. Vent support. 4. DVT and GI prophylaxis. 5. Mendez culture. NPO except meds. Video swallow eval. transfer to [facility]; MARCOS LEIVA MD, [facility] Apr 15, 2018 15:24
[2018-04-15] MEDS: LORAZEPAM 2 MG INJ IV PRN (15:36)
--- NOTE | 2018-04-15 17:53 | DS ---
Date/Time of Note Date/Time of Note DATE: 04/15/18 TIME: 17:50 Discharge Summary Admission/Discharge Info Admit Date/Time Apr 11, 2018 at 17:11 Discharge Date/Time Apr 15, 2018 Discharge Diagnosis Ventilator-associated pneumonia Patient Condition: Fair Consults Dr. Meng, pulmonary Dr. Reid, infectious disease Procedures None Hx of Present Illness A 77-year-old female with past medical history based on records of dementia, AF ib, GERD, prior pseudomonas pneumonia, [id number] myocardial infarction, trach placement secondary to respiratory failure, hypertension, hypothyroidism, seizure disorder, CHF, COPD and possible depression who was sent over from snf facility earlier today because of shortness of breath and hypoxia. Most of the information is obtained from the ER documentation as the patient is unable to provide a full HPI. Per records, the patient was in her usual state of health until about 30 minutes prior to arrival when she had some O2 saturations in the 80s. She also had acute respiratory distress. She was sent over to the ER. She did have bag ventilation via the trach when she arrived. She had chest x-ray performed today that showed stable tracheostomy and left PICC line but development of an extensive left lower lobe infiltrate with small left pleural effusion and pulmonary vascular congestion and her white count was 12.2 on admission. She also had a rectal temperature of 100.2. She was given breathing treatment in the ER as well as ceftazidime and vancomycin. The patient was recently at our hospital, treated from 03/30/2018 to 04/02/2018. At that time, she was treated for pseudomonas pneumonia, ventilator-associated, suspect this may be a similar occurrence occurring right now. Hospital Course She was started on empiric antibiotics. Oxygenation remained appropriate, did not require transfer to ICU. CXR did show a new consolidation. She also did require frequent IV Ativan for agitation. Respiratory culture grew drug- resistant pseudomonas as well as stenotrophomonas. Per ID, will continue tobramycin and also added Bactrim for MRSA colonization. She will be discharged to [place]. Home Meds Reported Medications Lactobacillus Acidophilus* (Lactinex*) 1 Tab Chew, 1 TAB GTB BID, TAB 04/11/18 Famotidine* (Famotidine*) 20 Mg Tablet, 20 MG GTB DAILY, #30 TAB 04/11/18 Clopidogrel Bisulfate (Clopidogrel) 75 Mg Tablet, 75 MG GTB DAILY, #30 TAB 04/11/18 Aspirin* (Aspirin* Chew) 81 Mg Tab.chew, 81 MG PO DAILY, TAB.CHEW 04/11/18 Levothyroxine Sodium* (Levothyroxine Sodium*) 25 Mcg Tablet, 25 MCG PO BEFORE BREAKFAST, #30 TAB 03/30/18 Montelukast Sodium* (Singulair*) 10 Mg Tablet, 10 MG GTB QHS, #30 TAB 03/30/18 Simethicone* (Mylicon*) 80 Mg Tab, 80 MG GTB Q6H PRN for DISTENSION/GAS/BLOATING, TAB 03/30/18 Sertraline Hcl* (Sertraline Hcl*) 25 Mg Tablet, 25 MG GTB DAILY, #30 TAB 03/30/18 Omeprazole* (Omeprazole*) 20 Mg Capsule.dr, 20 MG GTB AC BREAKFAST, #30 CAP 03/30/18 Furosemide* (Furosemide*) 40 Mg Tablet, 40 MG GTB DAILY, TAB 03/30/18 Duloxetine Hcl* (Cymbalta*) 60 Mg Capsule.dr, 60 MG GTB DAILY, CAP 03/30/18 Ascorbic Acid* (Vitamin C*) 500 Mg Capsule.sa, 500 MG GTB DAILY, CAP 02/14/17 Cran/Vitc/Mannose/Inulin/Brom (Uti-Stat Liquid) 3,875 Mg/30 Ml Liquid, 3875 MG GTB BID 02/14/17 Acetaminophen* (Acetaminophen*) 650 Mg Tablet, 650 MG GTB Q4 PRN for PAIN AND OR ELEVATED TEMP, #30 TAB 02/14/17 Primidone* (Mysoline*) 250 Mg Tablet, 250 MG GTB QHS, TAB 02/14/17 Pramipexole* (Pramipexole*) 0.5 Mg Tablet, 0.5 MG GTB HS, TAB 02/14/17 Hydrocodone/Acetaminophen ([place] 5-325 Tablet) 1 Each Tablet, 1 EACH GTB Q8 PRN for SEVERE PAIN LEVEL 7-10, TAB 02/14/17 Multivitamins* (Theragran*) 1 Tab Tab, 1 TAB GTB DAILY, TAB 02/14/17 Magnesium Hydroxide* (Milk Of Magnesia*) 400 Mg/5 Ml Oral.susp, 30 ML GTB DAILY PRN for CONSTIPATION, ML 12/22/17 Lamotrigine* (Lamotrigine*) 200 Mg Tablet, 200 MG GTB DAILY, TAB 02/14/17 Hydralazine Hcl* (Hydralazine Hcl*) 10 Mg Tablet, 10 MG GTB Q8 PRN for ELEVATED BLOOD PRESSURE, #90 TAB 02/14/17 Mineral Oil* (Fleet* Mineral Oil Enema) 133 Ml Oil, 133 ML AR DAILY PRN for CONSTIPATION, ENEMA 02/14/17 Bisacodyl* (Bisacodyl*) 10 Mg Supp, 10 MG AR Q24H PRN for CONSTIPATION, SUPP 02/14/17 Docusate Sodium* (Colace*) 100 Mg Capsule, 100 MG GTB QHS PRN for CONSTIPATION, #30 CAP 02/14/17 Chlorhexidine Gluconate (Peridex) 473 Ml Mouthwash, 473 ML MM Q12, BOTTLE 02/14/17 Atorvastatin Calcium* (Atorvastatin Calcium*) 20 Mg Tablet, 20 MG GTB QHS, #30 TAB 02/14/17 Lorazepam* (Ativan*) 0.5 Mg Tablet, 0.5 MG GTB Q6 PRN for ANXIETY, #30 TAB 02/14/17 Allopurinol* (Allopurinol*) 100 Mg Tablet, 100 MG GTB DAILY, TAB 02/14/17 Albuterol Sulfate* (Albuterol Sulfate* Neb) 0.083%-3 Ml Neb, 2.5 MG NEB Q6 PRN for WHEEZING AND SOB, #30 VIAL 02/14/17 Discontinued Reported Medications Lactobacillus Acidophilus* (Lactinex*) 1 Tab Chew, 1 TAB PO BID, TAB 03/30/18 Primary Care Provider Michael Kelley MD Time spent on discharge: > 30 minutes Pending Labs Laboratory Tests Test 04/15/18 06:01 White Blood Count 6.2 10^3/ul (4.8-10.8) Red Blood Count 3.28 10^6/ul (4.20-5.40) Hemoglobin 10.4 g/dl (12.0-16.0) Hematocrit 32.6 % (37.0-47.0) Mean Corpuscular Volume 99.4 fl (82.0-101.0) Mean Corpuscular Hemoglobin 31.7 pg (29.0-33.0) Mean Corpuscular Hemoglobin Concent 31.9 g/dl (32.0-37.0) Red Cell Distribution Width 14.6 % (11.5-14.5) Platelet Count 269 10^3/UL (140-415) Mean Platelet Volume 9.8 fl (7.4-10.4) Immature Granulocytes % 0.500 % (0.001-0.429) Neutrophils % 69.9 % (39.0-77.0) Lymphocytes % 13.3 % (15.0-51.0) Monocytes % 12.0 % (0.0-11.0) Eosinophils % 3.5 % (0.0-7.0) Basophils % 0.8 % (0.0-2.0) Nucleated Red Blood Cells % 0.0 /100WBC (0.0-0.0) Immature Granulocytes # 0.030 10^3/ul (0.0-0.031) Neutrophils # 4.4 10^3/ul (1.6-7.5) Lymphocytes # 0.8 10^3/ul (0.8-2.9) Monocytes # 0.8 10^3/ul (0.3-0.9) Eosinophils # 0.2 10^3/ul (0.0-0.5) Basophils # 0.1 10^3/ul (0.0-0.1) Nucleated Red Blood Cells # 0.0 10^3/ul (0.0-0.0) Sodium Level 141 mmol/L (135-144) Potassium Level 3.5 mmol/L (3.5-5.1) Chloride Level 96 mmol/L (97-110) Carbon Dioxide Level 31 mmol/L (21-31) Anion Gap 14 (5-13) Blood Urea Nitrogen 15 mg/dl (7-20) Creatinine 0.72 mg/dl (0.44-1.00) Est Glomerular Filtrat Rate mL/min mL/min (>60) Glucose Level 77 mg/dl (70-220) Calcium Level 9.0 mg/dl (8.4-10.2) MERLY GAYLE MD Apr 15, 2018 17:53
[2018-04-15] MEDS ORDERED: TRIMETHOPRIM/SULFAMETHOX (DS) TAB GTB SCH (21:00)
== END 2018-04-15 19:50 | disposition short-term general hospital (02) | DRG 871 ==
LOC: E/R 15:14 → TEL 17:11
PROVIDERS: ADMIT Hospitalist; ATTEND Internal Medicine
PROC: 5A1945Z Respiratory Ventilation, 24-96 Consecutive Hours (ICD-10-PCS; principal; 2018-04-11)
DX: A41.9 Sepsis, unspecified organism (principal); I50.23 Acute on chronic systolic (congestive) heart failure; J96.10 Chronic respiratory failure, unspecified whether with hypoxia or hypercapnia; Z99.11 Dependence on respirator [ventilator] status; J95.851 Ventilator associated pneumonia; E87.2 Acidosis; Y84.9 Medical procedure, unspecified as the cause of abnormal reaction of the patient, or of later complication, without mention of misadventure at the time of the procedure; R65.20 Severe sepsis without septic shock; I11.0 Hypertensive heart disease with heart failure; G20 Parkinson's disease; E78.5 Hyperlipidemia, unspecified; Z93.0 Tracheostomy status; E03.9 Hypothyroidism, unspecified; I25.2 Old myocardial infarction; J44.9 Chronic obstructive pulmonary disease, unspecified; G40.909 Epilepsy, unspecified, not intractable, without status epilepticus; I48.0 Paroxysmal atrial fibrillation; D50.9 Iron deficiency anemia, unspecified; E66.01 Morbid (severe) obesity due to excess calories; Z68.33 Body mass index [BMI] 33.0-33.9, adult; F43.21 Adjustment disorder with depressed mood; R13.10 Dysphagia, unspecified; I25.10 Atherosclerotic heart disease of native coronary artery without angina pectoris; B96.5 Pseudomonas (aeruginosa) (mallei) (pseudomallei) as the cause of diseases classified elsewhere; B96.89 Other specified bacterial agents as the cause of diseases classified elsewhere
CPT/HCPCS: 36415; 36600; 71045; 74230; 80048; 80053; 80061; 80200; 80202; 81001; 82803; 83036; 83605; 83735; 83880; 84100; 84439; 84443; 84484; 85025; 85610; 85730; 87040; 87070; 87081; 87086; 89220; 92526; 92610; 92611; 93005; 94002; 94003; 94640; 94644; 94664; 97161; 97166; A4310; J0360; J1644; J1940; J2060; J2270; J2997; J3260; J3370; J3480; J7030; J7050